=== PATIENT | female | born 1980 | race Caucasian/White ===

== ENCOUNTER 2016-05-11 00:57 | Emergency (ER) | payer MEDICAID ==
[~2016-05-11] VITALS: Ht 177.8 cm; Wt 84.8 kg
[~2016-05-11 00:57] MED LIST: ALBU8HFA4 IH; BENZ1TAB7 PO; DIAZ5TAB PO; GABA-534 PO; HYDR-3326 PO; IBUP-1610 PO; LORA1TAB PO; LURA60TA PO; METO10TA3 PO; NAPR375T4 PO; OMEP20CA10 PO; ONDA4TAB8 PO; PREN1TAB59 PO
[2016-05-11 01:31] LABS: *BILIRUBIN,URIN NEGATIVE (NEGATIVE); *BLOOD, URINE 2+ (NEGATIVE); *CLARITY,URINE CLEAR (CLEAR); *COLOR,URINE YELLOW (YELLOW); *KETONES,URINE NEGATIVE (NEGATIVE); *PROTEIN,URINE TRACE (NEGATIVE); *UROBILINOGEN,URINE 0.2 E.U./dl (NORMAL); LEUKOCYTE ESTERASE ,URINE NEGATIVE (NEGATIVE); NITRITE, URINE NEGATIVE (NEGATIVE); PH,URINE 5.5 (5.0-8.0); UGLUCOSE NEGATIVE (NEGATIVE)
[2016-05-11 01:37] LABS: RBC,URINE 50-80 /HPF (0-3)
[2016-05-11 01:38] LABS: *URINE HCG, QUAL NEGATIVE (NEGATIVE); BACTERIA,URINE FEW /HPF (NONE SEEN); MUCUS,URINE MODERATE /LPF (0-FEW); SQUAMOUS EPITHELIAL CELL,UR MANY /HPF (NONE SEEN); WBC,URINE 0-3 /HPF (0-3)
[2016-05-11] MEDS ORDERED: CEFTRIAXONE 1 G VIAL IM ONE (02:00)
[2016-05-11] MEDS ORDERED: LIDOCAINE HCL 1% 20 ML VIAL ONE (02:01)
[2016-05-11] MEDS ORDERED: CEFTRIAXONE 1 G VIAL ONE (02:01)
[2016-05-11] MEDS ORDERED: PROMETHAZINE HCL 25 MG/1 ML VIAL IM ONE (02:45)
[2016-05-11] MEDS ORDERED: HYDROMORPHONE 1 MG/1 ML DISP.SYRIN IM ONE (02:45)
[2016-05-11] MEDS ORDERED: PROMETHAZINE HCL 25 MG/1 ML VIAL ONE (02:56)
[2016-05-11] MEDS ORDERED: HYDROMORPHONE 2 MG/1 ML DISP.SYRIN ONE (02:56)
[2016-05-11 03:19] VITALS: BP 115/70
--- NOTE | 2016-05-11 03:19 | NUR ---
Patient discharged to home in stable conditon. Written and verbal after care instructions given. Patient verbalizes understanding of instructions.
== END 2016-05-11 03:19 | disposition home or self-care (01) ==
LOC: ER 01:02
DX: N20.0 Calculus of kidney (principal); J45.909 Unspecified asthma, uncomplicated; K21.9 Gastro-esophageal reflux disease without esophagitis; F32.9 Major depressive disorder, single episode, unspecified; Z88.8 Allergy status to other drugs, medicaments and biological substances
CPT/HCPCS: 74176; 81001; 84703; 96372 ×3; 99285; A4663; J0696; J1170; J2550; J3490

== ENCOUNTER 2016-05-13 21:20 | Emergency (ER) | payer MEDICAID ==
[~2016-05-13] VITALS: Ht 177.8 cm; Wt 84.8 kg
--- NOTE | 2016-05-13 21:23 | NUR ---
PT C/O ABDOMINAL PAIN,BACK PAIN AND PAINFUL URINATION SINCE 05/09/16. PT SAW OBGYN FOR PELVIC INFECTION ON 05/09/16 AND WAS DX WITH PELVIC INFECTION. HERE FOR WORSENING SYMPTOMS. PT IS ALERT, ORIENTED X 4, NO RESP DISTRESS NOTED OR REPORTED UPON ASSESSMENT. MD AT BEDSIDE...
[2016-05-13] MEDS ORDERED: KETOROLAC TROMETHAMINE 15 MG INJ IVP ONE (22:00)
[2016-05-13] MEDS ORDERED: IV NORMAL SALINE 1000 ML BAG IV ONE (22:00)
[2016-05-13] MEDS ORDERED: KETOROLAC TROMETHAMINE 15 MG INJ ONE (22:14)
[2016-05-13] MEDS ORDERED: ONDANSETRON IV *ER 4 MG/2 ML VIAL IV ONE (22:15)
[2016-05-13 22:24] LABS: BASOPHILS # (AUTO) 0.1 K/uL (0.0-0.2); BASOPHILS % (AUTO) 1.4 % (0.0-2.0); EOSINOPHILS # (AUTO) 0.1 K/uL (0.0-0.7); EOSINOPHILS % (AUTO) 0.9 % (0.0-7.0); HEMATOCRIT 41.1 % (37.0-47.0); HEMOGLOBIN 13.7 g/dL (12.0-16.0); LYMPHOCYTES # (AUTO) 2.7 K/uL (0.8-4.8); LYMPHOCYTES % (AUTO) 38.4 % (20.5-51.5); MEAN CORPUSCULAR HEMOGLOBIN 29.4 uug (27.0-31.0); MEAN CORPUSCULAR HGB CONC 33 g/dL (32.0-37.0); MONOCYTES # (AUTO) 0.5 K/uL (0.1-1.30); MONOCYTES % (AUTO) 7.6 % (0.0-11.0); NEUTROPHILS # (AUTO) 3.7 K/uL (1.8-8.9); NEUTROPHILS % (AUTO) 51.7 % (38.5-71.5); PLATELET COUNT (AUTO) 183 K/uL (150-450); RED BLOOD CELL COUNT(AUTO) 4.67 MIL/uL (4.20-5.40); RED CELL DISTRIBUTION WIDTH 13.3 % (11.5-14.5); WHITE BLOOD COUNT (AUTO) 7.1 K/uL (4.0-11.2)
[2016-05-13 22:29] LABS: CALCIUM 8.5 mg/dL (8.5-10.1); CREATININE 1.2 mg/dL (0.6-1.3); POTASSIUM 3.4 mmol/L (3.5-5.1)
[2016-05-13 22:35] LABS: ALBUMIN 4.2 g/dL (3.4-5.0); BILIRUBIN,DIRECT 0.1 mg/dL (0.0-0.2); BILIRUBIN,TOTAL 0.3 mg/dL (0.2-1.0); TOTAL PROTEIN, SERUM 7.4 g/dL (6.4-8.2)
[2016-05-13] MEDS ORDERED: ONDANSETRON 4 MG/2 ML VIAL ONE (22:35)
[2016-05-13 22:37] LABS: LACTIC ACID 1.5 mmol/L (0.4-2.0); TROPONIN I < 0.017 ng/mL (0.00-0.056)
--- NOTE | 2016-05-14 00:34 | NUR ---
Patient discharged to home in stable conditon. Written and verbal after care instructions given. Patient verbalizes understanding of instructions. pt walked out of ER unassisted with belongings at side...
[2016-05-14 00:35] VITALS: BP 131/97
== END 2016-05-14 00:36 | disposition home or self-care (01) ==
LOC: ER 21:20
DX: R31.9 Hematuria, unspecified (principal); E86.0 Dehydration; J45.909 Unspecified asthma, uncomplicated; K21.9 Gastro-esophageal reflux disease without esophagitis; F32.9 Major depressive disorder, single episode, unspecified; F10.20 Alcohol dependence, uncomplicated; F17.200 Nicotine dependence, unspecified, uncomplicated; F12.10 Cannabis abuse, uncomplicated; Z88.8 Allergy status to other drugs, medicaments and biological substances
CPT/HCPCS: 36415; 80048; 80076; 83605; 84484; 85025; 87040 ×2; 96361; 96374; 96375; 99285; A4663; J1885; J2405; J7030 ×2; 70030-TC

== ENCOUNTER 2016-05-21 23:36 | Emergency (ER) | payer MEDICAID, OTHER ==
[~2016-05-21] VITALS: Ht 177.8 cm; Wt 84.8 kg
[2016-05-21] MEDS ORDERED: [UNRECOGNIZED DRUG - REMARK] (23:58)
[2016-05-21] MEDS ORDERED: [UNRECOGNIZED DRUG - REMARK] (23:58)
[2016-05-22] MEDS ORDERED: ONDANSETRON 4 MG/2 ML VIAL IV ONE (00:15)
[2016-05-22] MEDS ORDERED: HYDROMORPHONE 1 MG/1 ML DISP.SYRIN IV ONE (00:15)
[2016-05-22] MEDS ORDERED: IV NORMAL SALINE 1000 ML BAG IV ONE (00:15)
[2016-05-22] MEDS ORDERED: HYDROMORPHONE 1 MG/1 ML DISP.SYRIN ONE (00:34)
[2016-05-22] MEDS ORDERED: ONDANSETRON 4 MG/2 ML VIAL ONE ×2 (00:34→02:44)
[2016-05-22 00:41] LABS: CALCIUM 10.8 mg/dL (8.5-10.1); CARBON DIOXIDE 25 mmol/L (21-32); CHLORIDE 103 mmol/L (98-107); CREATININE 0.9 mg/dL (0.6-1.3); GFR 71 mL/min (>60); GLUCOSE 99 mg/dL (74-106); POTASSIUM 3.7 mmol/L (3.5-5.1); SODIUM SERUM 139 mmol/L (136-145); UREA NITROGEN, BLOOD 20 mg/dL (7-18)
[2016-05-22 00:50] LABS: BASOPHILS # (AUTO) 0.1 K/uL (0.0-0.2); BASOPHILS % (AUTO) 0.8 % (0.0-2.0); EOSINOPHILS % (AUTO) 0.7 % (0.0-7.0); HEMATOCRIT 38.9 % (37.0-47.0); HEMOGLOBIN 13.3 g/dL (12.0-16.0); LYMPHOCYTES # (AUTO) 2.6 K/uL (0.8-4.8); LYMPHOCYTES % (AUTO) 39.9 % (20.5-51.5); MEAN CORPUSCULAR HGB CONC 34 g/dL (32.0-37.0); MEAN CORPUSCULAR VOLUME 88.1 fL (81.0-99.0); MONOCYTES # (AUTO) 0.6 K/uL (0.1-1.30); MONOCYTES % (AUTO) 9.8 % (0.0-11.0); NEUTROPHILS # (AUTO) 3.3 K/uL (1.8-8.9); NEUTROPHILS % (AUTO) 48.8 % (38.5-71.5); PLATELET COUNT (AUTO) 175 K/uL (150-450); RED BLOOD CELL COUNT(AUTO) 4.42 MIL/uL (4.20-5.40); RED CELL DISTRIBUTION WIDTH 13.2 % (11.5-14.5); WHITE BLOOD COUNT (AUTO) 6.6 K/uL (4.0-11.2)
[2016-05-22 00:52] LABS: ALANINE AMINOTRANSFERASE 22 U/L (14-59); ALBUMIN 4.2 g/dL (3.4-5.0); ALKALINE PHOSPHATASE 51 U/L (50-136); ASPARTATE AMINOTRANSFERASE 25 U/L (15-37); BILIRUBIN,DIRECT < 0.1 mg/dL (0.0-0.2); BILIRUBIN,TOTAL 0.4 mg/dL (0.2-1.0); LIPASE 84 U/L (73-393); TOTAL PROTEIN, SERUM 7.1 g/dL (6.4-8.2)
[2016-05-22] MEDS ORDERED: MAG HYDROX/AL HYDROX/SIMETH 30 ML LIQUID UDC PO ONE (01:00)
[2016-05-22] MEDS ORDERED: DICYCLOMINE HCL 10 MG/5 ML UDC LIQ PO ONE (01:00)
[2016-05-22] MEDS ORDERED: PANTOPRAZOLE SODIUM IV 40 MG in IV DEXTROSE 5% 100 ML IV ONE (01:00)
[2016-05-22 01:02] LABS: *BILIRUBIN,URIN NEGATIVE (NEGATIVE); *BLOOD, URINE Trace-lysed (NEGATIVE); *CLARITY,URINE SLIGHTLY CLOUDY (CLEAR); *COLOR,URINE YELLOW (YELLOW); *KETONES,URINE NEGATIVE (NEGATIVE); *PROTEIN,URINE NEGATIVE (NEGATIVE); *UROBILINOGEN,URINE 0.2 E.U./dl (NORMAL); LEUKOCYTE ESTERASE ,URINE NEGATIVE (NEGATIVE); NITRITE, URINE NEGATIVE (NEGATIVE); PH,URINE 6.5 (5.0-8.0); UGLUCOSE NEGATIVE (NEGATIVE)
[2016-05-22 01:07] LABS: *URINE HCG, QUAL NEGATIVE (NEGATIVE); BACTERIA,URINE FEW /HPF (NONE SEEN); RBC,URINE 0-3 /HPF (0-3); SQUAMOUS EPITHELIAL CELL,UR FEW /HPF (NONE SEEN); WBC,URINE 0-3 /HPF (0-3)
[2016-05-22] MEDS ORDERED: DICYCLOMINE HCL 10 MG/5 ML UDC LIQ ONE (01:09)
[2016-05-22] MEDS ORDERED: PANTOPRAZOLE SODIUM 40 MG VIAL ONE ×2 (01:09→02:44)
[2016-05-22] MEDS ORDERED: MAG HYDROX/AL HYDROX/SIMETH 30 ML LIQUID UDC ONE (01:09)
[2016-05-22] MEDS ORDERED: PANTOPRAZOLE SODIUM 40 MG VIAL IV ONE (02:30)
[2016-05-22] MEDS ORDERED: ONDANSETRON IV *ER 4 MG/2 ML VIAL IV ONE (02:30)
--- NOTE | 2016-05-22 02:45 | NUR ---
IV removed. Catheter intact and site benign. Pressure and 4x4 gauze applied to site. No bleeding noted.
[2016-05-22 02:48] VITALS: BP 128/88
--- NOTE | 2016-05-22 02:48 | NUR ---
Patient discharged to home in stable conditon. Written and verbal after care instructions given. Patient verbalizes understanding of instructions. Walked out of ER with steady gait
== END 2016-05-22 02:49 | disposition home or self-care (01) ==
LOC: ER 23:38
DX: K21.9 Gastro-esophageal reflux disease without esophagitis (principal); F32.9 Major depressive disorder, single episode, unspecified; J45.909 Unspecified asthma, uncomplicated; F10.20 Alcohol dependence, uncomplicated; F17.200 Nicotine dependence, unspecified, uncomplicated; F12.10 Cannabis abuse, uncomplicated; Z88.8 Allergy status to other drugs, medicaments and biological substances
CPT/HCPCS: 36415; 76705; 80048; 80076; 81001; 83690; 84703; 85025; 96361; 96365; 96375; 96376; 99285; A4663 ×2; C9113 ×2; J1170; J2405 ×2; J7030; J7060

== ENCOUNTER 2016-06-10 19:48 | Emergency (ER) | payer MEDICAID, OTHER ==
[~2016-06-10] VITALS: Ht 177.8 cm; Wt 81.6 kg
[~2016-06-10 19:48] MED LIST changes: +[UNRECOGNIZED DRUG - REMARK]; +[UNRECOGNIZED DRUG - REMARK]
--- NOTE | 2016-06-10 20:00 | NUR ---
PT WALKED INTO ER C/O LEFT FLANK PAIN X1 DAY
[2016-06-10] MEDS: OXYCODONE/APAP 5-325 MG TABLET PO ONE (20:08)
[2016-06-10] MEDS ORDERED: OXYCODONE/APAP 5-325 MG TABLET ONE (20:16)
[2016-06-10 20:31] LABS: *BILIRUBIN,URIN NEGATIVE (NEGATIVE); *BLOOD, URINE 2+ (NEGATIVE); *CLARITY,URINE CLEAR (CLEAR); *COLOR,URINE YELLOW (YELLOW); *KETONES,URINE NEGATIVE (NEGATIVE); *PROTEIN,URINE TRACE (NEGATIVE); *UROBILINOGEN,URINE 0.2 E.U./dl (NORMAL); LEUKOCYTE ESTERASE ,URINE TRACE (NEGATIVE); NITRITE, URINE NEGATIVE (NEGATIVE); PH,URINE 5.5 (5.0-8.0); UGLUCOSE NEGATIVE (NEGATIVE)
[2016-06-10 20:33] LABS: *URINE HCG, QUAL NEGATIVE (NEGATIVE)
[2016-06-10 20:37] LABS: BACTERIA,URINE MODERATE /HPF (NONE SEEN); SQUAMOUS EPITHELIAL CELL,UR FEW /HPF (NONE SEEN); WBC,URINE 20-50 /HPF (0-3)
[2016-06-10] MEDS: CEFTRIAXONE 1 G VIAL IM ONE (21:03)
[2016-06-10] MEDS: NITROFURANTOIN/NITROFURAN MAC 100 MG CAPSULE PO ONE (21:03)
[2016-06-10] MEDS: ONDANSETRON ODT 4 MG TAB.RAPDIS SL ONE (21:05)
[2016-06-10] MEDS ORDERED: CEFTRIAXONE 1 G VIAL ONE (21:09)
[2016-06-10] MEDS ORDERED: NITROFURANTOIN/NITROFURAN MAC 100 MG CAPSULE ONE (21:09)
[2016-06-10] MEDS ORDERED: LIDOCAINE HCL 1% 20 ML VIAL ONE (21:09)
--- NOTE | 2016-06-10 21:12 | NUR ---
Patient discharged to home in stable conditon WITH FAMILY TAKING PT HOME. Written and verbal after care instructions given. Patient verbalizes understanding of instructions. WALKED OUT OF ER WITH STEADY GAIT
[2016-06-10 21:13] VITALS: BP 128/77
[2016-06-10] MEDS ORDERED: ONDANSETRON ODT 4 MG TAB.RAPDIS ONE (21:15)
== END 2016-06-10 21:13 | disposition home or self-care (01) ==
LOC: ER 19:48
DX: N12 Tubulo-interstitial nephritis, not specified as acute or chronic (principal); J45.909 Unspecified asthma, uncomplicated; K21.9 Gastro-esophageal reflux disease without esophagitis; F32.9 Major depressive disorder, single episode, unspecified; F10.20 Alcohol dependence, uncomplicated; F12.10 Cannabis abuse, uncomplicated; F17.200 Nicotine dependence, unspecified, uncomplicated; Z88.8 Allergy status to other drugs, medicaments and biological substances
CPT/HCPCS: 84703; 87077; 87086; A4663; J0696; J3490; Q0162

== ENCOUNTER 2016-06-28 14:08 | Emergency (ER) | payer MEDICAID ==
[~2016-06-28] VITALS: Ht 177.8 cm; Wt 84.8 kg
[2016-06-28] MEDS ORDERED: ALPR2TAB7 PO (14:21)
[2016-06-28] MEDS ORDERED: OXYB10TA4 PO (14:21)
[2016-06-28] MEDS ORDERED: ARIP400S3 IM (14:21)
[2016-06-28] MEDS ORDERED: OXCA600T5 PO (14:21)
--- NOTE | 2016-06-28 15:55 | NUR ---
Patient discharged to home in stable conditon. Written and verbal after care instructions given. Patient verbalizes understanding of instructions.
[2016-06-28 15:56] VITALS: BP 112/70
== END 2016-06-28 15:56 | disposition home or self-care (01) ==
LOC: ER 14:08
DX: M54.9 Dorsalgia, unspecified (principal); J45.909 Unspecified asthma, uncomplicated; K21.9 Gastro-esophageal reflux disease without esophagitis; F32.9 Major depressive disorder, single episode, unspecified; F10.20 Alcohol dependence, uncomplicated; F17.200 Nicotine dependence, unspecified, uncomplicated; F12.10 Cannabis abuse, uncomplicated; Z88.8 Allergy status to other drugs, medicaments and biological substances
CPT/HCPCS: A4663

== ENCOUNTER 2016-08-01 09:10 | Emergency (ER) | payer MEDICAID ==
[~2016-08-01] VITALS: Ht 177.8 cm; Wt 81.2 kg
[~2016-08-01 09:10] MED LIST changes: +ALPR2TAB7 PO; +ARIP400S3 IM; -BENZ1TAB7 PO; -DIAZ5TAB PO; -GABA-534 PO; -HYDR-3326 PO; -LORA1TAB PO; -LURA60TA PO; -METO10TA3 PO; -NAPR375T4 PO; -ONDA4TAB8 PO; +OXCA600T5 PO; +OXYB10TA4 PO; -PREN1TAB59 PO; -[UNRECOGNIZED DRUG - REMARK]
--- NOTE | 2016-08-01 09:29 | NUR ---
Pt states that she sneezed and felt a "pop" in her lower back, hx previous surgery arould L5. Pt c/o pain, 10/21, ache w/sharp shooting pain on movement, pt denies new numbness/tingling (ongoing issue of same in right leg) in other limbs. No other complaints, minor distress noted.
[2016-08-01] MEDS ORDERED: KETOROLAC TROMETHAMINE 30 MG INJ IM ONE (10:00)
[2016-08-01] MEDS ORDERED: HYDROCODONE/APAP 5-325MG TABLET PO ONE (10:00)
--- NOTE | 2016-08-01 10:18 | NUR ---
gave pt RX and d/c instructions, verbalized understanding; driving
[2016-08-01] MEDS ORDERED: KETOROLAC TROMETHAMINE 30 MG INJ ONE (10:21)
[2016-08-01] MEDS ORDERED: HYDROCODONE/APAP 5-325MG TABLET ONE (10:21)
== END 2016-08-01 10:19 | disposition home or self-care (01) ==
LOC: ER 09:10
DX: M54.5 Low back pain (principal); G89.29 Other chronic pain; J45.909 Unspecified asthma, uncomplicated; K21.9 Gastro-esophageal reflux disease without esophagitis; F32.9 Major depressive disorder, single episode, unspecified; F10.20 Alcohol dependence, uncomplicated; F19.10 Other psychoactive substance abuse, uncomplicated; F17.200 Nicotine dependence, unspecified, uncomplicated; Z88.8 Allergy status to other drugs, medicaments and biological substances
CPT/HCPCS: 96372; 99283; A4663; J1885

== ENCOUNTER 2016-10-02 09:29 | Emergency (ER) | payer MEDICAID ==
[~2016-10-02] VITALS: Ht 177.8 cm; Wt 86.2 kg
[2016-10-02] MEDS ORDERED: TRAM50TA2 PO (09:44)
[2016-10-02] MEDS ORDERED: TOPI50TA PO (09:44)
[2016-10-02 09:53] LABS: *BILIRUBIN,URIN NEGATIVE (NEGATIVE); *BLOOD, URINE Trace-intact (NEGATIVE); *COLOR,URINE YELLOW (YELLOW); *KETONES,URINE NEGATIVE (NEGATIVE); *PROTEIN,URINE NEGATIVE (NEGATIVE); *UROBILINOGEN,URINE 0.2 E.U./dl (NORMAL); LEUKOCYTE ESTERASE ,URINE NEGATIVE (NEGATIVE); NITRITE, URINE NEGATIVE (NEGATIVE); PH,URINE 6.5 (5.0-8.0); UGLUCOSE NEGATIVE (NEGATIVE)
[2016-10-02 10:08] LABS: *CLARITY,URINE HAZY (CLEAR)
[2016-10-02 10:09] LABS: BACTERIA,URINE MANY /HPF (NONE SEEN); MUCUS,URINE FEW /LPF (0-FEW); SQUAMOUS EPITHELIAL CELL,UR FEW /HPF (NONE SEEN); WBC,URINE 0-3 /HPF (0-3)
[2016-10-02 10:17] LABS: *URINE HCG, QUAL NEGATIVE (NEGATIVE)
--- NOTE | 2016-10-02 10:19 | NUR ---
Patient discharged to home in stable conditon. Written and verbal after care instructions given. Patient verbalizes understanding of instructions.
== END 2016-10-02 10:22 | disposition home or self-care (01) ==
LOC: ER 09:29
DX: R30.0 Dysuria (principal); J45.909 Unspecified asthma, uncomplicated; K21.9 Gastro-esophageal reflux disease without esophagitis; G89.29 Other chronic pain; M54.9 Dorsalgia, unspecified; F17.200 Nicotine dependence, unspecified, uncomplicated; Z88.8 Allergy status to other drugs, medicaments and biological substances
CPT/HCPCS: 84703; A4663

== ENCOUNTER 2016-10-15 13:11 | Emergency (ER) | payer MEDICAID ==
[~2016-10-15] VITALS: Ht 177.8 cm; Wt 80.7 kg
[~2016-10-15 13:11] MED LIST changes: +TOPI50TA PO; +TRAM50TA2 PO
[2016-10-15] MEDS ORDERED: TOLT4CAP PO (13:50)
[2016-10-15] MEDS ORDERED: TOPI25TA49 PO (13:50)
[2016-10-15] MEDS ORDERED: OXCA300T PO (13:50)
[2016-10-15] MEDS ORDERED: ONDA4TAB11 PO (13:50)
[2016-10-15] MEDS ORDERED: POTA10TA21 PO (13:50)
[2016-10-15] MEDS ORDERED: [UNRECOGNIZED DRUG - OTHER] PO (13:50)
[2016-10-15] MEDS ORDERED: TRINTELLIX PO (13:54)
[2016-10-15] MEDS ORDERED: GABA-534 PO (13:54)
[2016-10-15 14:43] LABS: *BILIRUBIN,URIN NEGATIVE (NEGATIVE); *BLOOD, URINE 2+ (NEGATIVE); *CLARITY,URINE CLEAR (CLEAR); *COLOR,URINE YELLOW (YELLOW); *KETONES,URINE 1+ (NEGATIVE); *PROTEIN,URINE NEGATIVE (NEGATIVE); *UROBILINOGEN,URINE 0.2 E.U./dl (NORMAL); LEUKOCYTE ESTERASE ,URINE TRACE (NEGATIVE); NITRITE, URINE NEGATIVE (NEGATIVE); UGLUCOSE NEGATIVE (NEGATIVE)
[2016-10-15] MEDS ORDERED: ALBUTEROL SULFATE 2.5 MG/3 ML NEBU NEB ONE (14:45)
[2016-10-15 14:46] LABS: *URINE HCG, QUAL NEGATIVE (NEGATIVE)
[2016-10-15] MEDS ORDERED: ALBUTEROL SULFATE 2.5 MG/3 ML NEBU ONE (14:54)
[2016-10-15 14:57] LABS: BACTERIA,URINE NONE SEEN /HPF (NONE SEEN); SQUAMOUS EPITHELIAL CELL,UR FEW /HPF (NONE SEEN)
--- NOTE | 2016-10-15 15:31 | NUR ---
PT REC'D RESP TX.
--- NOTE | 2016-10-15 16:33 | NUR ---
MSE COMPLETED, PT D/C'D HOME, ACI/RX X1 GIVEN. PT STATED HER ABD PAIN WAS BETTER. PT AMBULATED W/O DIFF/TOOK ALL BELONGINGS.
[2016-10-15 16:54] VITALS: BP 108/76
== END 2016-10-15 16:54 | disposition home or self-care (01) ==
LOC: ER 13:19
DX: R10.9 Unspecified abdominal pain (principal); R30.0 Dysuria; R51 Headache; J45.909 Unspecified asthma, uncomplicated; K21.9 Gastro-esophageal reflux disease without esophagitis; F17.200 Nicotine dependence, unspecified, uncomplicated; Z88.8 Allergy status to other drugs, medicaments and biological substances
CPT/HCPCS: 84703; 87077; 87086; A4663

== ENCOUNTER 2016-11-03 17:05 | Emergency (ER) | payer MEDICAID ==
[~2016-11-03] VITALS: Ht 177.8 cm; Wt 79.4 kg
[~2016-11-03 17:05] MED LIST changes: -ARIP400S3 IM; +GABA-534 PO; -OMEP20CA10 PO; +ONDA4TAB11 PO; +OXCA300T PO; -OXCA600T5 PO; -OXYB10TA4 PO; +POTA10TA21 PO; +TOLT4CAP PO; +TOPI25TA49 PO; -TOPI50TA PO; +TRINTELLIX PO; -[UNRECOGNIZED DRUG - REMARK]
--- NOTE | 2016-11-03 17:59 | NUR ---
PT WAS EVALUATED BY DR SHANNON. PT WAS MDICATED ACCORDING TO ER MD ORDERS. PT TOLERATED TO MEDICATION WITHOUT COMPLICATIONS. PT WAS D/C TO HOME. D/C INSTRUCTIONS GIVEN TO THE PT.
[2016-11-03 18:00] VITALS: BP 136/77
== END 2016-11-03 18:01 | disposition home or self-care (01) ==
LOC: ER 17:05
DX: N76.0 Acute vaginitis (principal); K21.9 Gastro-esophageal reflux disease without esophagitis; J45.909 Unspecified asthma, uncomplicated; Z87.442 Personal history of urinary calculi; F17.200 Nicotine dependence, unspecified, uncomplicated; I34.1 Nonrheumatic mitral (valve) prolapse
CPT/HCPCS: 96372; 99283; A4663; J0696; J3490

== ENCOUNTER 2016-12-03 23:01 | Emergency (ER) | payer MEDICAID ==
[~2016-12-03] VITALS: Ht 177.8 cm; Wt 81.6 kg
[2016-12-03 23:55] LABS: *BILIRUBIN,URIN NEGATIVE (NEGATIVE); *BLOOD, URINE NEGATIVE (NEGATIVE); *CLARITY,URINE CLEAR (CLEAR); *COLOR,URINE YELLOW (YELLOW); *KETONES,URINE TRACE (NEGATIVE); *PROTEIN,URINE NEGATIVE (NEGATIVE); LEUKOCYTE ESTERASE ,URINE NEGATIVE (NEGATIVE); NITRITE, URINE NEGATIVE (NEGATIVE); UGLUCOSE NEGATIVE (NEGATIVE)
[2016-12-04 00:12] LABS: BACTERIA,URINE NONE SEEN /HPF (NONE SEEN); CALCIUM OXALATE CRYSTALS,UR MODERATE /HPF (NONE SEEN); MUCUS,URINE MODERATE /LPF (0-FEW); SQUAMOUS EPITHELIAL CELL,UR MODERATE /HPF (NONE SEEN)
[2016-12-04 00:17] LABS: *URINE HCG, QUAL NEGATIVE (NEGATIVE)
[2016-12-04] MEDS ORDERED: IBUPROFEN 800 MG TABLET PO ONE (01:15)
[2016-12-04] MEDS ORDERED: IBUPROFEN 800 MG TABLET ONE (01:37)
[2016-12-04 01:40] LABS: BASOPHILS # (AUTO) 0.1 K/uL (0.0-8.0); EOSINOPHILS # (AUTO) 0.1 K/uL (0.0-0.7); EOSINOPHILS % (AUTO) 1.3 % (0.0-7.0); HEMATOCRIT 42.3 % (37-47); LYMPHOCYTES % (AUTO) 33.3 % (20.5-51.5); MEAN CORPUSCULAR HEMOGLOBIN 29.9 UUG (27.0-31.0); MEAN CORPUSCULAR HGB CONC 33 g/dL (32.0-37.0); MEAN CORPUSCULAR VOLUME 90.3 FL (81.0-99.0); MONOCYTES # (AUTO) 0.9 K/UL (0.1-1.30); MONOCYTES % (AUTO) 9.6 % (0.0-11.0); NEUTROPHILS # (AUTO) 4.9 K/UL (1.8-8.9); NEUTROPHILS % (AUTO) 54.8 % (38.5-71.5); PLATELET COUNT (AUTO) 184 K/UL (150-450); RED BLOOD CELL COUNT(AUTO) 4.68 MIL/UL (4.2-5.4)
[2016-12-04 01:51] LABS: BILIRUBIN,DIRECT 0.1 mg/dL (0.0-0.2); BILIRUBIN,TOTAL 0.2 mg/dL (0.2-1.0); POTASSIUM 3.5 mmol/L (3.5-5.1)
[2016-12-04] MEDS ORDERED: BISACODYL 5 MG TABLET.DR PO ONE ×2 (03:15→03:16)
[2016-12-04] MEDS ORDERED: ONDANSETRON ODT 4 MG TAB.RAPDIS SL ONE (03:15)
[2016-12-04] MEDS ORDERED: ONDANSETRON ODT 4 MG TAB.RAPDIS ONE (03:29)
[2016-12-04] MEDS ORDERED: PHENAZOPYRIDINE HCL 100 MG TABLET PO ONE (03:30)
[2016-12-04 03:33] VITALS: BP 116/84
--- NOTE | 2016-12-04 03:33 | NUR ---
Patient discharged to home in stable conditon. Written and verbal after care instructions given. Patient verbalizes understanding of instructions.
[2016-12-04] MEDS ORDERED: PHENAZOPYRIDINE HCL 100 MG TABLET ONE (03:39)
== END 2016-12-04 03:35 | disposition home or self-care (01) ==
LOC: ER 23:02
DX: R30.0 Dysuria (principal); J45.909 Unspecified asthma, uncomplicated; K21.9 Gastro-esophageal reflux disease without esophagitis; G89.29 Other chronic pain; F17.200 Nicotine dependence, unspecified, uncomplicated
CPT/HCPCS: 36415; 74176; 80048; 80076; 81001; 83690; 84703; 85025; 87086; 99285; A4663; Q0162; 87077

== ENCOUNTER 2017-01-06 10:55 | Emergency (ER) | payer MEDICAID ==
[~2017-01-06] VITALS: Ht 177.8 cm; Wt 81.6 kg
--- NOTE | 2017-01-06 11:29 | NUR ---
Patient spilled the prednisone tablets on the floor. New tabs provided and patient took the pills successfully.
[2017-01-06] MEDS ORDERED: ALBUTEROL SULFATE 2.5 MG/3 ML NEBU NEB ONE (11:30)
[2017-01-06] MEDS ORDERED: IPRATROPIUM BROMIDE 0.5 MG/2.5 ML NEBU NEB ONE (11:30)
[2017-01-06] MEDS ORDERED: predniSONE 20 MG TABLET PO ONE (11:30)
[2017-01-06] MEDS ORDERED: ALBUTEROL SULFATE 2.5 MG/ 0.5 ML NEBU ONE (11:42)
[2017-01-06] MEDS ORDERED: IPRATROPIUM BROMIDE 0.5 MG/2.5 ML NEBU ONE (11:42)
[2017-01-06] MEDS ORDERED: predniSONE 50 MG TABLET ONE ×2 (11:43→11:45)
[2017-01-06] MEDS ORDERED: predniSONE 10 MG TABLET ONE ×2 (11:43→11:45)
--- NOTE | 2017-01-06 11:55 | NUR ---
Patient that she feels much better. Patient discharged to home in stable conditon. Written and verbal after care instructions given to patient. Patient verbalizes understanding of instructions.
== END 2017-01-06 11:57 | disposition home or self-care (01) ==
LOC: ER 10:55
DX: J45.901 Unspecified asthma with (acute) exacerbation (principal); G89.29 Other chronic pain; F32.9 Major depressive disorder, single episode, unspecified; I34.1 Nonrheumatic mitral (valve) prolapse; K21.9 Gastro-esophageal reflux disease without esophagitis; F17.200 Nicotine dependence, unspecified, uncomplicated; Z88.8 Allergy status to other drugs, medicaments and biological substances; Z90.49 Acquired absence of other specified parts of digestive tract
CPT/HCPCS: 94640; 99283; A4663; J3590; J7512 ×2

== ENCOUNTER 2017-02-19 11:02 | Emergency (ER) | payer MEDICAID ==
[~2017-02-19] VITALS: Ht 177.8 cm; Wt 81.6 kg
[~2017-02-19 11:02] MED LIST changes: -IBUP-1610 PO; +IBUP-1627 PO
--- NOTE | 2017-02-19 12:02 | NUR ---
Patient discharged to home in stable conditon. Written and verbal after care instructions given. Patient verbalizes understanding of instructions.
[2017-02-19 12:39] LABS: *BILIRUBIN,URIN NEGATIVE (NEGATIVE); *BLOOD, URINE 2+ (NEGATIVE); *CLARITY,URINE CLEAR (CLEAR); *COLOR,URINE YELLOW (YELLOW); *KETONES,URINE NEGATIVE (NEGATIVE); *PROTEIN,URINE NEGATIVE (NEGATIVE); *UROBILINOGEN,URINE 0.2 E.U./dl (NORMAL); LEUKOCYTE ESTERASE ,URINE NEGATIVE (NEGATIVE); NITRITE, URINE NEGATIVE (NEGATIVE); UGLUCOSE NEGATIVE (NEGATIVE)
[2017-02-19 12:40] LABS: *URINE HCG, QUAL NEGATIVE (NEGATIVE)
[2017-02-19 14:52] LABS: BACTERIA,URINE FEW /HPF (NONE SEEN); RBC,URINE 0-3 /HPF (0-3); SQUAMOUS EPITHELIAL CELL,UR FEW /HPF (NONE SEEN); WBC,URINE 0-3 /HPF (0-3)
== END 2017-02-19 12:05 | disposition home or self-care (01) ==
LOC: ER 11:02
DX: N39.0 Urinary tract infection, site not specified (principal); K21.9 Gastro-esophageal reflux disease without esophagitis; G89.29 Other chronic pain; J45.909 Unspecified asthma, uncomplicated; F17.200 Nicotine dependence, unspecified, uncomplicated; Z88.8 Allergy status to other drugs, medicaments and biological substances; Z90.49 Acquired absence of other specified parts of digestive tract
CPT/HCPCS: 84703; A4663

== ENCOUNTER 2017-05-06 22:14 | Emergency (ER) | payer MEDICAID ==
[~2017-05-06] VITALS: Ht 177.8 cm; Wt 81.6 kg
[2017-05-06] MEDS ORDERED: NAPR220C15 PO (22:28)
--- NOTE | 2017-05-06 22:35 | NUR ---
Patient provided urine sample, sent to lab.
--- NOTE | 2017-05-06 22:36 | NUR ---
Dr. Snyder at bedside for MSE.
[2017-05-06 22:42] LABS: *BILIRUBIN,URIN NEGATIVE (NEGATIVE); *BLOOD, URINE 1+ (NEGATIVE); *CLARITY,URINE SLIGHTLY HAZY (CLEAR); *COLOR,URINE YELLOW (YELLOW); *KETONES,URINE NEGATIVE (NEGATIVE); *PROTEIN,URINE NEGATIVE (NEGATIVE); *UROBILINOGEN,URINE 0.2 E.U./dl (NORMAL); LEUKOCYTE ESTERASE ,URINE 1+ (NEGATIVE); NITRITE, URINE NEGATIVE (NEGATIVE); PH,URINE 6.5 (5.0-8.0); UGLUCOSE NEGATIVE (NEGATIVE)
[2017-05-06 22:43] LABS: *URINE HCG, QUAL NEGATIVE (NEGATIVE)
[2017-05-06] MEDS ORDERED: PHENAZOPYRIDINE HCL 100 MG TABLET ONE (22:44)
[2017-05-06] MEDS ORDERED: SULFAMETH/TRIMETH 800/160 MG TABLET ONE (22:44)
[2017-05-06] MEDS ORDERED: PHENAZOPYRIDINE HCL 100 MG TABLET PO ONE (22:45)
[2017-05-06] MEDS ORDERED: SULFAMETH/TRIMETH 800/160 MG TABLET PO ONE (22:45)
[2017-05-06 22:46] LABS: BACTERIA,URINE FEW /HPF (NONE SEEN); SQUAMOUS EPITHELIAL CELL,UR FEW /HPF (NONE SEEN); WBC,URINE 20-50 /HPF (0-3)
--- NOTE | 2017-05-06 22:52 | NUR ---
Patient discharged to home in stable conditon. Written and verbal after care instructions given. Patient verbalizes understanding of instructions. Patient ambulated out of ER with steady gait, no acute signs of distress, VSS, all belongings taken.
[2017-05-06 22:53] VITALS: BP 112/77
== END 2017-05-06 22:54 | disposition home or self-care (01) ==
LOC: ER 22:20
DX: N39.0 Urinary tract infection, site not specified (principal); J45.909 Unspecified asthma, uncomplicated; K21.9 Gastro-esophageal reflux disease without esophagitis; F17.210 Nicotine dependence, cigarettes, uncomplicated; Z90.49 Acquired absence of other specified parts of digestive tract; Z88.8 Allergy status to other drugs, medicaments and biological substances; Z79.899 Other long term (current) drug therapy; Z79.1 Long term (current) use of non-steroidal anti-inflammatories (NSAID)
CPT/HCPCS: 84703; A4663

== ENCOUNTER 2017-05-22 15:19 | Emergency (ER) | payer MEDICAID ==
[~2017-05-22] VITALS: Ht 177.8 cm; Wt 81.6 kg
[~2017-05-22 15:19] MED LIST changes: -GABA-534 PO; -IBUP-1627 PO; +NAPR220C15 PO; -ONDA4TAB11 PO; -TOLT4CAP PO; -TRAM50TA2 PO; -TRINTELLIX PO
[2017-05-22] MEDS ORDERED: IPRATROPIUM BROMIDE 0.5 MG/2.5 ML NEBU NEB ONE (15:30)
[2017-05-22] MEDS ORDERED: predniSONE 20 MG TABLET PO ONE (15:30)
[2017-05-22] MEDS ORDERED: ALBUTEROL SULFATE 2.5 MG/3 ML NEBU NEB ONE (15:30)
[2017-05-22] MEDS ORDERED: ALBUTEROL SULFATE 2.5 MG/3 ML NEBU ONE (15:31)
[2017-05-22] MEDS ORDERED: IPRATROPIUM BROMIDE 0.5 MG/2.5 ML NEBU ONE (15:31)
[2017-05-22] MEDS ORDERED: predniSONE 50 MG TABLET ONE (15:39)
[2017-05-22] MEDS ORDERED: predniSONE 10 MG TABLET ONE (15:39)
[2017-05-22 16:03] VITALS: BP 112/74
--- NOTE | 2017-05-22 16:04 | NUR ---
Patient discharged to home in stable conditon. Written and verbal after care instructions given. Patient verbalizes understanding of instructions. Patient denies any shortness of breath or distress at this time. Pt left ER and walks in steady gait.
== END 2017-05-22 16:05 | disposition home or self-care (01) ==
LOC: ER 15:19
DX: J45.901 Unspecified asthma with (acute) exacerbation (principal); K21.9 Gastro-esophageal reflux disease without esophagitis; G89.29 Other chronic pain; M54.9 Dorsalgia, unspecified; Z90.49 Acquired absence of other specified parts of digestive tract; Z88.8 Allergy status to other drugs, medicaments and biological substances; Z79.1 Long term (current) use of non-steroidal anti-inflammatories (NSAID); Z79.899 Other long term (current) drug therapy
CPT/HCPCS: A4663; J3590; J7512

== ENCOUNTER 2017-08-25 16:05 | Emergency (ER) | payer MEDICAID ==
[~2017-08-25] VITALS: Ht 177.8 cm; Wt 81.6 kg
--- NOTE | 2017-08-25 18:54 | NUR ---
Patient just ambulated to ER room 3, pending MD evaluation
[2017-08-25] MEDS: ONDANSETRON ODT 4 MG TAB.RAPDIS SL ONE (19:12)
--- NOTE | 2017-08-25 19:12 | NUR ---
SBAR to nurse Osmin
[2017-08-25] MEDS ORDERED: KETOROLAC TROMETHAMINE 60 MG INJ IM ONE (19:16)
[2017-08-25] MEDS ORDERED: OXYCODONE/APAP 5-325 MG TABLET ONE (19:17)
[2017-08-25] MEDS ORDERED: ONDANSETRON ODT 4 MG TAB.RAPDIS ONE (19:17)
[2017-08-25] MEDS: OXYCODONE/APAP 5-325 MG TABLET PO ONE (19:20)
[2017-08-25] MEDS: KETOROLAC TROMETHAMINE 60 MG INJ IM ONE (19:20)
--- NOTE | 2017-08-25 19:23 | NUR ---
Patient discharged to home in stable conditon. Patient reported reduced back pain prior to discharge. Written and verbal after care instructions given. Patient verbalizes understanding of instructions. Patient able to ambulate unassisted with a steady gait. Patient left with all personal belongings.
[2017-08-25 19:28] VITALS: BP 122/78
== END 2017-08-25 19:23 | disposition home or self-care (01) ==
LOC: ER 16:06
DX: S39.012A Strain of muscle, fascia and tendon of lower back, initial encounter (principal); G89.29 Other chronic pain; M54.5 Low back pain; J45.909 Unspecified asthma, uncomplicated; F17.200 Nicotine dependence, unspecified, uncomplicated; Z88.8 Allergy status to other drugs, medicaments and biological substances; Z79.1 Long term (current) use of non-steroidal anti-inflammatories (NSAID); Z79.899 Other long term (current) drug therapy; Z71.6 Tobacco abuse counseling; X58.XXXA Exposure to other specified factors, initial encounter; Y93.89 Activity, other specified; Y92.89 Other specified places as the place of occurrence of the external cause; Y99.8 Other external cause status
CPT/HCPCS: A4663; J1885; Q0162

== ENCOUNTER 2017-09-19 22:29 | Emergency (ER) | payer MEDICAID ==
[~2017-09-19] VITALS: Ht 177.8 cm; Wt 81.6 kg
--- NOTE | 2017-09-19 23:08 | NUR ---
Patient denies SI/HI/AH/VH
[2017-09-20 00:54] LABS: BASOPHILS # (AUTO) 0.1 K/uL (0.0-8.0); BASOPHILS % (AUTO) 1.1 % (0.0-2.0); EOSINOPHILS % (AUTO) 0.4 % (0.0-7.0); HEMATOCRIT 45.1 % (31.2-41.9); HEMOGLOBIN 15.2 g/dL (10.9-14.3); LYMPHOCYTES # (AUTO) 3.7 K/uL (20.0-40.0); LYMPHOCYTES % (AUTO) 38.4 % (20.5-51.5); MEAN CORPUSCULAR HGB CONC 34 g/dL (32.3-35.6); MONOCYTES # (AUTO) 0.8 K/uL (2.0-10.0); MONOCYTES % (AUTO) 7.9 % (0.0-11.0); NEUTROPHILS # (AUTO) 5.1 K/uL (1.8-8.9); NEUTROPHILS % (AUTO) 52.2 % (38.5-71.5); PLATELET COUNT (AUTO) 204 K/uL (179-408); RED BLOOD CELL COUNT(AUTO) 5.07 MIL/uL (3.63-4.92); WHITE BLOOD COUNT (AUTO) 9.7 K/uL (3.8-11.8)
[2017-09-20 01:01] LABS: CARBON DIOXIDE 24 mmol/L (21-32); CHLORIDE 104 mmol/L (98-107); GLUCOSE 103 mg/dL (74-106); POTASSIUM 3.6 mmol/L (3.5-5.1); UREA NITROGEN, BLOOD 16 mg/dL (7-18)
[2017-09-20 01:04] LABS: ETHANOL < 3 MG/DL (0-0)
[2017-09-20 01:07] LABS: ALANINE AMINOTRANSFERASE 18 U/L (14-59); ALKALINE PHOSPHATASE 56 U/L (50-136); ASPARTATE AMINOTRANSFERASE 12 U/L (15-37); BILIRUBIN,DIRECT 0.1 mg/dL (0.0-0.2); BILIRUBIN,TOTAL 0.3 mg/dL (0.2-1.0); TOTAL PROTEIN, SERUM 7.3 g/dL (6.4-8.2)
[2017-09-20 01:13] LABS: *BILIRUBIN,URIN NEGATIVE (NEGATIVE); *BLOOD, URINE NEGATIVE (NEGATIVE); *CLARITY,URINE CLEAR (CLEAR); *COLOR,URINE YELLOW (YELLOW); *KETONES,URINE NEGATIVE (NEGATIVE); *PROTEIN,URINE NEGATIVE (NEGATIVE); *UROBILINOGEN,URINE 0.2 E.U./dl (NORMAL); LEUKOCYTE ESTERASE ,URINE NEGATIVE (NEGATIVE); NITRITE, URINE NEGATIVE (NEGATIVE); UGLUCOSE NEGATIVE (NEGATIVE)
[2017-09-20 01:13] LABS: ACETAMINOPHEN < 2.0 ug/mL (10-30)
[2017-09-20 01:16] LABS: *AMPHETAMINE, URINE NEGATIVE (NEGATIVE); *BARBITURATE, URINE NEGATIVE (NEGATIVE); *CANNABINOID, URINE POSITIVE (NEGATIVE); *COCCAINE, URINE NEGATIVE (NEGATIVE); *OPIATE, URINE NEGATIVE (NEGATIVE); *PHENCYCLIDINE SCREEN,URINE NEGATIVE (NEGATIVE)
[2017-09-20 01:19] LABS: BACTERIA,URINE NONE SEEN /HPF (NONE SEEN); RBC,URINE 0-3 /HPF (0-3); SQUAMOUS EPITHELIAL CELL,UR NONE SEEN /HPF (NONE SEEN); WBC,URINE 0-3 /HPF (0-3)
--- NOTE | 2017-09-20 02:15 | NUR ---
Art Capilla here to evaluate the pt.
--- NOTE | 2017-09-20 02:40 | NUR ---
Patient discharged to home in stable conditon. Written and verbal after care instructions given. Patient verbalizes understanding of instructions. Pt ambulated out of ER in steady gait. All belongings with pt. VSS. No acute distress noted.
[2017-09-20 02:42] VITALS: BP 124/81
== END 2017-09-20 02:42 | disposition home or self-care (01) ==
LOC: ER 22:31
DX: F32.9 Major depressive disorder, single episode, unspecified (principal); J45.909 Unspecified asthma, uncomplicated; K21.9 Gastro-esophageal reflux disease without esophagitis; G89.29 Other chronic pain; M54.9 Dorsalgia, unspecified; F17.200 Nicotine dependence, unspecified, uncomplicated; Z90.49 Acquired absence of other specified parts of digestive tract; Z88.8 Allergy status to other drugs, medicaments and biological substances
CPT/HCPCS: 36415; 80048; 80076; 80307; 81001; 84484; 84703; 85025; 93005; 99285; A4663; G0480 ×2; G0481; 70030-TC

== ENCOUNTER 2017-09-28 18:42 | Emergency (ER) | payer MEDICAID ==
[~2017-09-28] VITALS: Ht 177.8 cm; Wt 83.0 kg
--- NOTE | 2017-09-28 19:18 | NUR ---
Dr. Lassiter at bedside for MSE.
[2017-09-28 19:39] LABS: *BILIRUBIN,URIN NEGATIVE (NEGATIVE); *BLOOD, URINE Trace-lysed (NEGATIVE); *CLARITY,URINE SLIGHTLY CLOUDY (CLEAR); *COLOR,URINE YELLOW (YELLOW); *KETONES,URINE TRACE (NEGATIVE); *PROTEIN,URINE 1+ (NEGATIVE); LEUKOCYTE ESTERASE ,URINE 2+ (NEGATIVE); NITRITE, URINE NEGATIVE (NEGATIVE); UGLUCOSE NEGATIVE (NEGATIVE)
[2017-09-28 19:44] LABS: BACTERIA,URINE FEW /HPF (NONE SEEN); CALCIUM OXALATE CRYSTALS,UR RARE /HPF (NONE SEEN); SQUAMOUS EPITHELIAL CELL,UR FEW /HPF (NONE SEEN); WBC,URINE 20-50 /HPF (0-3)
[2017-09-28] MEDS ORDERED: PHENAZOPYRIDINE HCL 100 MG TABLET ONE (20:00)
[2017-09-28] MEDS ORDERED: NITROFURANTOIN/NITROFURAN MAC 100 MG CAPSULE PO ONE (20:00)
[2017-09-28] MEDS ORDERED: PHENAZOPYRIDINE HCL 100 MG TABLET PO ONE (20:00)
[2017-09-28] MEDS ORDERED: NITROFURANTOIN/NITROFURAN MAC 100 MG CAPSULE ONE (20:00)
--- NOTE | 2017-09-28 20:08 | NUR ---
Pt out of ER for CT.
--- NOTE | 2017-09-28 20:17 | NUR ---
Pt back to ER from CT.
--- NOTE | 2017-09-28 21:10 | NUR ---
Patient discharged to home in stable conditon. Written and verbal after care instructions given. Patient verbalizes understanding of instructions. Pt ambulated out of ER with steady gait, no acute signs of distress, VSS, all belongings taken.
[2017-09-28 21:20] VITALS: BP 115/71
== END 2017-09-28 21:20 | disposition home or self-care (01) ==
LOC: ER 18:43
DX: N39.0 Urinary tract infection, site not specified (principal); N20.0 Calculus of kidney; G89.29 Other chronic pain; Z71.6 Tobacco abuse counseling; J45.909 Unspecified asthma, uncomplicated; K21.9 Gastro-esophageal reflux disease without esophagitis; F17.200 Nicotine dependence, unspecified, uncomplicated; Z90.49 Acquired absence of other specified parts of digestive tract; Z88.8 Allergy status to other drugs, medicaments and biological substances
CPT/HCPCS: 74176; 81001; 99285; 99406; A4663

== ENCOUNTER 2017-11-05 16:19 | Emergency (ER) | payer MEDICAID ==
[~2017-11-05] VITALS: Ht 177.8 cm; Wt 82.6 kg
[~2017-11-05 16:19] MED LIST changes: -OXCA300T PO; +OXCA300T15 PO
--- NOTE | 2017-11-05 16:25 | NUR ---
PATIENT WAS MSE BY DR EPPERSON IN ROOM 05A.
[2017-11-05] MEDS ORDERED: KETOROLAC TROMETHAMINE 30 MG INJ IM ONE (17:00)
[2017-11-05] MEDS ORDERED: HYDROCODONE/APAP 10-325 MG TABLET PO ONE (17:00)
[2017-11-05] MEDS ORDERED: DIAZEPAM 2 MG TABLET PO ONE (17:00)
[2017-11-05] MEDS ORDERED: KETOROLAC TROMETHAMINE 30 MG INJ ONE (17:03)
[2017-11-05] MEDS ORDERED: HYDROCODONE/APAP 10-325 MG TABLET ONE (17:03)
[2017-11-05] MEDS ORDERED: DIAZEPAM 5 MG TABLET ONE (17:05)
[2017-11-05] MEDS ORDERED: ALBUTEROL SULFATE 2.5 MG/3 ML NEBU ONE (17:13)
[2017-11-05] MEDS ORDERED: ALBUTEROL SULFATE 2.5 MG/3 ML NEBU NEB ONE (17:15)
--- NOTE | 2017-11-05 18:15 | NUR ---
DR EPPERSON MADE PATIENT AWARE OF TEST RESULTS WILL BE DC HOME.
--- NOTE | 2017-11-05 18:34 | NUR ---
Patient discharged to home in stable conditon. Written and verbal after care instructions given. Patient verbalizes understanding of instructions.
[2017-11-05 18:36] VITALS: BP 110/76
== END 2017-11-05 18:38 | disposition home or self-care (01) ==
LOC: ER 16:21
DX: S39.012A Strain of muscle, fascia and tendon of lower back, initial encounter (principal); R06.2 Wheezing; J45.909 Unspecified asthma, uncomplicated; K21.9 Gastro-esophageal reflux disease without esophagitis; G89.29 Other chronic pain; M54.9 Dorsalgia, unspecified; F17.200 Nicotine dependence, unspecified, uncomplicated; Z88.8 Allergy status to other drugs, medicaments and biological substances; V43.52XA Car driver injured in collision with other type car in traffic accident, initial encounter; Y93.89 Activity, other specified; Y92.410 Unspecified street and highway as the place of occurrence of the external cause; Y99.8 Other external cause status
CPT/HCPCS: 71045; 72110; A4663; J1885

== ENCOUNTER 2017-12-03 15:23 | Emergency (ER) | payer MEDICAID ==
[~2017-12-03] VITALS: Ht 177.8 cm; Wt 81.6 kg
[2017-12-03] MEDS ORDERED: XANAX 2 MG (15:33)
--- NOTE | 2017-12-03 15:35 | NUR ---
at bedside to see and examine patient.
[2017-12-03 15:55] LABS: BASOPHILS # (AUTO) 0.1 K/uL (0.0-8.0); BASOPHILS % (AUTO) 0.9 % (0.0-2.0); EOSINOPHILS # (AUTO) 0.1 K/uL (0.0-0.7); EOSINOPHILS % (AUTO) 0.7 % (0.0-7.0); HEMATOCRIT 43.4 % (31.2-41.9); HEMOGLOBIN 14.5 g/dL (10.9-14.3); LYMPHOCYTES # (AUTO) 2.9 K/uL (20.0-40.0); LYMPHOCYTES % (AUTO) 34.2 % (20.5-51.5); MEAN CORPUSCULAR HEMOGLOBIN 29.8 uug (24.7-32.8); MEAN CORPUSCULAR HGB CONC 33 g/dL (32.3-35.6); MEAN CORPUSCULAR VOLUME 89.4 fL (75.5-95.3); MONOCYTES # (AUTO) 0.7 K/uL (2.0-10.0); MONOCYTES % (AUTO) 8.7 % (0.0-11.0); NEUTROPHILS # (AUTO) 4.7 K/uL (1.8-8.9); NEUTROPHILS % (AUTO) 55.5 % (38.5-71.5); PLATELET COUNT (AUTO) 183 K/uL (179-408); RED BLOOD CELL COUNT(AUTO) 4.86 MIL/uL (3.63-4.92); WHITE BLOOD COUNT (AUTO) 8.4 K/uL (3.8-11.8)
[2017-12-03 16:07] LABS: CARBON DIOXIDE 28 mmol/L (21-32); CHLORIDE 104 mmol/L (98-107); GLUCOSE 79 mg/dL (74-106); POTASSIUM 3.9 mmol/L (3.5-5.1); UREA NITROGEN, BLOOD 16 mg/dL (7-18)
[2017-12-03 16:12] LABS: ALANINE AMINOTRANSFERASE 15 U/L (14-59); ALKALINE PHOSPHATASE 53 U/L (50-136); ASPARTATE AMINOTRANSFERASE 9 U/L (15-37); BILIRUBIN,DIRECT 0.1 mg/dL (0.0-0.2); BILIRUBIN,TOTAL 0.4 mg/dL (0.2-1.0); LIPASE 106 U/L (73-393); TOTAL PROTEIN, SERUM 7.1 g/dL (6.4-8.2)
--- NOTE | 2017-12-03 16:37 | NUR ---
DCD instructions given to patient who verbalized understanding.
== END 2017-12-03 16:40 | disposition home or self-care (01) ==
LOC: ER 15:23
DX: N83.201 Unspecified ovarian cyst, right side (principal); R10.2 Pelvic and perineal pain; J45.909 Unspecified asthma, uncomplicated; K21.9 Gastro-esophageal reflux disease without esophagitis; G89.29 Other chronic pain; M54.9 Dorsalgia, unspecified; F17.200 Nicotine dependence, unspecified, uncomplicated; Z90.49 Acquired absence of other specified parts of digestive tract; Z88.8 Allergy status to other drugs, medicaments and biological substances
CPT/HCPCS: 36415; 76856; 83690; 85025; A4663

== ENCOUNTER 2018-01-03 19:13 | Emergency (ER) | payer MEDICAID ==
[~2018-01-03] VITALS: Ht 177.8 cm; Wt 84.8 kg
[~2018-01-03 19:13] MED LIST changes: +XANAX 2 MG
--- NOTE | 2018-01-03 19:41 | NUR ---
DR. EPPERSON AT BEDSIDE FOR MSE.
[2018-01-03] MEDS ORDERED: IV NORMAL SALINE 1000 ML BAG IV ONE (19:45)
[2018-01-03 19:55] LABS: *BILIRUBIN,URIN 1+ (NEGATIVE); *BLOOD, URINE NEGATIVE (NEGATIVE); *CLARITY,URINE CLEAR (CLEAR); *COLOR,URINE YELLOW (YELLOW); *KETONES,URINE TRACE (NEGATIVE); *PROTEIN,URINE NEGATIVE (NEGATIVE); *UROBILINOGEN,URINE 0.2 E.U./dl (NORMAL); LEUKOCYTE ESTERASE ,URINE NEGATIVE (NEGATIVE); NITRITE, URINE NEGATIVE (NEGATIVE); UGLUCOSE NEGATIVE (NEGATIVE)
[2018-01-03 19:56] LABS: *URINE HCG, QUAL NEGATIVE (NEGATIVE)
[2018-01-03] MEDS ORDERED: ONDANSETRON 4 MG/2 ML VIAL IV ONE ×2 (20:00→21:00)
[2018-01-03 20:01] LABS: BASOPHILS # (AUTO) 0.1 K/uL (0.0-8.0); BASOPHILS % (AUTO) 0.9 % (0.0-2.0); EOSINOPHILS # (AUTO) 0.1 K/uL (0.0-0.7); EOSINOPHILS % (AUTO) 1.2 % (0.0-7.0); HEMATOCRIT 41.5 % (31.2-41.9); HEMOGLOBIN 14.1 g/dL (10.9-14.3); LYMPHOCYTES # (AUTO) 2.7 K/uL (20.0-40.0); MEAN CORPUSCULAR HEMOGLOBIN 30.4 uug (24.7-32.8); MEAN CORPUSCULAR HGB CONC 34 g/dL (32.3-35.6); MEAN CORPUSCULAR VOLUME 89.5 fL (75.5-95.3); MONOCYTES # (AUTO) 0.7 K/uL (2.0-10.0); MONOCYTES % (AUTO) 10.8 % (0.0-11.0); NEUTROPHILS # (AUTO) 2.6 K/uL (1.8-8.9); NEUTROPHILS % (AUTO) 43.1 % (38.5-71.5); PLATELET COUNT (AUTO) 190 K/uL (179-408); RED BLOOD CELL COUNT(AUTO) 4.64 MIL/uL (3.63-4.92); WHITE BLOOD COUNT (AUTO) 6.1 K/uL (3.8-11.8)
[2018-01-03 20:04] LABS: CALCIUM OXALATE CRYSTALS,UR FEW /HPF (NONE SEEN); MUCUS,URINE MANY /LPF (0-FEW); SQUAMOUS EPITHELIAL CELL,UR FEW /HPF (NONE SEEN); WBC,URINE 0-3 /HPF (0-3)
[2018-01-03] MEDS ORDERED: ONDANSETRON 4 MG/2 ML VIAL ONE ×2 (20:05→20:57)
[2018-01-03 20:11] LABS: CREATININE 1.1 mg/dL (0.6-1.3); POTASSIUM 3.7 mmol/L (3.5-5.1)
[2018-01-03 20:17] LABS: BILIRUBIN,DIRECT 0.1 mg/dL (0.0-0.2); BILIRUBIN,TOTAL 0.3 mg/dL (0.2-1.0); TOTAL PROTEIN, SERUM 7.1 g/dL (6.4-8.2)
[2018-01-03 21:49] VITALS: BP 111/84
--- NOTE | 2018-01-03 21:49 | NUR ---
Patient discharged to home in stable conditon. Written and verbal after care instructions given. Patient verbalizes understanding of instructions. PATIENT LEFT WITH STABLE GAIT.
== END 2018-01-03 21:52 | disposition home or self-care (01) ==
LOC: ER 19:16
DX: R53.83 Other fatigue (principal); R42 Dizziness and giddiness; R31.9 Hematuria, unspecified; R11.0 Nausea; R19.7 Diarrhea, unspecified; J45.909 Unspecified asthma, uncomplicated; K21.9 Gastro-esophageal reflux disease without esophagitis; G89.29 Other chronic pain; M54.9 Dorsalgia, unspecified; F17.200 Nicotine dependence, unspecified, uncomplicated; Z90.49 Acquired absence of other specified parts of digestive tract; Z88.8 Allergy status to other drugs, medicaments and biological substances
CPT/HCPCS: 36415; 76770; 80048; 80076; 81001; 83690; 84484; 84703; 85025; 87077; 87086; 87186; 96361; 96374; 96376; 99284; J2405 ×2; 70030-TC; A4663; J7030

== ENCOUNTER 2018-03-22 21:34 | Emergency (ER) | payer MEDICAID ==
[~2018-03-22] VITALS: Ht 177.8 cm; Wt 81.6 kg
[2018-03-22] MEDS ORDERED: MONT10TA22 PO (21:49)
[2018-03-22] MEDS ORDERED: OMEP20CA11 PO (21:49)
[2018-03-22] MEDS ORDERED: OXYCODONE/APAP 5-325 MG TABLET ONE (22:23)
[2018-03-22] MEDS ORDERED: ONDANSETRON ODT 4 MG TAB.RAPDIS ONE (22:23)
[2018-03-22] MEDS ORDERED: predniSONE 10 MG TABLET ONE (22:24)
[2018-03-22] MEDS ORDERED: predniSONE 50 MG TABLET ONE (22:24)
[2018-03-22] MEDS ORDERED: IPRATROPIUM BROMIDE 0.5 MG/2.5 ML NEBU ONE (22:29)
[2018-03-22] MEDS ORDERED: ALBUTEROL SULFATE 2.5 MG/ 0.5 ML NEBU ONE (22:29)
[2018-03-22] MEDS ORDERED: OXYCODONE/APAP 5-325 MG TABLET PO ONE (22:30)
[2018-03-22] MEDS ORDERED: IPRATROPIUM BROMIDE 0.5 MG/2.5 ML NEBU NEB ONE (22:30)
[2018-03-22] MEDS ORDERED: predniSONE 10 MG TABLET PO ONE (22:30)
[2018-03-22] MEDS ORDERED: ALBUTEROL SULFATE 2.5 MG/3 ML NEBU NEB ONE ×2 (22:30→22:45)
[2018-03-22] MEDS ORDERED: ONDANSETRON ODT 4 MG TAB.RAPDIS SL ONE (22:30)
[2018-03-22] MEDS ORDERED: PSEUDOEPHEDRINE HCL 30 MG TABLET PO ONE (22:45)
[2018-03-22] MEDS ORDERED: PSEUDOEPHEDRINE HCL 30 MG TABLET ONE (22:45)
[2018-03-22 22:46] LABS: BASOPHILS % (AUTO) 0.8 % (0.0-2.0); EOSINOPHILS % (AUTO) 0.7 % (0.0-7.0); LYMPHOCYTES % (AUTO) 31.7 % (20.5-51.5); MEAN CORPUSCULAR HEMOGLOBIN 29.6 uug (24.7-32.8); MEAN CORPUSCULAR HGB CONC 34 g/dL (32.3-35.6); MEAN CORPUSCULAR VOLUME 88.5 fL (75.5-95.3); MONOCYTES # (AUTO) 0.6 K/uL (2.0-10.0); MONOCYTES % (AUTO) 10.2 % (0.0-11.0); NEUTROPHILS # (AUTO) 3.5 K/uL (1.8-8.9); NEUTROPHILS % (AUTO) 56.6 % (38.5-71.5); PLATELET COUNT (AUTO) 172 K/uL (179-408); RED BLOOD CELL COUNT(AUTO) 4.75 MIL/uL (3.63-4.92); WHITE BLOOD COUNT (AUTO) 6.2 K/uL (3.8-11.8)
[2018-03-22 22:48] LABS: CREATININE 1.1 mg/dL (0.6-1.3); POTASSIUM 3.7 mmol/L (3.5-5.1)
[2018-03-22] MEDS ORDERED: ALBUTEROL SULFATE 2.5 MG/3 ML NEBU ONE (22:49)
[2018-03-22 23:01] LABS: BILIRUBIN,DIRECT 0.1 mg/dL (0.0-0.2); BILIRUBIN,TOTAL 0.2 mg/dL (0.2-1.0)
--- NOTE | 2018-03-22 23:48 | NUR ---
Patient discharged to home in stable conditon. Written and verbal after care instructions given. Patient verbalizes understanding of instructions.
== END 2018-03-22 23:52 | disposition home or self-care (01) ==
LOC: ER 21:34
DX: J45.909 Unspecified asthma, uncomplicated (principal); J98.01 Acute bronchospasm; J32.9 Chronic sinusitis, unspecified; Z71.6 Tobacco abuse counseling; K21.9 Gastro-esophageal reflux disease without esophagitis; G89.29 Other chronic pain; M54.9 Dorsalgia, unspecified; F17.290 Nicotine dependence, other tobacco product, uncomplicated; Z88.8 Allergy status to other drugs, medicaments and biological substances; Z90.49 Acquired absence of other specified parts of digestive tract; Z79.899 Other long term (current) drug therapy
CPT/HCPCS: 36415; 71045; 80048; 80076; 83880; 84484; 85025; 93005; 94640 ×2; 99284; 99406; J7512 ×2; 70030-TC; A4663; J3590; Q0162

== ENCOUNTER 2018-03-30 22:19 | Emergency (ER) | payer MEDICAID ==
[~2018-03-30] VITALS: Ht 177.8 cm; Wt 81.6 kg
[~2018-03-30 22:19] MED LIST changes: -ALPR2TAB7 PO; +MONT10TA22 PO; -NAPR220C15 PO; +OMEP20CA10 PO; -POTA10TA21 PO
--- NOTE | 2018-03-30 22:30 | NUR ---
Pt ambulates to ER with c/o chronic cough, shortness of breath, chest discomfort when breathing in since 1999 today. Has hx of asthma. Pt is a smoker. Vital signs stable. SA02 99% room air. NSR on manager cardiac. Safety measurse implemented.
[2018-03-30] MEDS ORDERED: ALBUTEROL SUL 90 MCG (22:32)
[2018-03-30] MEDS ORDERED: ALBUTEROL SUL 2.5 MG/3 ML SOLN (22:32)
[2018-03-30] MEDS ORDERED: OXYCODONE-ACETAMINOPHEN 5-325 (22:32)
[2018-03-30] MEDS ORDERED: METHOCARBAMOL 500 MG TABLET (22:32)
--- NOTE | 2018-03-30 22:51 | NUR ---
Dr. Herron, , at bedside to evaluate pt.
[2018-03-30] MEDS ORDERED: ALBUTEROL SULFATE 1.25 MG/3 ML NEBU NEB ONE (23:15)
[2018-03-30] MEDS ORDERED: ALBUTEROL SULFATE 2.5 MG/3 ML NEBU ONE (23:26)
--- NOTE | 2018-03-31 00:54 | NUR ---
Pt received continuous breathing treatment, states she feels much better.
--- NOTE | 2018-03-31 01:06 | NUR ---
Patient discharged to home in stable conditon. Written and verbal after care instructions given. Patient verbalizes understanding of instructions.
[2018-03-31 01:36] VITALS: BP 112/72
== END 2018-03-31 01:37 | disposition home or self-care (01) ==
LOC: ER 22:20
DX: J45.909 Unspecified asthma, uncomplicated (principal); K21.9 Gastro-esophageal reflux disease without esophagitis; G89.29 Other chronic pain; M54.9 Dorsalgia, unspecified; F17.200 Nicotine dependence, unspecified, uncomplicated; Z88.8 Allergy status to other drugs, medicaments and biological substances; Z90.49 Acquired absence of other specified parts of digestive tract; Z79.891 Long term (current) use of opiate analgesic; Z79.899 Other long term (current) drug therapy
CPT/HCPCS: 71045; 93005; A4663

== ENCOUNTER 2018-04-02 22:29 | Emergency (ER) | payer MEDICAID ==
[~2018-04-02] VITALS: Ht 177.8 cm; Wt 81.6 kg
[~2018-04-02 22:29] MED LIST changes: +ALBUTEROL SUL 2.5 MG/3 ML SOLN; +ALBUTEROL SUL 90 MCG; +METHOCARBAMOL 500 MG TABLET; +OXYCODONE-ACETAMINOPHEN 5-325
--- NOTE | 2018-04-02 23:19 | NUR ---
Dr. Anderson LUJAN MD at bedside to evaluate pt.
--- NOTE | 2018-04-02 23:48 | NUR ---
Patient discharged to home in stable conditon. Written and verbal after care instructions given. Patient verbalizes understanding of instructions.
[2018-04-02 23:49] VITALS: BP 118/74
== END 2018-04-02 23:49 | disposition home or self-care (01) ==
LOC: ER 22:31
DX: J02.8 Acute pharyngitis due to other specified organisms (principal); B97.89 Other viral agents as the cause of diseases classified elsewhere; J45.909 Unspecified asthma, uncomplicated; K21.9 Gastro-esophageal reflux disease without esophagitis; G89.29 Other chronic pain; M54.9 Dorsalgia, unspecified; F17.200 Nicotine dependence, unspecified, uncomplicated; Z90.49 Acquired absence of other specified parts of digestive tract; Z79.891 Long term (current) use of opiate analgesic; Z79.899 Other long term (current) drug therapy
CPT/HCPCS: A4663

== ENCOUNTER 2018-04-18 10:33 | Emergency (ER) | payer MEDICAID ==
[~2018-04-18] VITALS: Ht 177.8 cm; Wt 81.6 kg
--- NOTE | 2018-04-18 11:04 | NUR ---
pt is in room #2b. dr crum evaluated the pt.
[2018-04-18] MEDS ORDERED: IV NORMAL SALINE 1000 ML BAG IV ONE (11:15)
[2018-04-18] MEDS ORDERED: DIAZEPAM 2 MG TABLET PO ONE (11:15)
[2018-04-18] MEDS ORDERED: ONDANSETRON 4 MG/2 ML VIAL IV ONE (11:15)
[2018-04-18] MEDS ORDERED: MECLIZINE HCL 25 MG TABLET PO ONE (11:15)
[2018-04-18] MEDS ORDERED: ONDANSETRON 4 MG/2 ML VIAL ONE (11:37)
[2018-04-18] MEDS ORDERED: DIAZEPAM 5 MG TABLET ONE (11:37)
[2018-04-18] MEDS ORDERED: MECLIZINE HCL 25 MG TABLET ONE (11:38)
[2018-04-18 11:39] LABS: BASOPHILS # (AUTO) 0.1 K/uL (0.0-8.0); EOSINOPHILS % (AUTO) 0.2 % (0.0-7.0); HEMATOCRIT 44.5 % (31.2-41.9); HEMOGLOBIN 14.8 g/dL (10.9-14.3); LYMPHOCYTES # (AUTO) 1.5 K/uL (20.0-40.0); LYMPHOCYTES % (AUTO) 16.8 % (20.5-51.5); MEAN CORPUSCULAR HEMOGLOBIN 29.2 uug (24.7-32.8); MEAN CORPUSCULAR HGB CONC 33 g/dL (32.3-35.6); MEAN CORPUSCULAR VOLUME 87.8 fL (75.5-95.3); MONOCYTES # (AUTO) 0.6 K/uL (2.0-10.0); MONOCYTES % (AUTO) 7.4 % (0.0-11.0); NEUTROPHILS # (AUTO) 6.6 K/uL (1.8-8.9); NEUTROPHILS % (AUTO) 74.6 % (38.5-71.5); PLATELET COUNT (AUTO) 188 K/uL (179-408); RED BLOOD CELL COUNT(AUTO) 5.07 MIL/uL (3.63-4.92); WHITE BLOOD COUNT (AUTO) 8.8 K/uL (3.8-11.8)
[2018-04-18 11:48] LABS: CREATININE 0.9 mg/dL (0.6-1.3); POTASSIUM 3.6 mmol/L (3.5-5.1)
[2018-04-18 11:54] LABS: BILIRUBIN,DIRECT 0.1 mg/dL (0.0-0.2); BILIRUBIN,TOTAL 0.5 mg/dL (0.2-1.0); TOTAL PROTEIN, SERUM 7.2 g/dL (6.4-8.2)
[2018-04-18 11:55] LABS: ETHANOL < 3 MG/DL (0-0)
--- NOTE | 2018-04-18 13:26 | NUR ---
PT WAS D/C'D TO HOME. D/C INSTRUCTIONS GIVEN TO THE PT.
[2018-04-18 13:31] VITALS: BP 131/74
== END 2018-04-18 13:32 | disposition home or self-care (01) ==
LOC: ER 10:33
DX: R42 Dizziness and giddiness (principal); R11.2 Nausea with vomiting, unspecified; H93.19 Tinnitus, unspecified ear; R05 Cough; J45.909 Unspecified asthma, uncomplicated; F17.200 Nicotine dependence, unspecified, uncomplicated; Z90.49 Acquired absence of other specified parts of digestive tract; Z88.8 Allergy status to other drugs, medicaments and biological substances; Z79.899 Other long term (current) drug therapy
CPT/HCPCS: 36415; 80048; 80076; 84702; 85025; 93005; 96361; 96374; 99284; G0480; J2405; A4663; J8597

== ENCOUNTER 2018-04-21 20:13 | Emergency (ER) | payer MEDICAID ==
[~2018-04-21] VITALS: Ht 177.8 cm; Wt 81.6 kg
--- NOTE | 2018-04-21 20:51 | NUR ---
Patient discharged to home in stable conditon. Written and verbal after care instructions given. Patient verbalizes understanding of instructions. Ambulated from ER with stable gait. All belongings with patient.
[2018-04-21 20:52] VITALS: BP 111/70
== END 2018-04-21 20:53 | disposition home or self-care (01) ==
LOC: ER 20:13
DX: H00.011 Hordeolum externum right upper eyelid (principal); J45.909 Unspecified asthma, uncomplicated; K21.9 Gastro-esophageal reflux disease without esophagitis; G89.29 Other chronic pain; M54.9 Dorsalgia, unspecified; F17.200 Nicotine dependence, unspecified, uncomplicated; Z88.8 Allergy status to other drugs, medicaments and biological substances; Z90.49 Acquired absence of other specified parts of digestive tract; Z79.899 Other long term (current) drug therapy; Z79.891 Long term (current) use of opiate analgesic
CPT/HCPCS: A4663

== ENCOUNTER 2018-04-26 18:13 | Emergency (ER) | payer MEDICAID ==
[~2018-04-26] VITALS: Ht 177.8 cm; Wt 81.6 kg
[~2018-04-26 18:13] MED LIST changes: -OMEP20CA10 PO; +OMEP20CA11 PO
[2018-04-26] MEDS ORDERED: KETOROLAC TROMETHAMINE 30 MG INJ ONE ×2 (18:58→19:03)
[2018-04-26] MEDS ORDERED: LORAZEPAM 2 MG/1 ML VIAL ONE ×2 (18:58→19:04)
[2018-04-26] MEDS ORDERED: ONDANSETRON IV *ER 4 MG/2 ML VIAL IV ONE (19:00)
[2018-04-26] MEDS ORDERED: LORAZEPAM 2 MG/1 ML VIAL IV ONE (19:00)
[2018-04-26] MEDS ORDERED: KETOROLAC TROMETHAMINE 30 MG INJ IVP ONE (19:00)
[2018-04-26] MEDS ORDERED: ONDANSETRON 4 MG/2 ML VIAL ONE ×2 (19:04→21:23)
--- NOTE | 2018-04-26 19:11 | NUR ---
PT IS IN ROOM #2B, DR JUNIOR EVALUATED THE PT.
--- NOTE | 2018-04-26 19:24 | NUR ---
Recieved report from Yan HEWITT, assumed care of pt.,
--- NOTE | 2018-04-26 19:24 | NUR ---
Phleb. tech. at bedside for blood draw,
[2018-04-26 19:40] LABS: BASOPHILS % (AUTO) 0.7 % (0.0-2.0); EOSINOPHILS # (AUTO) 0.1 K/uL (0.0-0.7); EOSINOPHILS % (AUTO) 0.9 % (0.0-7.0); HEMATOCRIT 38.9 % (31.2-41.9); HEMOGLOBIN 12.9 g/dL (10.9-14.3); LYMPHOCYTES # (AUTO) 2.5 K/uL (20.0-40.0); LYMPHOCYTES % (AUTO) 43.2 % (20.5-51.5); MEAN CORPUSCULAR HEMOGLOBIN 29.3 uug (24.7-32.8); MEAN CORPUSCULAR HGB CONC 33 g/dL (32.3-35.6); MEAN CORPUSCULAR VOLUME 88.5 fL (75.5-95.3); MONOCYTES # (AUTO) 0.5 K/uL (2.0-10.0); MONOCYTES % (AUTO) 9.1 % (0.0-11.0); NEUTROPHILS # (AUTO) 2.7 K/uL (1.8-8.9); NEUTROPHILS % (AUTO) 46.1 % (38.5-71.5); PLATELET COUNT (AUTO) 176 K/uL (179-408); WHITE BLOOD COUNT (AUTO) 5.8 K/uL (3.8-11.8)
[2018-04-26 19:48] LABS: BILIRUBIN,DIRECT 0.1 mg/dL (0.0-0.2); BILIRUBIN,TOTAL 0.2 mg/dL (0.2-1.0); CREATININE 1.1 mg/dL (0.6-1.3); POTASSIUM 3.7 mmol/L (3.5-5.1); TOTAL PROTEIN, SERUM 6.4 g/dL (6.4-8.2)
[2018-04-26] MEDS ORDERED: OXYCODONE/APAP 5-325 MG TABLET PO ONE (20:00)
[2018-04-26] MEDS ORDERED: OXYCODONE/APAP 5-325 MG TABLET ONE (20:15)
--- NOTE | 2018-04-26 20:15 | NUR ---
coroner forensic technician. at bedside,
--- NOTE | 2018-04-26 20:21 | NUR ---
US tech. at bedside
--- NOTE | 2018-04-26 20:33 | NUR ---
Family at bedside, IV patent - no s/s infiltration/phlebitis,
--- NOTE | 2018-04-26 21:32 | NUR ---
Patient discharged to home in stable conditon. Written and verbal after care instructions given. Patient verbalizes understanding of instructions. Pt. d/c w/ prescription per MD order, all belongings w/ pt., ID band/IV removed, ambulated off unit w/ steady gait accompanied by female monument stonecutter, instructed not to drive, NAD,
== END 2018-04-26 21:34 | disposition home or self-care (01) ==
LOC: ER 18:14
DX: G89.29 Other chronic pain (principal); R51 Headache; M54.5 Low back pain; R07.89 Other chest pain; R10.84 Generalized abdominal pain; R11.0 Nausea; F41.9 Anxiety disorder, unspecified; F17.290 Nicotine dependence, other tobacco product, uncomplicated; J45.909 Unspecified asthma, uncomplicated; K21.9 Gastro-esophageal reflux disease without esophagitis; Z71.6 Tobacco abuse counseling; Z88.8 Allergy status to other drugs, medicaments and biological substances; Z90.49 Acquired absence of other specified parts of digestive tract; Z79.891 Long term (current) use of opiate analgesic; Z79.899 Other long term (current) drug therapy
CPT/HCPCS: 36415; 71045; 76856; 80048; 80076; 83690; 84484; 84702; 85025; 93005; 96374; 96375; 99284; 99406; J1885; J2060; J2405; 70030-TC; A4663

== ENCOUNTER 2018-04-29 12:46 | Emergency (ER) | payer MEDICAID ==
[~2018-04-29] VITALS: Ht 177.8 cm; Wt 81.6 kg
[~2018-04-29 12:46] MED LIST changes: +OMEP20CA10 PO; -OMEP20CA11 PO
--- NOTE | 2018-04-29 13:27 | NUR ---
TAI MOONEY AT BEDSIDE FOR MSE.
--- NOTE | 2018-04-29 13:30 | NUR ---
PT A/OX4, PRESENTS TO THE ER C/O HEADACHE X 7 DAYS. PT WAS SEEN HERE ON 04/26/18 W/ SIMILAR COMPLAINT AND D/C W/ IMPROVED SYMPTOMS. PT REPORTS THE HEADACHE RETURNED W/ RINGING SOUND IN THE EARS, R ARM TINGLING SENSATION, NUMBNESS AROUND THE MOUTH, NAUSEA AND DIZZINESS. PT'S SPEECH IS CLEAR, SMILE EQUAL, NO ARM DRIFT NOTED, NO HEMILATERAL WEAKNESS. VSS. PT DENIES C/P, SOB, VOMITING/DIARRHEA.
[2018-04-29] MEDS ORDERED: KETOROLAC TROMETHAMINE 30 MG INJ IVP ONE (13:45)
[2018-04-29] MEDS ORDERED: METOCLOPRAMIDE HCL 10 MG/2 ML VIAL IV ONE (13:45)
[2018-04-29] MEDS ORDERED: diphenhydrAMINE 50 MG/1 ML VIAL IV ONE (13:45)
--- NOTE | 2018-04-29 13:54 | NUR ---
PT TAKEN TO RADIOLOGY FOR CT SCAN.
[2018-04-29] MEDS ORDERED: KETOROLAC TROMETHAMINE 30 MG INJ ONE (13:55)
[2018-04-29] MEDS ORDERED: METOCLOPRAMIDE HCL 10 MG/2 ML VIAL ONE (13:55)
[2018-04-29] MEDS ORDERED: diphenhydrAMINE 50 MG/1 ML VIAL ONE (13:55)
--- NOTE | 2018-04-29 14:03 | NUR ---
PT BACK IN ER FROM RADIOLOGY.
--- NOTE | 2018-04-29 15:11 | NUR ---
DR ASHER SPOKE WITH PATIENT MADE HER AWARE OF TEST RESULTS WILL DC HOME.
[2018-04-29 15:12] VITALS: BP 108/79
== END 2018-04-29 15:14 | disposition home or self-care (01) ==
LOC: ER 12:48
DX: G44.209 Tension-type headache, unspecified, not intractable (principal); J45.909 Unspecified asthma, uncomplicated; K21.9 Gastro-esophageal reflux disease without esophagitis; F17.200 Nicotine dependence, unspecified, uncomplicated; Z88.8 Allergy status to other drugs, medicaments and biological substances; Z79.899 Other long term (current) drug therapy
CPT/HCPCS: 70450; 96374; 96375; 99284; J1200; J1885; J2765; A4663

== ENCOUNTER 2018-05-01 20:55 | Emergency (ER) | payer MEDICAID ==
[~2018-05-01] VITALS: Ht 177.8 cm; Wt 81.6 kg
--- NOTE | 2018-05-01 21:20 | NUR ---
Patient ambulated with stable gait. AAOx4. Speech is clear, speaks in complete sentences. Patient came in with c/o having an allergic reaction to taking medication. Respiratory even and unlabored. No cardiovascular distress noted, all pulses palpable. No N/V/D. Patient in bed at lowest position, side rails upx2, call light within reach. Fall precautions implemented per protocol.
[2018-05-01] MEDS ORDERED: LORAZEPAM 2 MG/1 ML VIAL IV ONE (21:30)
[2018-05-01] MEDS ORDERED: PROCHLORPERAZINE EDISYLATE 10 MG/2 ML VIAL IV ONE (21:30)
[2018-05-01 21:53] LABS: BASOPHILS # (AUTO) 0.1 K/uL (0.0-8.0); BASOPHILS % (AUTO) 0.8 % (0.0-2.0); EOSINOPHILS % (AUTO) 0.7 % (0.0-7.0); HEMATOCRIT 38.8 % (31.2-41.9); LYMPHOCYTES # (AUTO) 2.9 K/uL (20.0-40.0); LYMPHOCYTES % (AUTO) 43.4 % (20.5-51.5); MEAN CORPUSCULAR HEMOGLOBIN 29.2 uug (24.7-32.8); MEAN CORPUSCULAR HGB CONC 33 g/dL (32.3-35.6); MEAN CORPUSCULAR VOLUME 87.6 fL (75.5-95.3); MONOCYTES # (AUTO) 0.6 K/uL (2.0-10.0); MONOCYTES % (AUTO) 8.7 % (0.0-11.0); NEUTROPHILS # (AUTO) 3.2 K/uL (1.8-8.9); NEUTROPHILS % (AUTO) 46.4 % (38.5-71.5); PLATELET COUNT (AUTO) 207 K/uL (179-408); RED BLOOD CELL COUNT(AUTO) 4.43 MIL/uL (3.63-4.92); WHITE BLOOD COUNT (AUTO) 6.8 K/uL (3.8-11.8)
[2018-05-01] MEDS ORDERED: PROCHLORPERAZINE EDISYLATE 10 MG/2 ML VIAL ONE (21:53)
[2018-05-01] MEDS ORDERED: LORAZEPAM 2 MG/1 ML VIAL ONE (21:54)
[2018-05-01 21:56] LABS: POTASSIUM 3.7 mmol/L (3.5-5.1)
[2018-05-01 22:00] LABS: *URINE HCG, QUAL NEGATIVE (NEGATIVE)
[2018-05-01] MEDS ORDERED: KETOROLAC TROMETHAMINE 30 MG INJ IVP ONE (22:45)
[2018-05-01] MEDS ORDERED: KETOROLAC TROMETHAMINE 15 MG INJ ONE ×2 (22:48→23:03)
--- NOTE | 2018-05-01 22:50 | NUR ---
Patient discharged to home in stable conditon. Written and verbal after care instructions given. Patient verbalizes understanding of instructions. Patient ambulated with stable gait.
[2018-05-01 23:17] VITALS: BP 110/80
== END 2018-05-01 23:18 | disposition home or self-care (01) ==
LOC: ER 21:06
DX: R51 Headache (principal); R42 Dizziness and giddiness; R11.10 Vomiting, unspecified; R19.7 Diarrhea, unspecified; J45.909 Unspecified asthma, uncomplicated; K21.9 Gastro-esophageal reflux disease without esophagitis; F17.290 Nicotine dependence, other tobacco product, uncomplicated; Z88.8 Allergy status to other drugs, medicaments and biological substances; Z79.891 Long term (current) use of opiate analgesic; Z79.899 Other long term (current) drug therapy
CPT/HCPCS: 36415; 80048; 84703; 85025; 93005; 96374; 96375; 99284; 99406; J0780; J1885 ×2; J2060; A4663

== ENCOUNTER 2018-05-27 12:32 | Emergency (ER) | payer MEDICAID ==
[~2018-05-27] VITALS: Ht 177.8 cm; Wt 81.6 kg
[2018-05-27 13:08] LABS: *BILIRUBIN,URIN NEGATIVE (NEGATIVE); *BLOOD, URINE 3+ (NEGATIVE); *CLARITY,URINE TURBID (CLEAR); *COLOR,URINE DARK YELLOW (YELLOW); *KETONES,URINE NEGATIVE (NEGATIVE); *UROBILINOGEN,URINE 0.2 E.U./dl (NORMAL); LEUKOCYTE ESTERASE ,URINE 2+ (NEGATIVE); NITRITE, URINE NEGATIVE (NEGATIVE); PH,URINE 5.5 (5.0-8.0); UGLUCOSE NEGATIVE (NEGATIVE)
[2018-05-27 13:12] LABS: *URINE HCG, QUAL NEGATIVE (NEGATIVE)
[2018-05-27 13:14] LABS: MUCUS,URINE MODERATE /LPF (0-FEW); SQUAMOUS EPITHELIAL CELL,UR FEW /HPF (NONE SEEN)
[2018-05-27 13:15] LABS: BACTERIA,URINE FEW /HPF (NONE SEEN); RBC,URINE TNTC /HPF (0-3); WBC,URINE TNTC /HPF (0-3)
[2018-05-27] MEDS ORDERED: SULFAMETH/TRIMETH 800/160 MG TABLET ONE (13:20)
[2018-05-27] MEDS: SULFAMETH/TRIMETH 800/160 MG TABLET PO ONE (13:20)
--- NOTE | 2018-05-27 13:20 | NUR ---
Patient discharged to home in stable conditon. Written and verbal after care instructions given. Patient verbalizes understanding of instructions.
== END 2018-05-27 13:21 | disposition home or self-care (01) ==
LOC: ER 12:32
DX: N39.0 Urinary tract infection, site not specified (principal); J45.909 Unspecified asthma, uncomplicated; K21.9 Gastro-esophageal reflux disease without esophagitis; F17.200 Nicotine dependence, unspecified, uncomplicated; Z79.899 Other long term (current) drug therapy
CPT/HCPCS: 84703; A4663

== ENCOUNTER 2018-06-23 23:29 | Emergency (ER) | payer MEDICAID ==
[~2018-06-23] VITALS: Ht 177.8 cm; Wt 81.6 kg
[2018-06-23] MEDS ORDERED: LURA40TA PO (23:48)
[2018-06-24 00:19] LABS: *BILIRUBIN,URIN NEGATIVE (NEGATIVE); *BLOOD, URINE 2+ (NEGATIVE); *CLARITY,URINE CLOUDY (CLEAR); *COLOR,URINE YELLOW (YELLOW); *KETONES,URINE NEGATIVE (NEGATIVE); *UROBILINOGEN,URINE 0.2 E.U./dl (NORMAL); LEUKOCYTE ESTERASE ,URINE 2+ (NEGATIVE); NITRITE, URINE NEGATIVE (NEGATIVE); PH,URINE 5.5 (5.0-8.0); UGLUCOSE NEGATIVE (NEGATIVE)
[2018-06-24 00:22] LABS: *URINE HCG, QUAL NEGATIVE (NEGATIVE)
[2018-06-24 00:25] LABS: BACTERIA,URINE MODERATE /HPF (NONE SEEN); SQUAMOUS EPITHELIAL CELL,UR FEW /HPF (NONE SEEN); WBC,URINE TNTC /HPF (0-3)
[2018-06-24] MEDS ORDERED: NITROFURANTOIN/NITROFURAN MAC 100 MG CAPSULE ONE (00:37)
[2018-06-24] MEDS ORDERED: PHENAZOPYRIDINE HCL 100 MG TABLET ONE (00:37)
--- NOTE | 2018-06-24 00:43 | NUR ---
Patient discharged to home in stable conditon. Written and verbal after care instructions given. Patient verbalizes understanding of instructions. WALKED OUT OF ER WITH NO DISTRESS NOTED
[2018-06-24 00:44] VITALS: BP 110/77
[2018-06-24] MEDS ORDERED: PHENAZOPYRIDINE HCL 100 MG TABLET PO ONE (00:45)
[2018-06-24] MEDS ORDERED: NITROFURANTOIN/NITROFURAN MAC 100 MG CAPSULE PO ONE (00:45)
--- NOTE | 2018-06-26 12:20 | NUR ---
URINE CULTURE POSITIVE. PATIENT HAD BEEN PRESCRIBED MACROBID, WHICH THE ORGANISM IS SENSITIVE TOO.
== END 2018-06-24 00:46 | disposition home or self-care (01) ==
LOC: ER 23:29
DX: N39.0 Urinary tract infection, site not specified (principal); J45.909 Unspecified asthma, uncomplicated; K21.9 Gastro-esophageal reflux disease without esophagitis; F17.200 Nicotine dependence, unspecified, uncomplicated; Z88.8 Allergy status to other drugs, medicaments and biological substances; Z79.899 Other long term (current) drug therapy
CPT/HCPCS: 84703; 87077; 87086; A4663

== ENCOUNTER 2018-09-30 21:35 | Emergency (ER) | payer MEDICAID ==
[~2018-09-30] VITALS: Ht 177.8 cm; Wt 80.3 kg
[~2018-09-30 21:35] MED LIST changes: +LURA40TA PO; -OMEP20CA10 PO; +OMEP20CA11 PO
[2018-09-30 22:09] LABS: *BILIRUBIN,URIN NEGATIVE (NEGATIVE); *CLARITY,URINE CLEAR (CLEAR); *COLOR,URINE YELLOW (YELLOW); *KETONES,URINE NEGATIVE (NEGATIVE); *UROBILINOGEN,URINE 0.2 E.U./dl (NORMAL); LEUKOCYTE ESTERASE ,URINE NEGATIVE (NEGATIVE); NITRITE, URINE NEGATIVE (NEGATIVE); PH,URINE 5.5 (5.0-8.0); UGLUCOSE NEGATIVE (NEGATIVE)
[2018-09-30 22:10] LABS: *BLOOD, URINE TRACE (NEGATIVE)
[2018-09-30 22:13] LABS: *URINE HCG, QUAL NEGATIVE (NEGATIVE)
[2018-09-30] MEDS ORDERED: KETOROLAC TROMETHAMINE 15 MG INJ IV ONE (22:30)
[2018-09-30 22:35] LABS: RBC,URINE 0-3 /HPF (0-3)
[2018-09-30 22:36] LABS: BACTERIA,URINE NONE SEEN /HPF (NONE SEEN); CALCIUM OXALATE CRYSTALS,UR MANY /HPF (NONE SEEN); MUCUS,URINE MANY /LPF (0-FEW); SQUAMOUS EPITHELIAL CELL,UR FEW /HPF (NONE SEEN)
[2018-09-30] MEDS ORDERED: KETOROLAC TROMETHAMINE 15 MG INJ ONE (22:36)
[2018-09-30 22:51] LABS: BASOPHILS # (AUTO) 0.1 K/uL (0.0-8.0); BASOPHILS % (AUTO) 0.9 % (0.0-2.0); EOSINOPHILS # (AUTO) 0.1 K/uL (0.0-0.7); EOSINOPHILS % (AUTO) 0.7 % (0.0-7.0); HEMATOCRIT 40.7 % (31.2-41.9); HEMOGLOBIN 13.7 g/dL (10.9-14.3); LYMPHOCYTES % (AUTO) 38.1 % (20.5-51.5); MEAN CORPUSCULAR HEMOGLOBIN 29.7 uug (24.7-32.8); MEAN CORPUSCULAR HGB CONC 34 g/dL (32.3-35.6); MEAN CORPUSCULAR VOLUME 88.1 fL (75.5-95.3); MONOCYTES # (AUTO) 0.7 K/uL (2.0-10.0); MONOCYTES % (AUTO) 8.6 % (0.0-11.0); NEUTROPHILS % (AUTO) 51.7 % (38.5-71.5); PLATELET COUNT (AUTO) 171 K/uL (179-408); RED BLOOD CELL COUNT(AUTO) 4.62 MIL/uL (3.63-4.92); WHITE BLOOD COUNT (AUTO) 7.8 K/uL (3.8-11.8)
[2018-09-30 22:54] LABS: BILIRUBIN,DIRECT 0.1 mg/dL (0.0-0.2); BILIRUBIN,TOTAL 0.3 mg/dL (0.2-1.0); CREATININE 1.2 mg/dL (0.6-1.3); POTASSIUM 3.4 mmol/L (3.5-5.1)
--- NOTE | 2018-09-30 23:06 | NUR ---
Patient back in room from CT
--- NOTE | 2018-09-30 23:32 | NUR ---
Female rag cutting machine tender accompanied female patient for ultrasound.
--- NOTE | 2018-10-01 00:27 | NUR ---
Patient discharged to home in stable conditon. Written and verbal after care instructions given. Patient verbalizes understanding of instructions.
--- NOTE | 2018-10-01 00:27 | NUR ---
IV removed. Catheter intact and site benign. Pressure and 4x4 gauze applied to site. No bleeding noted.
[2018-10-01 00:28] VITALS: BP 118/72
== END 2018-10-01 00:29 | disposition home or self-care (01) ==
LOC: ER 21:40
DX: R10.11 Right upper quadrant pain (principal); J45.909 Unspecified asthma, uncomplicated; K21.9 Gastro-esophageal reflux disease without esophagitis; F32.9 Major depressive disorder, single episode, unspecified; F20.9 Schizophrenia, unspecified; G89.29 Other chronic pain; M54.9 Dorsalgia, unspecified; F17.200 Nicotine dependence, unspecified, uncomplicated; Z88.8 Allergy status to other drugs, medicaments and biological substances; Z79.899 Other long term (current) drug therapy
CPT/HCPCS: 36415; 74176; 76705; 76856; 80048; 80076; 81000; 81001; 83690; 84484; 84703; 85025; 96374; 99284; J1885; 70030-TC; A4663

== ENCOUNTER 2018-10-17 07:53 | Emergency (ER) | payer MEDICAID ==
[~2018-10-17] VITALS: Ht 177.8 cm; Wt 80.3 kg
[2018-10-17] MEDS ORDERED: ONDANSETRON ODT 4 MG TAB.RAPDIS ONE (08:14)
[2018-10-17] MEDS ORDERED: ONDANSETRON ODT 4 MG TAB.RAPDIS SL ONE (08:15)
[2018-10-17 08:22] LABS: BASOPHILS # (AUTO) 0.1 K/uL (0.0-8.0); BASOPHILS % (AUTO) 1.1 % (0.0-2.0); EOSINOPHILS # (AUTO) 0.1 K/uL (0.0-0.7); EOSINOPHILS % (AUTO) 0.8 % (0.0-7.0); HEMATOCRIT 43.6 % (31.2-41.9); HEMOGLOBIN 14.4 g/dL (10.9-14.3); LYMPHOCYTES # (AUTO) 1.9 K/uL (20.0-40.0); LYMPHOCYTES % (AUTO) 25.8 % (20.5-51.5); MEAN CORPUSCULAR HEMOGLOBIN 29.7 uug (24.7-32.8); MEAN CORPUSCULAR HGB CONC 33 g/dL (32.3-35.6); MONOCYTES # (AUTO) 0.6 K/uL (2.0-10.0); MONOCYTES % (AUTO) 8.5 % (0.0-11.0); NEUTROPHILS # (AUTO) 4.7 K/uL (1.8-8.9); NEUTROPHILS % (AUTO) 63.8 % (38.5-71.5); PLATELET COUNT (AUTO) 160 K/uL (179-408); RED BLOOD CELL COUNT(AUTO) 4.85 MIL/uL (3.63-4.92); WHITE BLOOD COUNT (AUTO) 7.3 K/uL (3.8-11.8)
[2018-10-17 08:23] LABS: *BILIRUBIN,URIN NEGATIVE (NEGATIVE); *CLARITY,URINE CLEAR (CLEAR); *COLOR,URINE YELLOW (YELLOW); *KETONES,URINE NEGATIVE (NEGATIVE); *UROBILINOGEN,URINE 0.2 E.U./dl (NORMAL); LEUKOCYTE ESTERASE ,URINE NEGATIVE (NEGATIVE); NITRITE, URINE NEGATIVE (NEGATIVE); PH,URINE 5.5 (5.0-8.0); UGLUCOSE NEGATIVE (NEGATIVE)
[2018-10-17 08:24] LABS: *BLOOD, URINE TRACE (NEGATIVE)
[2018-10-17 08:25] LABS: *URINE HCG, QUAL NEGATIVE (NEGATIVE)
[2018-10-17 08:31] LABS: BILIRUBIN,DIRECT 0.1 mg/dL (0.0-0.2); BILIRUBIN,TOTAL 0.2 mg/dL (0.2-1.0); TOTAL PROTEIN, SERUM 6.8 g/dL (6.4-8.2)
[2018-10-17 08:35] LABS: BACTERIA,URINE FEW /HPF (NONE SEEN); RBC,URINE 0-3 /HPF (0-3); SQUAMOUS EPITHELIAL CELL,UR FEW /HPF (NONE SEEN); WBC,URINE 0-3 /HPF (0-3)
--- NOTE | 2018-10-17 08:46 | NUR ---
Patient discharged to home in stable conditon. Written and verbal after care instructions given to patient. Patient verbalizes understanding of instructions.
== END 2018-10-17 08:47 | disposition home or self-care (01) ==
LOC: ER 07:53
DX: R10.13 Epigastric pain (principal); R10.11 Right upper quadrant pain; K62.89 Other specified diseases of anus and rectum; J45.909 Unspecified asthma, uncomplicated; K21.9 Gastro-esophageal reflux disease without esophagitis; F32.9 Major depressive disorder, single episode, unspecified; F20.9 Schizophrenia, unspecified; F17.200 Nicotine dependence, unspecified, uncomplicated; Z90.49 Acquired absence of other specified parts of digestive tract; Z88.8 Allergy status to other drugs, medicaments and biological substances; Z79.899 Other long term (current) drug therapy
CPT/HCPCS: 36415; 83690; 84703; 85025; A4663; Q0162

== ENCOUNTER 2018-11-19 08:48 | Emergency (ER) | payer MEDICAID ==
[~2018-11-19] VITALS: Ht 177.8 cm; Wt 81.6 kg
--- NOTE | 2018-11-19 08:50 | NUR ---
Patient is AOx4, speaking in full sentences, c/o coughing with shortness of breath for 2-3 days. Monitors on patient immediately. Patient was also told to remove her bra in case chest xrays will be done. Warm blankets provided.
[2018-11-19] MEDS ORDERED: HYOS0.1273 PO (08:56)
[2018-11-19] MEDS ORDERED: predniSONE 10 MG TABLET PO ONE (09:00)
[2018-11-19] MEDS ORDERED: IPRATROPIUM BROMIDE 0.5 MG/2.5 ML NEBU NEB ONE (09:00)
[2018-11-19] MEDS ORDERED: ALBUTEROL SULFATE 2.5 MG/3 ML NEBU NEB ONE (09:00)
[2018-11-19] MEDS ORDERED: ALBUTEROL SULFATE 2.5 MG/3 ML NEBU ONE (09:04)
[2018-11-19] MEDS ORDERED: IPRATROPIUM BROMIDE 0.5 MG/2.5 ML NEBU ONE (09:05)
[2018-11-19] MEDS ORDERED: predniSONE 10 MG TABLET ONE (09:05)
[2018-11-19] MEDS ORDERED: predniSONE 20 MG TABLET ONE (09:06)
[2018-11-19] MEDS ORDERED: predniSONE 50 MG TABLET ONE (09:06)
--- NOTE | 2018-11-19 09:50 | NUR ---
Neb treatment continues. Patient is tolerating the nebulization well.
--- NOTE | 2018-11-19 10:01 | NUR ---
Patient is resting & sitting comfortably on gurney while using her personal electronic device, NAD, no coughing heard.
--- NOTE | 2018-11-19 10:06 | NUR ---
Patient is coughing again. Patient does not want to go for 2 views chest x-ray, MD notified.
--- NOTE | 2018-11-19 10:06 | NUR ---
1mg of ativan was wasted & witnessed by KASH Heredia. Water soaked the Ativan tablet accidentally hence wasted to proper bin by KASH Heredia. Another Ativan tablet was removed & given to patient with transit manager Andrei as witness. Comfort and safety measures maintained. Extra warm blankets given. Listening ear given, monitored closely.
[2018-11-19] MEDS ORDERED: LORAZEPAM 1 MG TABLET ONE ×2 (10:09→10:12)
[2018-11-19] MEDS ORDERED: LORAZEPAM 0.5 MG TABLET PO ONE (10:15)
--- NOTE | 2018-11-19 10:16 | NUR ---
No coughing spells heard immediately after po Ativan was given.
--- NOTE | 2018-11-19 10:59 | NUR ---
Patient discharged to home in stable conditon w/ brisk steady gait. Written and verbal after care instructions given to patient. Patient verbalizes understanding & compliance of instructions.
== END 2018-11-19 10:59 | disposition home or self-care (01) ==
LOC: ER 08:48
DX: J45.901 Unspecified asthma with (acute) exacerbation (principal); F41.9 Anxiety disorder, unspecified; F32.9 Major depressive disorder, single episode, unspecified; F20.9 Schizophrenia, unspecified; F17.290 Nicotine dependence, other tobacco product, uncomplicated; Z88.8 Allergy status to other drugs, medicaments and biological substances; Z79.899 Other long term (current) drug therapy
CPT/HCPCS: 71045; 94644; 99285; 99406; J7512 ×3; A4663; J3590

== ENCOUNTER 2018-11-22 13:47 | Emergency (ER) | payer MEDICAID ==
[~2018-11-22] VITALS: Ht 177.8 cm; Wt 81.6 kg
[~2018-11-22 13:47] MED LIST changes: +HYOS0.1273 PO
[2018-11-22] MEDS ORDERED: HYOS0.1273 PO (14:00)
--- NOTE | 2018-11-22 14:06 | NUR ---
Dr Snyder is at bedside evaluating the patient.
[2018-11-22 14:37] LABS: BASOPHILS # (AUTO) 0.1 K/uL (0.0-8.0); BASOPHILS % (AUTO) 1.2 % (0.0-2.0); EOSINOPHILS % (AUTO) 0.6 % (0.0-7.0); HEMATOCRIT 43.2 % (31.2-41.9); HEMOGLOBIN 14.1 g/dL (10.9-14.3); LYMPHOCYTES # (AUTO) 2.6 K/uL (20.0-40.0); LYMPHOCYTES % (AUTO) 33.3 % (20.5-51.5); MEAN CORPUSCULAR HEMOGLOBIN 29.4 uug (24.7-32.8); MEAN CORPUSCULAR HGB CONC 33 g/dL (32.3-35.6); MEAN CORPUSCULAR VOLUME 89.9 fL (75.5-95.3); MONOCYTES # (AUTO) 0.8 K/uL (2.0-10.0); MONOCYTES % (AUTO) 9.7 % (0.0-11.0); NEUTROPHILS # (AUTO) 4.3 K/uL (1.8-8.9); NEUTROPHILS % (AUTO) 55.2 % (38.5-71.5); PLATELET COUNT (AUTO) 173 K/uL (179-408); WHITE BLOOD COUNT (AUTO) 7.8 K/uL (3.8-11.8)
[2018-11-22 14:38] LABS: *BILIRUBIN,URIN NEGATIVE (NEGATIVE); *BLOOD, URINE NEGATIVE (NEGATIVE); *CLARITY,URINE CLEAR (CLEAR); *COLOR,URINE YELLOW (YELLOW); *KETONES,URINE TRACE (NEGATIVE); *UROBILINOGEN,URINE 0.2 E.U./dl (NORMAL); LEUKOCYTE ESTERASE ,URINE NEGATIVE (NEGATIVE); NITRITE, URINE NEGATIVE (NEGATIVE); UGLUCOSE NEGATIVE (NEGATIVE)
[2018-11-22 14:44] LABS: CARBON DIOXIDE 20 mmol/L (21-32); CHLORIDE 111 mmol/L (98-107); CREATININE 1.1 mg/dL (0.6-1.3); GLUCOSE 92 mg/dL (74-106); POTASSIUM 3.6 mmol/L (3.5-5.1); UREA NITROGEN, BLOOD 15 mg/dL (7-18)
[2018-11-22 14:50] LABS: ALANINE AMINOTRANSFERASE 13 U/L (14-59); ALKALINE PHOSPHATASE 46 U/L (50-136); ASPARTATE AMINOTRANSFERASE 13 U/L (15-37); BILIRUBIN,DIRECT 0.1 mg/dL (0.0-0.2); BILIRUBIN,TOTAL 0.5 mg/dL (0.2-1.0)
[2018-11-22 14:52] LABS: ETHANOL < 3 MG/DL (0-0)
[2018-11-22 14:53] LABS: ACETAMINOPHEN < 2.0 ug/mL (10-30)
[2018-11-22 14:53] LABS: *AMPHETAMINE, URINE NEGATIVE (NEGATIVE); *BARBITURATE, URINE NEGATIVE (NEGATIVE); *CANNABINOID, URINE POSITIVE (NEGATIVE); *COCCAINE, URINE NEGATIVE (NEGATIVE); *OPIATE, URINE NEGATIVE (NEGATIVE); *PHENCYCLIDINE SCREEN,URINE NEGATIVE (NEGATIVE)
[2018-11-22 15:06] LABS: BACTERIA,URINE NONE SEEN /HPF (NONE SEEN); RBC,URINE NONE SEEN /HPF (0-3); SQUAMOUS EPITHELIAL CELL,UR FEW /HPF (NONE SEEN); WBC,URINE 0-3 /HPF (0-3)
--- NOTE | 2018-11-22 16:31 | NUR ---
Patient is eating food brought in by her visitor with good appetite.
--- NOTE | 2018-11-22 17:10 | NUR ---
Liz is here & evaluating this patient.
--- NOTE | 2018-11-22 17:20 | NUR ---
Psych & medically cleared from our ER. Patient discharged to home in stable conditon & brisk steady gait. Written and verbal after care instructions given to patient. Patient verbalizes understanding of instructions.
== END 2018-11-22 17:23 | disposition home or self-care (01) ==
LOC: ER 13:47
DX: F29 Unspecified psychosis not due to a substance or known physiological condition (principal); R10.9 Unspecified abdominal pain; F20.9 Schizophrenia, unspecified; J45.909 Unspecified asthma, uncomplicated; G89.29 Other chronic pain; M54.9 Dorsalgia, unspecified; F17.200 Nicotine dependence, unspecified, uncomplicated; Z90.49 Acquired absence of other specified parts of digestive tract; Z88.8 Allergy status to other drugs, medicaments and biological substances; Z79.899 Other long term (current) drug therapy
CPT/HCPCS: 36415; 71045; 74176; 80048; 80076; 80307; 81000; 81001; 84702; 85025; 93005; 99284; G0480 ×2; G0481; A4663

== ENCOUNTER 2018-12-04 21:10 | Emergency (ER) | payer MEDICAID ==
[~2018-12-04] VITALS: Ht 177.8 cm; Wt 81.6 kg
--- NOTE | 2018-12-04 22:22 | NUR ---
Patient eloped from facility. ER physician notified.
== END 2018-12-04 22:23 | disposition left against medical advice (07) ==
LOC: ER 21:12
DX: Z53.21 Procedure and treatment not carried out due to patient leaving prior to being seen by health care provider (principal)
CPT/HCPCS: A4663

== ENCOUNTER 2019-01-22 08:48 | Emergency (ER) | payer MEDICAID ==
[~2019-01-22] VITALS: Ht 177.8 cm; Wt 80.7 kg
[~2019-01-22 08:48] MED LIST changes: -OMEP20CA11 PO; +OMEP20CA15 PO
[2019-01-22] MEDS ORDERED: ONDANSETRON 4 MG/2 ML VIAL ONE (09:12)
[2019-01-22] MEDS ORDERED: KETOROLAC TROMETHAMINE 30 MG INJ ONE (09:12)
[2019-01-22] MEDS ORDERED: KETOROLAC TROMETHAMINE 15 MG INJ IVP ONE (09:15)
[2019-01-22] MEDS ORDERED: ONDANSETRON 4 MG/2 ML VIAL IV ONE (09:15)
[2019-01-22] MEDS ORDERED: IV NORMAL SALINE 1000 ML BAG IV ONE (09:15)
--- NOTE | 2019-01-22 09:17 | NUR ---
PT IS IN ROOM #2B. DR MCFADDEN EVALUATED THE PT.
[2019-01-22 09:23] LABS: *BILIRUBIN,URIN NEGATIVE (NEGATIVE); *CLARITY,URINE CLEAR (CLEAR); *COLOR,URINE YELLOW (YELLOW); *KETONES,URINE NEGATIVE (NEGATIVE); *UROBILINOGEN,URINE 0.2 E.U./dl (NORMAL); LEUKOCYTE ESTERASE ,URINE NEGATIVE (NEGATIVE); NITRITE, URINE NEGATIVE (NEGATIVE); PH,URINE 5.5 (5.0-8.0); UGLUCOSE NEGATIVE (NEGATIVE)
[2019-01-22 09:24] LABS: *BLOOD, URINE NEGATIVE (NEGATIVE)
[2019-01-22 09:25] LABS: *URINE HCG, QUAL NEGATIVE (NEGATIVE)
[2019-01-22] MEDS ORDERED: HYDROCODONE/APAP 10-325 MG TABLET ONE (09:55)
[2019-01-22] MEDS ORDERED: HYDROCODONE/APAP 10-325 MG TABLET PO ONE (10:00)
--- NOTE | 2019-01-22 10:19 | NUR ---
Female cable armorer accompanied female patient for (U/S tech).
[2019-01-22] MEDS ORDERED: MAG HYDROX/AL HYDROX/SIMETH 30 ML LIQUID UDC ONE (10:51)
[2019-01-22] MEDS ORDERED: MAG HYDROX/AL HYDROX/SIMETH 30 ML LIQUID UDC PO ONE (11:00)
[2019-01-22 11:21] VITALS: BP 132/69
--- NOTE | 2019-01-22 11:21 | NUR ---
PT WAS D/C'd TO HOME. D/C INSTRUCTIONS GIVEN TO THE PT.
[2019-01-22] MEDS ORDERED: FAMO40TA71 PO (18:27)
[2019-01-22] MEDS ORDERED: TIOT18CA3 IH (18:27)
[2019-01-22] MEDS ORDERED: TRINTELLIX PO (18:27)
[2019-01-22] MEDS ORDERED: METH-406 PO (18:27)
[2019-01-22] MEDS ORDERED: MELO-107 PO (18:27)
[2019-01-22] MEDS ORDERED: BUPR150T5 PO (18:27)
[2019-01-22] MEDS ORDERED: FLUT1BLS IH (18:27)
== END 2019-01-22 11:22 | disposition home or self-care (01) ==
LOC: ER 08:48
DX: R10.30 Lower abdominal pain, unspecified (principal); R19.7 Diarrhea, unspecified; J45.909 Unspecified asthma, uncomplicated; F31.9 Bipolar disorder, unspecified; F20.9 Schizophrenia, unspecified; Z88.8 Allergy status to other drugs, medicaments and biological substances; F17.200 Nicotine dependence, unspecified, uncomplicated; Z79.899 Other long term (current) drug therapy
CPT/HCPCS: 76770; 76856; 81001; 84703; 96361; 96374; 96375; 99284; J1885; J2405; A4663; J7030

== ENCOUNTER 2019-01-22 17:16 | Emergency (ER) | payer MEDICAID ==
[~2019-01-22] VITALS: Ht 177.8 cm; Wt 80.7 kg
[2019-01-22] MEDS ORDERED: MORPHINE SULFATE 4 MG/1 ML DISP.SYRIN ONE (17:42)
[2019-01-22] MEDS ORDERED: ONDANSETRON 4 MG/2 ML VIAL ONE (17:42)
[2019-01-22] MEDS ORDERED: ONDANSETRON 4 MG/2 ML VIAL IV ONE (17:45)
[2019-01-22] MEDS ORDERED: MORPHINE SULFATE 2 MG/1 ML DISP.SYRIN IV ONE (17:45)
--- NOTE | 2019-01-22 17:55 | NUR ---
Female dry wall installer accompanied female patient for (Dr Barron).
--- NOTE | 2019-01-22 17:57 | NUR ---
PT IS IN ROOM #2A. DR MCFADDEN EVALUATED THE PT.
[2019-01-22] MEDS ORDERED: IV NORMAL SALINE 1000 ML BAG IV ONE (18:00)
[2019-01-22 18:01] LABS: BASOPHILS # (AUTO) 0.1 K/uL (0.0-8.0); BASOPHILS % (AUTO) 0.9 % (0.0-2.0); EOSINOPHILS # (AUTO) 0.1 K/uL (0.0-0.7); EOSINOPHILS % (AUTO) 0.9 % (0.0-7.0); HEMOGLOBIN 13.4 g/dL (10.9-14.3); LYMPHOCYTES % (AUTO) 43.4 % (20.5-51.5); MEAN CORPUSCULAR HEMOGLOBIN 30.4 uug (24.7-32.8); MEAN CORPUSCULAR HGB CONC 34 g/dL (32.3-35.6); MEAN CORPUSCULAR VOLUME 90.3 fL (75.5-95.3); MONOCYTES # (AUTO) 0.7 K/uL (2.0-10.0); MONOCYTES % (AUTO) 10.6 % (0.0-11.0); NEUTROPHILS # (AUTO) 3.1 K/uL (1.8-8.9); NEUTROPHILS % (AUTO) 44.2 % (38.5-71.5); PLATELET COUNT (AUTO) 186 K/uL (179-408); RED BLOOD CELL COUNT(AUTO) 4.43 MIL/uL (3.63-4.92)
[2019-01-22 18:08] LABS: POTASSIUM 3.8 mmol/L (3.5-5.1)
[2019-01-22 18:14] LABS: BILIRUBIN,DIRECT 0.1 mg/dL (0.0-0.2); BILIRUBIN,TOTAL 0.3 mg/dL (0.2-1.0); TOTAL PROTEIN, SERUM 6.4 g/dL (6.4-8.2)
[2019-01-22] MEDS ORDERED: TRINTELLIX PO (18:27)
[2019-01-22] MEDS ORDERED: FLUT1BLS IH (18:27)
[2019-01-22] MEDS ORDERED: MELO-107 PO (18:27)
[2019-01-22] MEDS ORDERED: FAMO40TA71 PO (18:27)
[2019-01-22] MEDS ORDERED: BUPR150T5 PO (18:27)
[2019-01-22] MEDS ORDERED: METH-406 PO (18:27)
[2019-01-22] MEDS ORDERED: TIOT18CA3 IH (18:27)
--- NOTE | 2019-01-22 18:55 | NUR ---
PT WAS D/C'd TO HOME.D/C INSTRUCTIONS GIVEN TO THEPT BY DR MCFADDEN.
[2019-01-22 18:56] VITALS: BP 129/72
== END 2019-01-22 18:57 | disposition home or self-care (01) ==
LOC: ER 17:17
DX: R10.31 Right lower quadrant pain (principal); R19.7 Diarrhea, unspecified; M54.5 Low back pain; J45.909 Unspecified asthma, uncomplicated; F31.9 Bipolar disorder, unspecified; F20.9 Schizophrenia, unspecified; F17.200 Nicotine dependence, unspecified, uncomplicated; Z90.49 Acquired absence of other specified parts of digestive tract; Z88.8 Allergy status to other drugs, medicaments and biological substances; Z79.899 Other long term (current) drug therapy
CPT/HCPCS: 36415; 74176; 80048; 80076; 83690; 85025; 96361; 96374; 96375; 99284; J2270; J2405; A4663

== ENCOUNTER 2019-03-09 19:43 | Emergency (ER) | payer MEDICAID ==
[~2019-03-09] VITALS: Ht 177.8 cm; Wt 81.6 kg
[~2019-03-09 19:43] MED LIST changes: -ALBUTEROL SUL 2.5 MG/3 ML SOLN; -ALBUTEROL SUL 90 MCG; +BUPR150T5 PO; +FAMO40TA71 PO; +FLUT1BLS IH; -HYOS0.1273 PO; +MELO-107 PO; +METH-406 PO; -METHOCARBAMOL 500 MG TABLET; -OXCA300T15 PO; -OXYCODONE-ACETAMINOPHEN 5-325; +TIOT18CA3 IH; +TRINTELLIX PO; -XANAX 2 MG
--- NOTE | 2019-03-09 19:48 | NUR ---
Dr. Catherine at bedside for MSE.
[2019-03-09] MEDS ORDERED: predniSONE 20 MG TABLET ONE (19:57)
[2019-03-09] MEDS ORDERED: IPRATROPIUM BROMIDE 0.5 MG/2.5 ML NEBU ONE (20:00)
[2019-03-09] MEDS ORDERED: IPRATROPIUM BROMIDE 0.5 MG/2.5 ML NEBU NEB ONE (20:00)
[2019-03-09] MEDS ORDERED: ALBUTEROL SULFATE 2.5 MG/3 ML NEBU NEB ONE (20:00)
[2019-03-09] MEDS ORDERED: predniSONE 20 MG TABLET PO ONE (20:00)
[2019-03-09] MEDS ORDERED: ALBUTEROL SULFATE 2.5 MG/ 0.5 ML NEBU ONE (20:01)
--- NOTE | 2019-03-09 20:01 | NUR ---
Respiratory at bedside.
--- NOTE | 2019-03-09 20:10 | NUR ---
Xray at bedside.
[2019-03-09] MEDS ORDERED: OSELTAMIVIR PHOSPHATE 75 MG CAPSULE ONE (20:25)
[2019-03-09] MEDS ORDERED: OSELTAMIVIR PHOSPHATE 75 MG CAPSULE PO ONE (20:30)
[2019-03-09] MEDS ORDERED: ONDANSETRON ODT 4 MG TAB.RAPDIS ONE (21:08)
[2019-03-09] MEDS ORDERED: MORPHINE SULFATE 4 MG/1 ML DISP.SYRIN ONE (21:08)
[2019-03-09] MEDS ORDERED: ONDANSETRON ODT 4 MG TAB.RAPDIS SL ONE (21:15)
[2019-03-09] MEDS ORDERED: MORPHINE SULFATE 4 MG/1 ML DISP.SYRIN IM ONE (21:15)
[2019-03-09 21:21] LABS: *URINE HCG, QUAL NEGATIVE (NEGATIVE)
--- NOTE | 2019-03-09 21:40 | NUR ---
Patient discharged to home in stable conditon. Written and verbal after care instructions given. Patient verbalizes understanding of instructions. PT ambulated out of ER with steady gait, no acute signs of distress, VSS, all belongings taken, to be driven home via private vehicle by .
[2019-03-09 21:43] VITALS: BP 100/76
== END 2019-03-09 21:44 | disposition home or self-care (01) ==
LOC: ER 19:43
DX: J45.901 Unspecified asthma with (acute) exacerbation (principal); F31.9 Bipolar disorder, unspecified; G89.29 Other chronic pain; M54.9 Dorsalgia, unspecified; F17.200 Nicotine dependence, unspecified, uncomplicated; Z90.49 Acquired absence of other specified parts of digestive tract; Z88.8 Allergy status to other drugs, medicaments and biological substances; Z79.899 Other long term (current) drug therapy
CPT/HCPCS: 71045; 84703; 87400; 93005; 94640; 96372; 99284; J2270; J7512; A4663; J3590; Q0162

== ENCOUNTER 2019-03-14 14:52 | Emergency (ER) | payer MEDICAID ==
[~2019-03-14] VITALS: Ht 177.8 cm; Wt 86.2 kg
--- NOTE | 2019-03-14 14:55 | NUR ---
Dr. Snyder at bedside for MSE
[2019-03-14] MEDS ORDERED: CHARCOAL/SORBITOL SOLUTION 50 GM/240 ML BOTTLE PO ONE (15:00)
[2019-03-14] MEDS ORDERED: IV NORMAL SALINE 1000 ML BAG IV ONE (15:00)
[2019-03-14] MEDS ORDERED: CHARCOAL/SORBITOL SOLUTION 50 GM/240 ML BOTTLE ONE (15:13)
[2019-03-14 15:18] LABS: BASOPHILS % (AUTO) 0.7 % (0.0-2.0); EOSINOPHILS % (AUTO) 0.4 % (0.0-7.0); HEMATOCRIT 42.9 % (31.2-41.9); HEMOGLOBIN 14.2 g/dL (10.9-14.3); LYMPHOCYTES # (AUTO) 2.4 K/uL (20.0-40.0); LYMPHOCYTES % (AUTO) 47.7 % (20.5-51.5); MEAN CORPUSCULAR HEMOGLOBIN 29.2 uug (24.7-32.8); MEAN CORPUSCULAR HGB CONC 33 g/dL (32.3-35.6); MONOCYTES # (AUTO) 0.6 K/uL (2.0-10.0); MONOCYTES % (AUTO) 11.2 % (0.0-11.0); PLATELET COUNT (AUTO) 196 K/uL (179-408); RED BLOOD CELL COUNT(AUTO) 4.87 MIL/uL (3.63-4.92); WHITE BLOOD COUNT (AUTO) 5.1 K/uL (3.8-11.8)
--- NOTE | 2019-03-14 15:26 | NUR ---
[facility] was called with incident #[id number] per Thai.
--- NOTE | 2019-03-14 15:30 | NUR ---
Jelly RN mail clerks supervisor made aware 1:1 sitter needed. none available at this time. frequent visual checks done. all belongings taken from patient
--- NOTE | 2019-03-14 15:35 | NUR ---
[employer] at bedside
[2019-03-14 15:37] LABS: ETHANOL < 3 MG/DL (0-0)
[2019-03-14 15:38] LABS: ACETAMINOPHEN 30.7 ug/mL (10-30); ALANINE AMINOTRANSFERASE < 6 U/L (14-59); ALKALINE PHOSPHATASE < 10 U/L (50-136); ASPARTATE AMINOTRANSFERASE < 5 U/L (15-37); BILIRUBIN,DIRECT < 0.1 mg/dL (0.0-0.2); BILIRUBIN,TOTAL 0.4 mg/dL (0.2-1.0); CARBON DIOXIDE 22 mmol/L (21-32); CHLORIDE 106 mmol/L (98-107); GLUCOSE 119 mg/dL (74-106); POTASSIUM 3.1 mmol/L (3.5-5.1); TOTAL PROTEIN, SERUM 6.9 g/dL (6.4-8.2); UREA NITROGEN, BLOOD 21 mg/dL (7-18)
[2019-03-14 15:45] LABS: THYROID STIMULATING HORMONE 0.897 mIU/mL (0.358-3.740)
[2019-03-14 15:49] LABS: CREATININE < 0.2 mg/dL (0.6-1.3)
[2019-03-14] MEDS ORDERED: POTASSIUM CHLORIDE 20 MEQ TAB.PRT.SR PO ONE (16:00)
[2019-03-14] MEDS ORDERED: POTASSIUM CHLORIDE 20 MEQ TAB.PRT.SR ONE (16:03)
--- NOTE | 2019-03-14 16:04 | NUR ---
Liz, Crisis has been contacted ETA >1 hour.
--- NOTE | 2019-03-14 16:05 | NUR ---
Security at bedside 1:1 with patient
--- NOTE | 2019-03-14 16:09 | NUR ---
urine sample provided by patient. taken to lab
[2019-03-14 16:19] LABS: *BILIRUBIN,URIN NEGATIVE (NEGATIVE); *BLOOD, URINE 3+ (NEGATIVE); *CLARITY,URINE SLIGHTLY CLOUDY (CLEAR); *COLOR,URINE YELLOW (YELLOW); *KETONES,URINE NEGATIVE (NEGATIVE); *UROBILINOGEN,URINE 0.2 E.U./dl (NORMAL); LEUKOCYTE ESTERASE ,URINE NEGATIVE (NEGATIVE); NITRITE, URINE NEGATIVE (NEGATIVE); UGLUCOSE NEGATIVE (NEGATIVE)
[2019-03-14 16:24] LABS: *URINE HCG, QUAL NEGATIVE (NEGATIVE); BACTERIA,URINE FEW /HPF (NONE SEEN); RBC,URINE 80-100 /HPF (0-3); SQUAMOUS EPITHELIAL CELL,UR FEW /HPF (NONE SEEN); URINE AMORPHOUS PHOSPHATES MODERATE /HPF
[2019-03-14 16:27] LABS: *AMPHETAMINE, URINE NEGATIVE (NEGATIVE); *BARBITURATE, URINE NEGATIVE (NEGATIVE); *CANNABINOID, URINE POSITIVE (NEGATIVE); *COCCAINE, URINE NEGATIVE (NEGATIVE); *OPIATE, URINE NEGATIVE (NEGATIVE); *PHENCYCLIDINE SCREEN,URINE NEGATIVE (NEGATIVE)
--- NOTE | 2019-03-14 16:43 | NUR ---
Patient in bed AAO x4. Breathing even and unlabored. Denies any pain or discomfort. NAD noted. security at bedside 1:1 supervision. [id number] mono at bedside.
--- NOTE | 2019-03-14 17:35 | NUR ---
Liz, Crisis team late running 15 min late
--- NOTE | 2019-03-14 17:51 | NUR ---
Liz HEWITT from crisis team at bedside
--- NOTE | 2019-03-14 18:20 | NUR ---
Patient has been cleared by Liz HEWITT of the Crisis team
--- NOTE | 2019-03-14 18:35 | NUR ---
Patient discharged to home in stable conditon. Written and verbal after care instructions given. Patient verbalizes understanding of instructions. Patient ambulating with steady gait. Patient going home with [id number]. Denies any pain or discomfort at this time. VSS. NAD noted
[2019-03-14 18:37] VITALS: BP 117/75
== END 2019-03-14 18:35 | disposition home or self-care (01) ==
LOC: ER 14:52
DX: F32.9 Major depressive disorder, single episode, unspecified (principal); J45.909 Unspecified asthma, uncomplicated; Z90.49 Acquired absence of other specified parts of digestive tract; Z88.8 Allergy status to other drugs, medicaments and biological substances; Z79.899 Other long term (current) drug therapy
CPT/HCPCS: 36415; 71045; 80048; 80076; 80164; 80307; 81000; 81001; 84443; 84484; 84703; 85025; 93005; 99284; G0480 ×2; G0481; 70030-TC; A4663; J7030

== ENCOUNTER 2019-04-10 10:53 | Emergency (ER) | payer MEDICAID ==
[~2019-04-10] VITALS: Ht 177.8 cm; Wt 81.6 kg
[2019-04-10] MEDS ORDERED: CLONAZEPAM 0.5 MG TABLET PO ONE (12:00)
[2019-04-10] MEDS ORDERED: ONDANSETRON ODT 4 MG TAB.RAPDIS SL ONE (12:00)
[2019-04-10] MEDS ORDERED: predniSONE 20 MG TABLET PO ONE (12:00)
[2019-04-10] MEDS ORDERED: ONDANSETRON ODT 4 MG TAB.RAPDIS ONE (12:02)
[2019-04-10] MEDS ORDERED: predniSONE 10 MG TABLET ONE (12:02)
[2019-04-10] MEDS ORDERED: CLONAZEPAM 1 MG TABLET ONE (12:02)
[2019-04-10] MEDS ORDERED: predniSONE 50 MG TABLET ONE (12:03)
--- NOTE | 2019-04-10 12:16 | NUR ---
Patient discharged to home in stable conditon. Written and verbal after care instructions given. Patient verbalizes understanding of instructions.PT AUDREY DAVIDSON.
[2019-04-10 12:17] VITALS: BP 129/85
== END 2019-04-10 12:19 | disposition home or self-care (01) ==
LOC: ER 10:53
DX: F41.0 Panic disorder [episodic paroxysmal anxiety] (principal); R10.13 Epigastric pain; J45.901 Unspecified asthma with (acute) exacerbation; G89.29 Other chronic pain; F31.9 Bipolar disorder, unspecified; F17.200 Nicotine dependence, unspecified, uncomplicated; Z79.899 Other long term (current) drug therapy; Z88.8 Allergy status to other drugs, medicaments and biological substances; Z90.49 Acquired absence of other specified parts of digestive tract
CPT/HCPCS: 99283; J7512 ×2; A4663; Q0162

== ENCOUNTER 2019-04-16 18:28 | Emergency (ER) | payer MEDICAID ==
[~2019-04-16] VITALS: Ht 177.8 cm; Wt 81.6 kg
--- NOTE | 2019-04-16 19:04 | NUR ---
Assumed care of patient. Allen Sylvester at bedside. No acute distress noted. VSS
[2019-04-16 19:40] LABS: BASOPHILS # (AUTO) 0.1 K/uL (0.0-8.0); BASOPHILS % (AUTO) 1.2 % (0.0-2.0); EOSINOPHILS # (AUTO) 0.1 K/uL (0.0-0.7); EOSINOPHILS % (AUTO) 0.7 % (0.0-7.0); HEMATOCRIT 39.9 % (31.2-41.9); HEMOGLOBIN 13.5 g/dL (10.9-14.3); LYMPHOCYTES # (AUTO) 2.6 K/uL (20.0-40.0); LYMPHOCYTES % (AUTO) 36.6 % (20.5-51.5); MEAN CORPUSCULAR HEMOGLOBIN 29.8 uug (24.7-32.8); MEAN CORPUSCULAR HGB CONC 34 g/dL (32.3-35.6); MEAN CORPUSCULAR VOLUME 88.2 fL (75.5-95.3); MONOCYTES # (AUTO) 0.5 K/uL (2.0-10.0); MONOCYTES % (AUTO) 7.5 % (0.0-11.0); NEUTROPHILS # (AUTO) 3.9 K/uL (1.8-8.9); PLATELET COUNT (AUTO) 196 K/uL (179-408); RED BLOOD CELL COUNT(AUTO) 4.52 MIL/uL (3.63-4.92); WHITE BLOOD COUNT (AUTO) 7.2 K/uL (3.8-11.8)
[2019-04-16 19:45] LABS: CARBON DIOXIDE 27 mmol/L (21-32); CHLORIDE 109 mmol/L (98-107); CREATININE 0.9 mg/dL (0.6-1.3); GLUCOSE 85 mg/dL (74-106); POTASSIUM 3.7 mmol/L (3.5-5.1); UREA NITROGEN, BLOOD 12 mg/dL (7-18)
[2019-04-16] MEDS ORDERED: ONDANSETRON 4 MG/2 ML VIAL IV ONE (19:45)
[2019-04-16] MEDS ORDERED: IV NS 1000 ML 1,000 ML IV ONE (19:45)
[2019-04-16] MEDS ORDERED: ONDANSETRON 4 MG/2 ML VIAL ONE (19:47)
--- NOTE | 2019-04-16 19:50 | NUR ---
Allen العراقيW at bedside
[2019-04-16 19:51] LABS: ACETAMINOPHEN < 2.0 ug/mL (10-30); ALANINE AMINOTRANSFERASE 18 U/L (14-59); ALKALINE PHOSPHATASE 50 U/L (50-136); ASPARTATE AMINOTRANSFERASE 12 U/L (15-37); BILIRUBIN,DIRECT < 0.1 mg/dL (0.0-0.2); BILIRUBIN,TOTAL 0.4 mg/dL (0.2-1.0); CREATINE KINASE, TOTAL 76 U/L (26-192); TOTAL PROTEIN, SERUM 6.7 g/dL (6.4-8.2)
[2019-04-16 19:52] LABS: ETHANOL < 3 MG/DL (0-0)
[2019-04-16 20:11] LABS: THYROID STIMULATING HORMONE 1.068 mIU/mL (0.358-3.740)
--- NOTE | 2019-04-16 20:37 | NUR ---
Patient in bed, no acute distress noted. VSS
--- NOTE | 2019-04-16 21:05 | NUR ---
pt laying in bed comfortably, reports feeling better.
--- NOTE | 2019-04-16 21:46 | NUR ---
attempted to ambulate pt. pt reports dizziness and nausea. ER MD AWARE.
[2019-04-16] MEDS ORDERED: ONDANSETRON ODT 4 MG TAB.RAPDIS ONE (21:53)
[2019-04-16] MEDS ORDERED: MECLIZINE HCL 25 MG TABLET ONE (21:54)
[2019-04-16] MEDS ORDERED: MECLIZINE HCL 25 MG TABLET PO ONE (22:00)
[2019-04-16] MEDS ORDERED: ONDANSETRON ODT 4 MG TAB.RAPDIS SL ONE (22:00)
--- NOTE | 2019-04-16 22:52 | NUR ---
PATIENT IN BED, NO ACUTE DISTRESS NOTED. vss
--- NOTE | 2019-04-16 23:38 | NUR ---
pt taken to ct in a [facility].
--- NOTE | 2019-04-16 23:45 | NUR ---
pt back from ct , laying in bed comfortably. No distress noted.
[2019-04-17 00:48] VITALS: BP 111/68
--- NOTE | 2019-04-17 00:48 | NUR ---
Patient discharged to home in stable conditon. Written and verbal after care instructions given. Patient verbalizes understanding of instructions. Ambulated from ER with stable gait. All belongings with patient. patient to be driven home by taxi. VSS
== END 2019-04-17 00:50 | disposition home or self-care (01) ==
LOC: ER 18:28
DX: R42 Dizziness and giddiness (principal); R11.0 Nausea; M79.10 Myalgia, unspecified site; R51 Headache; J44.9 Chronic obstructive pulmonary disease, unspecified; F41.9 Anxiety disorder, unspecified; F32.9 Major depressive disorder, single episode, unspecified; Z88.8 Allergy status to other drugs, medicaments and biological substances; G89.29 Other chronic pain; Z79.899 Other long term (current) drug therapy; F17.200 Nicotine dependence, unspecified, uncomplicated
CPT/HCPCS: 36415; 70450; 80048; 80076; 82550; 84443; 84702; 85025; 93005; 96361; 96374; 99285; G0480 ×2; G0481; J2405; A4663; J7030; J8597; Q0162

== ENCOUNTER 2019-07-24 10:55 | Inpatient (IN) | payer MEDICAID ==
[2019-07-24] VITALS (13 sets, daily range): BP systolic 122–147; BP diastolic 70–100
[~2019-07-24] VITALS: Ht 177.8 cm; Wt 72.1 kg
[~2019-07-24 10:55] MED LIST changes: -BUPR150T5 PO; +CLON2TAB11 PO; -FAMO40TA71 PO; -LURA40TA PO; -MELO-107 PO; -METH-406 PO; +QUET25TA PO; -TOPI25TA49 PO; -TRINTELLIX PO
[2019-07-24] MEDS ORDERED: ESCI10TA PO (11:07)
[2019-07-24] MEDS ORDERED: CHARCOAL/SORBITOL SOLUTION 50 GM/240 ML BOTTLE NG ONE (11:15)
[2019-07-24] MEDS ORDERED: IV NORMAL SALINE 1000 ML BAG IV ONE (11:15)
[2019-07-24] MEDS ORDERED: ONDANSETRON 4 MG/2 ML VIAL IV ONE (11:15)
[2019-07-24] MEDS ORDERED: LORAZEPAM 2 MG/1 ML VIAL ONE ×2 (11:16→13:24)
[2019-07-24] MEDS ORDERED: LORAZEPAM 2 MG/1 ML VIAL IV ONE ×2 (11:30→15:45)
--- NOTE | 2019-07-24 11:30 | NUR ---
BIB [facility] FOR 'DRUG OVERDOSE'. PATIENT IS MOVING AROUND WITH NO PURPOSE AND MAKING INCOMPREHENSIBLE NOISES. PLACED ON A MONITOR. IV ALREADY IN PLACE.
[2019-07-24 11:34] LABS: BASOPHILS % (AUTO) 0.4 % (0.0-2.0); EOSINOPHILS # (AUTO) 0.1 K/uL (0.0-0.7); EOSINOPHILS % (AUTO) 0.5 % (0.0-7.0); HEMATOCRIT 42.3 % (31.2-41.9); HEMOGLOBIN 13.8 g/dL (10.9-14.3); LYMPHOCYTES # (AUTO) 1.9 K/uL (20.0-40.0); LYMPHOCYTES % (AUTO) 17.4 % (20.5-51.5); MEAN CORPUSCULAR HEMOGLOBIN 28.7 uug (24.7-32.8); MEAN CORPUSCULAR HGB CONC 33 g/dL (32.3-35.6); MEAN CORPUSCULAR VOLUME 87.9 fL (75.5-95.3); MONOCYTES # (AUTO) 0.7 K/uL (2.0-10.0); MONOCYTES % (AUTO) 6.7 % (0.0-11.0); NEUTROPHILS # (AUTO) 8.1 K/uL (1.8-8.9); PLATELET COUNT (AUTO) 189 K/uL (179-408); RED BLOOD CELL COUNT(AUTO) 4.81 MIL/uL (3.63-4.92)
[2019-07-24 11:36] LABS: WHITE BLOOD COUNT (AUTO) 10.8 K/uL (3.8-11.8)
[2019-07-24 11:44] LABS: ALANINE AMINOTRANSFERASE 13 U/L (14-59); ALKALINE PHOSPHATASE 50 U/L (50-136); ASPARTATE AMINOTRANSFERASE 13 U/L (15-37); BILIRUBIN,DIRECT 0.1 mg/dL (0.0-0.2); BILIRUBIN,TOTAL 0.3 mg/dL (0.2-1.0); CARBON DIOXIDE 26 mmol/L (21-32); CHLORIDE 107 mmol/L (98-107); GLUCOSE 143 mg/dL (74-106); POTASSIUM 4.3 mmol/L (3.5-5.1); UREA NITROGEN, BLOOD 15 mg/dL (7-18)
[2019-07-24 11:52] LABS: ETHANOL < 3 MG/DL (0-0)
[2019-07-24 11:53] LABS: ACETAMINOPHEN < 2.0 ug/mL (10-30); CREATINE KINASE, TOTAL 83 U/L (26-192)
[2019-07-24] MEDS ORDERED: ALBUTEROL SULFATE 8 GM HFA.AER.AD IH STA (11:58)
[2019-07-24] MEDS ORDERED: ONDANSETRON 4 MG/2 ML VIAL ONE (12:05)
[2019-07-24] MEDS ORDERED: ALBUTEROL SULFATE 2.5 MG/3 ML NEBU NEB ONE (12:15)
[2019-07-24 12:21] LABS: THYROID STIMULATING HORMONE 1.885 mIU/mL (0.358-3.740)
[2019-07-24] MEDS ORDERED: ALBUTEROL SULFATE 2.5 MG/3 ML NEBU ONE (12:22)
--- NOTE | 2019-07-24 12:45 | NUR ---
HEART RATE AND BP ARE MORE WNL NOW. SHE IS STILL NOT VERBAL AND MOVES AROUND IN BED. BREATHING TREATMENT DONE. PATIENT IS COUGHING UP THICK SECRETIONS. DR MCFADDEN AWARE. COVID SWAB DONE.
[2019-07-24 13:55] LABS: FERRITIN 16 ng/mL (8-252); LACTATE DEHYDROGENASE 312 U/L (81-234)
--- NOTE | 2019-07-24 14:50 | NUR ---
RT PT WAS INTUBATED IN ER BY DR MCFADDEN WITH OUT COMPLICATION. PT WAS PLACE ON ALVAREZ VENT SETTING AC 18 VT 550 PEEP +5 FIO2 100%. PT TUBE 7.5 23CM LIP LINE. PT CUFF CHECKED WITH CONTROLLER REPAIRER AND TESTER. PT HME AND HIPA FILTER IN PLACE. PT WAS SUCTION SPUTUM WAS COLLECTED BY RT AND WAS GIVEN TO RN ANSHUL IN ER PER RN WILL SEND SPUTUM TO LAB. PT AT THIS TIME IS TOLERATING VENT WELL NO ALARMS ON AND AUDIBLE, AMBU BAG AT BED SIDE . PT POST ABG WILL BE DONE. WILL CONTINUE TO MONITOR PT.
[2019-07-24] MEDS ORDERED: ETOMIDATE 20 MG/10 ML VIAL IV ONE ×2 (15:00→15:45)
[2019-07-24] MEDS ORDERED: NOREPINEPHRINE BITARTRATE 4 MG/4 ML VIAL IV ONE (15:11)
[2019-07-24] MEDS ORDERED: NOREPINEPHRINE BITARTRATE 8 MG in IV DEXTROSE 5% 500 ML IV PRN (15:15)
[2019-07-24] MEDS ORDERED: MISCELLANEOUS MED XX ONE (15:15)
[2019-07-24] MEDS ORDERED: PROPOFOL 200 MG/20 ML BOTTLE IV ONE (15:15)
--- NOTE | 2019-07-24 15:25 | NUR ---
PATIENT RR INCREASED ANDSHE WAS HAVING LABORED BREATHING. DOCTOR BOGDAN INTUBATED HER WITH CALOS GEORGE RT AND ME AT BEDSIDE. PATIENT IS NOW ON A VENT . VITAL SIGNS STABLE.
--- NOTE | 2019-07-24 15:45 | NUR ---
PATIENT TO BE ADMITTED TO ICU. REPORT GIVEN TO JESSIKA HEWITT.
[2019-07-24 15:58] LABS: ABG BASE EXCESS -3.3 mmol/L; ABG HCO3 22.9 mmol/L; ABG PCO2 45.8 mmHg (35.0-45.0); ABG PH 7.317 (7.350-7.450); ABG SITE RIGHT RADIAL; ABG TOTAL HEMOGLOBIN 12.9 G/dL (12.0-16.0); COHb 1.7 % (0.5-1.5); MetHb 0.4 % (0.0-1.5); O2Hb 97.6 % (94.0-97.0); VENT MODE VENT - A/C; VT, ABG 550 mL
[2019-07-24] MEDS ORDERED: Z GUARD REMEDY PASTE 57 GM TUBE TOP PRN (16:15)
[2019-07-24] MEDS ORDERED: MIDAZOLAM HCL 50 MG in IV NORMAL SALINE 40 ML IV PRN ×2 (16:30→17:30)
--- NOTE | 2019-07-24 16:30 | NUR ---
RECEIVED PATIENT FROM ER, PATIENT ON VENT, PATIENT SHOWS NO S/S OF RESPIRATORY DISTRESS.
[2019-07-24] MEDS: IV NS 1000 ML 1,000 ML IV PRN (16:32)
--- NOTE | 2019-07-24 16:40 | NUR ---
RT PT WAS TRANSPORTED TO CCU AT THIS TIME WITH OUT INCIDENT ALARMS ON AND AUDIBLE PT AMBU BAG AT BED SIDE. PT FIO2 WAS TITRATED DOWN DUE TO ABG RESUTLS . RN JESSIKA AWARE. WILL CONTINUE TO MONITOR PT.
[2019-07-24] MEDS: MIDAZOLAM HCL 50 MG in IV NORMAL SALINE 40 ML IV PRN (17:28)
[2019-07-24] MEDS: LORAZEPAM 2 MG/1 ML VIAL IV PRN ×2 (18:47→23:16)
[2019-07-24] MEDS: ALBUTEROL SULFATE 2.5 MG/3 ML NEBU NEB SCH ×2 (19:45→22:35)
[2019-07-24] MEDS: IPRATROPIUM BROMIDE 0.5 MG/2.5 ML NEBU NEB SCH ×2 (19:45→22:35)
--- NOTE | 2019-07-24 20:00 | NUR ---
ROUNDS MADE PATIENT IN BED ,ORALLY INTUBATED VENT SETTINGS AC18/FIO2 60% PEEP 5 TV550,TOLERATING VENT SETTINGS . SATURATION 97 % RR 18.SUCTION VIA MOUTH SMALL AMT OF WHITISH TO LIGHT BROWN SECRETIONS . ORAL CARE DONE .COLLECTED MRSA OF THE NARES AND URINE .
--- NOTE | 2019-07-24 20:08 | NUR ---
Pt rec'd on Perry settings AC 18, VT 550, PEEP+5 and FIO2 60%. No resp. distress noted. Pt to be monitored throughout the duration of the shift. 7.5 ETT is patent and secure at approx. 23cm. Pt to be monitored throughout the shift, PRN SX and adm'd resp neb txs per MD orders. Perry alarm parameters have been checked and remain audible.
[2019-07-24] MEDS: ENOXAPARIN SODIUM 40 MG/0.4 ML DISP.SYRIN SQ SCH (20:12)
--- NOTE | 2019-07-24 21:00 | NUR ---
INCREASE VERSED DRIP PATIENT IS WAKING UP AND STARTS TO REACH TO THE TUBE AND RR IS HIGH (BACKING + FIGHTING VENT ).continue to monitor levels of sedation . PATIENT ON SOFT WRIST RESTRAINTS PROTOCOL FOLLOWED AND OBSERVED .
[2019-07-24 22:16] LABS: *BILIRUBIN,URIN NEGATIVE (NEGATIVE); *BLOOD, URINE 2+ (NEGATIVE); *COLOR,URINE YELLOW (YELLOW); *KETONES,URINE 1+ (NEGATIVE); *UROBILINOGEN,URINE 0.2 E.U./dl (NORMAL); LEUKOCYTE ESTERASE ,URINE NEGATIVE (NEGATIVE); NITRITE, URINE NEGATIVE (NEGATIVE); PH,URINE 5.5 (5.0-8.0); UGLUCOSE NEGATIVE (NEGATIVE)
[2019-07-24 22:27] LABS: *CLARITY,URINE SLIGHTLY HAZY (CLEAR)
[2019-07-24 22:29] LABS: *AMPHETAMINE, URINE NEGATIVE (NEGATIVE); *BARBITURATE, URINE NEGATIVE (NEGATIVE); *CANNABINOID, URINE POSITIVE (NEGATIVE); *COCCAINE, URINE NEGATIVE (NEGATIVE); *OPIATE, URINE NEGATIVE (NEGATIVE); *PHENCYCLIDINE SCREEN,URINE NEGATIVE (NEGATIVE); MUCUS,URINE MANY /LPF (0-FEW); SQUAMOUS EPITHELIAL CELL,UR FEW /HPF (NONE SEEN); URIC ACID CRYSTALS,URINE FEW /HPF (NONE SEEN)
--- NOTE | 2019-07-24 23:24 | NUR ---
PICCLINE RN AT BEDSIDE PATIENT KEEPS MOVING BILATERAL ARMS,UNABLE TO PLACED PICCLINE GIVEN ATIVAN PRN AND INCREASE VERSED DRIP SEE EMAR .
--- NOTE | 2019-07-24 23:30 | NUR ---
SPOKED [facility] INFORMATION DIRECTOR NAME KEITH [id number], QUESTIONS ANSWERED EKG RESULTS LABS ,V/S AND MEDICATIONS PATIENT IS GETTING . PER KEITH PATIENT NEEDS ANOTHER EKG AND TO CALL MD IF QTC IS >500.
--- NOTE | 2019-07-24 23:50 | NUR ---
EKG DONE BY RESPIRATORY THERAPIST QT/QTC 394/462,QRS DURATION 82 MS.
--- NOTE | 2019-07-24 23:55 | NUR ---
CALLED OBDULIO MARIE AND MADE AWARE SHE SAID SHE ALREADY ORDERED PRN EKG .
[2019-07-25] VITALS (25 sets, daily range): BP systolic 92–138; BP diastolic 54–95
[2019-07-25] MEDS: ALBUTEROL SULFATE 2.5 MG/3 ML NEBU NEB SCH ×2 (02:31→07:02)
[2019-07-25] MEDS: IPRATROPIUM BROMIDE 0.5 MG/2.5 ML NEBU NEB SCH ×2 (02:31→07:02)
--- NOTE | 2019-07-25 02:32 | NUR ---
CALLED [facility] AND SPOKED WITH DR: MARGARET ,NOTIFIED MD ON AND OFF PATIENT BITTING AND FIGHTING THE VENT NEEDS MEDICATION FOR PAIN PATIENT WITH HISTORY OF CHRONIC BACK PAIN WITH ORDER TO GIVE MORPHINE SEE EMAR .
[2019-07-25] MEDS: MORPHINE SULFATE 2 MG/1 ML DISP.SYRIN IV PRN ×4 (02:43→20:20)
[2019-07-25] MEDS: MIDAZOLAM HCL 50 MG in IV NORMAL SALINE 40 ML IV PRN ×2 (03:07→10:29)
[2019-07-25] MEDS: IV NS 1000 ML 1,000 ML IV PRN ×2 (04:48→20:21)
--- NOTE | 2019-07-25 05:06 | NUR ---
AM CARE DONE ,BATH PATIENT CHANGED SOILED LINENS AND GOWN . ORAL CARE AND FOLLOW CARE DONE , OFFLOADED BACK WITH PILLOW. HOB UP .
--- NOTE | 2019-07-25 05:30 | NUR ---
AM LABS COLLECTED FROM THE PICCLINE DONE ASEPTICALLY.
--- NOTE | 2019-07-25 05:30 | NUR ---
XRAY DRIVE AWAY DRIVER CAME AND DID THE PORTABLE CHEST XRAY .
[2019-07-25 05:47] LABS: BASOPHILS % (AUTO) 0.5 % (0.0-2.0); EOSINOPHILS % (AUTO) 0.5 % (0.0-7.0); HEMATOCRIT 37.2 % (31.2-41.9); HEMOGLOBIN 12.2 g/dL (10.9-14.3); LYMPHOCYTES # (AUTO) 1.6 K/uL (20.0-40.0); LYMPHOCYTES % (AUTO) 17.5 % (20.5-51.5); MEAN CORPUSCULAR HGB CONC 33 g/dL (32.3-35.6); MEAN CORPUSCULAR VOLUME 88.4 fL (75.5-95.3); MONOCYTES # (AUTO) 0.8 K/uL (2.0-10.0); MONOCYTES % (AUTO) 8.6 % (0.0-11.0); NEUTROPHILS # (AUTO) 6.8 K/uL (1.8-8.9); NEUTROPHILS % (AUTO) 72.9 % (38.5-71.5); PLATELET COUNT (AUTO) 158 K/uL (179-408); WHITE BLOOD COUNT (AUTO) 9.3 K/uL (3.8-11.8)
[2019-07-25 06:00] LABS: CREATININE 0.8 mg/dL (0.6-1.3); MAGNESIUM 1.8 mg/dL (1.8-2.4); PHOSPHOROUS 2.9 mg/dL (2.5-4.9); POTASSIUM 3.3 mmol/L (3.5-5.1)
[2019-07-25 06:08] LABS: THYROID STIMULATING HORMONE 0.94 mIU/mL (0.358-3.740)
[2019-07-25] MEDS: LORAZEPAM 2 MG/1 ML VIAL IV PRN ×2 (06:20→13:54)
--- NOTE | 2019-07-25 06:26 | NUR ---
GIVEN ATIVAN PRN PATIENT RESTLESS AND FIGHTING OVER THE VENT . KICKING BILATERAL LOWER LEG . DOESN'T FOLLOW COMMANDS .WILL CONTINUE TO MONITOR V/S.
--- NOTE | 2019-07-25 07:02 | NUR ---
Pt rec'd on Perry settings AC 18, VT 550, PEEP+5 and FIO2 60%. No resp. distress noted. Pt to be monitored throughout the duration of the shift. 7.5 ETT is patent and secure at approx. 23cm. SX PRN and adm'd resp neb txs. Vent alarm parameters have been checked and remain audible.
[2019-07-25 07:37] LABS: ABG BASE EXCESS -1.8 mmol/L; ABG HCO3 23.1 mmol/L; ABG PCO2 39.8 mmHg (35.0-45.0); ABG PH 7.381 (7.350-7.450); ABG PO2 104.5 mmHg (75.0-100.0); ABG SITE RIGHT RADIAL; COHb 0.9 % (0.5-1.5); MetHb 0.3 % (0.0-1.5); O2Hb 96.8 % (94.0-97.0); VENT MODE VENT - A/C; VT, ABG 550 mL
[2019-07-25] MEDS ORDERED: DEXTROSE 50% 50 ML DISP.SYRIN IV PRN (08:00)
[2019-07-25] MEDS ORDERED: INSULIN REGULAR, HUMAN 300 UNIT/3 ML VIAL SQ PRN (08:00)
--- NOTE | 2019-07-25 08:30 | NUR ---
SEEN AND EXAMINED BY ILIA HARRELL WITH NEW ORDERS.
[2019-07-25] MEDS: PANTOPRAZOLE SODIUM 40 MG VIAL IV SCH (08:38)
[2019-07-25] MEDS: MONTELUKAST SODIUM 10 MG TABLET PO SCH (08:38)
[2019-07-25] MEDS: POTASSIUM CHLORIDE 50 ML IV SCH ×2 (08:40→10:40)
[2019-07-25] MEDS ORDERED: FLUTICASONE/VILANTEROL 1 EACH BLST.W.DEV IH SCH (09:00)
[2019-07-25] MEDS: ALBUTEROL SULFATE 8 GM HFA.AER.AD IH SCH ×3 (11:06→20:01)
[2019-07-25] MEDS: IPRATROPIUM BROMIDE 12.9 GM INHALER INH SCH ×3 (11:06→20:01)
--- NOTE | 2019-07-25 11:30 | NUR ---
SEEN AND EXAMINED BY DR SHRESTHA WITH NEW ORDERS. VENT CHANGED TO CPAP WITH PSV8, PEEP 5, AND FIO2-40%. PT IS ACTING AGITATED AND RESTLESS BUT TOLERATING THE WEANING , SATURATION MAINTAINED 94-97%.
[2019-07-25] MEDS: BLOOD SUGAR DIAGNOSTIC 1 EACH STRIP VI SCH ×2 (12:00→18:00)
--- NOTE | 2019-07-25 13:15 | NUR ---
ABG DRAWN BY RT ORDERED.
[2019-07-25 13:17] LABS: ABG BASE EXCESS -2.1 mmol/L; ABG HCO3 23.7 mmol/L; ABG PCO2 44.6 mmHg (35.0-45.0); ABG PH 7.343 (7.350-7.450); ABG PO2 110.1 mmHg (75.0-100.0); ABG SITE RIGHT RADIAL; ABG TOTAL HEMOGLOBIN 13.2 G/dL (12.0-16.0); COHb 1.3 % (0.5-1.5); CPAP,BG 8 cmH20; MetHb 0.4 % (0.0-1.5); O2Hb 96.7 % (94.0-97.0); VENT MODE VENT - CPAP
--- NOTE | 2019-07-25 13:26 | NUR ---
Spoke with Dr. Maravilla on the telephone. ABG results reported. MD stated to extubate pt. Titrate O2 and to keep sats > 92%. RT made aware.
[2019-07-25] MEDS ORDERED: DC PROPOFOL ONCE EXTUBATED XX PRN (13:28)
--- NOTE | 2019-07-25 13:30 | NUR ---
ABG RESULT CALLED OUT TO DR SHRESTHA WITH AN ORDER TO EXTUBATE THE PT.
--- NOTE | 2019-07-25 13:35 | NUR ---
Pt extubated by respiratory therapist and placed on 4L NC. Pt saturating 98% wnl. Pt stable and nad noted after extubation.
--- NOTE | 2019-07-25 13:35 | NUR ---
VERSED DRIP STOPPED AND DISCONTINUED. PT EXTUBATED BY RT. PT TOLERATED WELL. PLACED ON O2 AT 4L NC , SATURATION IS 98%. PT IS COUGHING ON AND OFF AND ABLE TO EXPECTORATE. SPEECH IS STILL HARSH AND SLIGHTLY UNCLEAR. ALERT AND ORIENTED X3. FOLLOWS COMMANDS.
[2019-07-25] MEDS: ACETAMINOPHEN 325 MG TABLET PO PRN (13:54)
[2019-07-25] MEDS: ONDANSETRON 4 MG/2 ML VIAL IV PRN (16:31)
--- NOTE | 2019-07-25 18:00 | NUR ---
PT JUST FALLEN SO SOUND ASLEEP AFTER GIVEN THE MORPHINE, SKIPPED THE ACCU CHECK AT THIS TIME.
--- NOTE | 2019-07-25 19:20 | NUR ---
Received patient in bed, andrews A/O x3. She is moving about independently in bed. Patient was recently extubated @1335 this afternoon and has noticable horseness when she speaks. She also has a productuve cough with slightly bloody sputum. Patient's main complaints are of lower back pain. She also expresses a desire to go home. patient has a sevilla catheter that is draining slightly clowdy yellow urine. PICC line in the upper right arm. Peripheral line in the right wrist.
[2019-07-25] MEDS: ENOXAPARIN SODIUM 40 MG/0.4 ML DISP.SYRIN SQ SCH (20:22)
--- NOTE | 2019-07-25 21:00 | NUR ---
Patient is experiencing a productive cough with some slight blood in the sputum. Choose to hold the Lovenox until this resolves.
[2019-07-26] VITALS (13 sets, daily range): BP systolic 91–112; BP diastolic 43–70
[2019-07-26] MEDS: BLOOD SUGAR DIAGNOSTIC 1 EACH STRIP VI SCH ×5 (00:03→20:30)
[2019-07-26] MEDS: IPRATROPIUM BROMIDE 12.9 GM INHALER INH SCH ×5 (00:12→23:30)
[2019-07-26] MEDS: ALBUTEROL SULFATE 8 GM HFA.AER.AD IH SCH ×6 (00:12→23:30)
--- NOTE | 2019-07-26 05:00 | NUR ---
Patients cough and soreness in the throat is progressively worsening. Sputum production and violence of the cough has increased and is causing the patient great discomfort and pain. Attempted to get a hold of MD 5 times and finally spoke to Dr. Allison and he declined to order anything and referred it to RT to take care of. I will endorse this to the next shift nurse to pass on to the MD on rounds to assess and get an order.
[2019-07-26] MEDS: MORPHINE SULFATE 2 MG/1 ML DISP.SYRIN IV PRN ×2 (05:55→21:31)
[2019-07-26 06:08] LABS: BASOPHILS # (AUTO) 0.1 K/uL (0.0-8.0); BASOPHILS % (AUTO) 0.6 % (0.0-2.0); EOSINOPHILS # (AUTO) 0.1 K/uL (0.0-0.7); EOSINOPHILS % (AUTO) 0.8 % (0.0-7.0); HEMATOCRIT 33.8 % (31.2-41.9); HEMOGLOBIN 11.3 g/dL (10.9-14.3); LYMPHOCYTES # (AUTO) 1.4 K/uL (20.0-40.0); LYMPHOCYTES % (AUTO) 15.9 % (20.5-51.5); MEAN CORPUSCULAR HEMOGLOBIN 29.6 uug (24.7-32.8); MEAN CORPUSCULAR HGB CONC 34 g/dL (32.3-35.6); MEAN CORPUSCULAR VOLUME 88.2 fL (75.5-95.3); MONOCYTES # (AUTO) 0.8 K/uL (2.0-10.0); MONOCYTES % (AUTO) 9.6 % (0.0-11.0); NEUTROPHILS # (AUTO) 6.4 K/uL (1.8-8.9); NEUTROPHILS % (AUTO) 73.1 % (38.5-71.5); PLATELET COUNT (AUTO) 137 K/uL (179-408); RED BLOOD CELL COUNT(AUTO) 3.83 MIL/uL (3.63-4.92); WHITE BLOOD COUNT (AUTO) 8.8 K/uL (3.8-11.8)
[2019-07-26 06:26] LABS: CREATININE 0.7 mg/dL (0.6-1.3); MAGNESIUM 1.5 mg/dL (1.8-2.4); PHOSPHOROUS 2.8 mg/dL (2.5-4.9); POTASSIUM 3.3 mmol/L (3.5-5.1)
--- NOTE | 2019-07-26 08:10 | NUR ---
RECIEVED PT LYING IN BED, AWAKE, ALERT AND ORIENTEDX3. APPEARS IN GOOD SPIRIT. HR IS SR NO ECTOPY. LUNG IS CLEAR . DIMINISHED AT THE BASES. SATURATING WELL ON RA. PT IS COUGHING ON AND OFF, SMALL AMOUNT OF WHITISH PHLEGM. NO APPARENT DISTRESS NOTED.
[2019-07-26 08:14] LABS: ABG BASE EXCESS -3.3 mmol/L; ABG HCO3 20.7 mmol/L; ABG PH 7.403 (7.350-7.450); ABG PO2 63.8 mmHg (75.0-100.0); ABG SITE LEFT BRACHIAL; ABG TOTAL HEMOGLOBIN 12.4 G/dL (12.0-16.0); COHb 1.5 % (0.5-1.5); MetHb 0.4 % (0.0-1.5); O2Hb 90.8 % (94.0-97.0); VENT MODE room air
[2019-07-26] MEDS: PANTOPRAZOLE SODIUM 40 MG VIAL IV SCH (09:02)
[2019-07-26] MEDS: MONTELUKAST SODIUM 10 MG TABLET PO SCH (09:02)
--- NOTE | 2019-07-26 09:30 | NUR ---
CALLED UP THE CRISIS TEAM TO EVALUATE THE PT AND ALSO LEFT A MESSAGE FOR DR CLAY FOR A PSYCHE CONSULT.
--- NOTE | 2019-07-26 10:00 | NUR ---
SEEN AND EXAMINED BY DR SHRESTHA , SOCIAL MEDIA SPECIALIST ORDERS.
[2019-07-26] MEDS ORDERED: MAGNESIUM OXIDE 400 MG TABLET PO ONE (11:00)
[2019-07-26] MEDS: POTASSIUM CHLORIDE 50 ML IV SCH ×4 (11:00→12:40)
[2019-07-26] MEDS: IV NS 1000 ML 1,000 ML IV PRN (11:24)
--- NOTE | 2019-07-26 11:30 | NUR ---
PT IS DOWNGRADED DOWN TO TELEMETRY. KCL 20 MEQ IVPB ORDERED AND FIRST BAG STARTED.
--- NOTE | 2019-07-26 11:50 | NUR ---
REPORT GIVEN TO HOMER RN PT IS BEING TRANSFERRED TO RM [id number].
--- NOTE | 2019-07-26 12:15 | NUR ---
SEEN AND EXAMINED BY CONNIE DIRECTOR TRANSLATIONAL WITH NEW ORDERS. PT DID NOT EAT WELL , HAS DIFFICULTY SWALLOWING POST INTUBATION. FOLEYCATHETER REMOVED PER PT REQUEST AND VOIDED.
--- NOTE | 2019-07-26 12:40 | NUR ---
PT TRANSFERRED TO [facility] VIA W/C ACCOMPANIED BY A 1:1 SITTER.
--- NOTE | 2019-07-26 13:00 | NUR ---
Received Pt from [facility] Pt with sitter at bedside for safety. Sitter there for pt secondary to SI. Awaiting Crisis team evaluation from YENNI [facility]WITT notified. VSS. Called to merchandise pickup/receiving associate pt's phone and cord for safety prevention- spoke with Wai. Phone and cord are considered contraband for pt and could be used by pt to aid with her SI. MR Manasa Valadez, , willing to merchandise pickup/receiving associate phone.
--- NOTE | 2019-07-26 16:31 | NUR ---
Gave advisement to pt. PT put on hold per Juju of crisis team.
--- NOTE | 2019-07-26 16:46 | NUR ---
Manasa Replaced By [facility] [phone] picked up pt's phone and cord signed belongings sent home.
--- NOTE | 2019-07-26 16:55 | NUR ---
Spoke with David director of casework from poison control re pt's case # [id number] will be closed secondary to pt is stable.
--- NOTE | 2019-07-26 17:11 | NUR ---
PT unable to tolerate Potassium IV. Got order for Powder form [facility] CON 20meq for K 3.3 level. Addendum: 07/26/19 at 1714 by HOMER ETTA HEWITT Spoke with Felipa HEWITT ICU to undo Potassium IV secondary to pt unable to tolerate IV on the 1st bag.
--- NOTE | 2019-07-26 17:53 | NUR ---
NO Potassium IV given by TORIN yeung pt unable to tolerate IV potassium. Will give po kclor con as ordered and hospitalist aware.
[2019-07-26] MEDS: POTASSIUM CHLORIDE 20 MEQ POWDER PACKET PO SCH (18:06)
--- NOTE | 2019-07-26 18:28 | NUR ---
Pt is in no acute distress. PT took potassium po. Sitter at bedside for safety.
[2019-07-26] MEDS: ENOXAPARIN SODIUM 40 MG/0.4 ML DISP.SYRIN SQ SCH (20:08)
[2019-07-26] MEDS ORDERED: INSULIN REGULAR, HUMAN 300 UNIT/3 ML VIAL SQ PRN (21:00)
--- NOTE | 2019-07-26 21:00 | NUR ---
Patient noted w/ oral thrush, n.o from Desiree PRINTING GRAY CLOTH TENDER for Nystatin swish and swallow QID.
[2019-07-26] MEDS: NYSTATIN SUSPENSION 5 ML LIQUID UDC PO SCH (22:00)
--- NOTE | 2019-07-26 23:00 | NUR ---
Nystatin not given, med not available as per RN screw supervisor
[2019-07-27] MEDS: LORAZEPAM 2 MG/1 ML VIAL IV PRN ×4 (00:20→21:01)
[2019-07-27 00:36] VITALS: BP 110/69
--- NOTE | 2019-07-27 00:40 | NUR ---
Patient still complaining of back pain and headache and said that the Morphine dose that she got didn't even helped. Informed oncall Dr. Alliosn w/ n.o may give extra dose of Morphine 2mg IV x 1 now.
[2019-07-27] MEDS ORDERED: MORPHINE SULFATE 2 MG/1 ML DISP.SYRIN IV ONE (00:45)
[2019-07-27] MEDS: ALBUTEROL SULFATE 8 GM HFA.AER.AD IH SCH ×5 (03:30→23:30)
[2019-07-27] MEDS: IPRATROPIUM BROMIDE 12.9 GM INHALER INH SCH ×5 (03:30→23:30)
[2019-07-27] MEDS: IV NS 1000 ML 1,000 ML IV PRN ×2 (05:54→18:19)
[2019-07-27] MEDS: BLOOD SUGAR DIAGNOSTIC 1 EACH STRIP VI SCH ×4 (06:36→21:23)
--- NOTE | 2019-07-27 06:41 | NUR ---
Patient slept intermittently. No SOB noted. Noted w/ episodes of agitation and anxiety, medicated w/ PRN Ativan 2mg IV. PICC line on MARIELA intact and patent w/ IVF infusing. All needs attended. Will endorse accordingly
[2019-07-27 06:47] LABS: BASOPHILS # (AUTO) 0.1 K/uL (0.0-8.0); EOSINOPHILS # (AUTO) 0.1 K/uL (0.0-0.7); EOSINOPHILS % (AUTO) 2.5 % (0.0-7.0); HEMATOCRIT 34.7 % (31.2-41.9); HEMOGLOBIN 11.5 g/dL (10.9-14.3); LYMPHOCYTES # (AUTO) 2.2 K/uL (20.0-40.0); LYMPHOCYTES % (AUTO) 39.1 % (20.5-51.5); MEAN CORPUSCULAR HEMOGLOBIN 29.2 uug (24.7-32.8); MEAN CORPUSCULAR HGB CONC 33 g/dL (32.3-35.6); MEAN CORPUSCULAR VOLUME 87.9 fL (75.5-95.3); MONOCYTES # (AUTO) 0.7 K/uL (2.0-10.0); MONOCYTES % (AUTO) 11.6 % (0.0-11.0); NEUTROPHILS # (AUTO) 2.6 K/uL (1.8-8.9); NEUTROPHILS % (AUTO) 45.8 % (38.5-71.5); PLATELET COUNT (AUTO) 156 K/uL (179-408); RED BLOOD CELL COUNT(AUTO) 3.95 MIL/uL (3.63-4.92); WHITE BLOOD COUNT (AUTO) 5.7 K/uL (3.8-11.8)
[2019-07-27 07:03] LABS: CREATININE 0.8 mg/dL (0.6-1.3); MAGNESIUM 1.8 mg/dL (1.8-2.4); PHOSPHOROUS 3.2 mg/dL (2.5-4.9)
[2019-07-27 07:30] VITALS: BP 107/68
--- NOTE | 2019-07-27 08:00 | NUR ---
PATIENT IS AWAKE ALERT AND ORIENTED HYPERVOCAL POOR INSIGHT ANXIOUS WANTS TO KNOW WHEN THE PSYCHIATRIST WILL BE HERE TO SEE HER AND REINSTATE HER USUAL MEDICATIONS NOTIFIED HER THAT THE PSYCH DOCTOR IS AWARE AND WILL BE MAKING ROUNDS SOON SHE IS VERY UPSET AND STATED WILL CALL THE POLICE. WILL CONTINUE TO PROVIDE SAFE AND THERAPEUTIC ENVIRONMENT AT ALL TIMES.
[2019-07-27] MEDS: POTASSIUM CHLORIDE 20 MEQ POWDER PACKET PO SCH (08:04)
[2019-07-27] MEDS: NYSTATIN SUSPENSION 5 ML LIQUID UDC PO SCH ×4 (08:06→21:03)
[2019-07-27] MEDS: PANTOPRAZOLE SODIUM 40 MG VIAL IV SCH (08:08)
[2019-07-27] MEDS: ONDANSETRON 4 MG/2 ML VIAL IV PRN (09:26)
--- NOTE | 2019-07-27 09:26 | NUR ---
PATIENT STATED HAS NAUSEA AT THIS TIME MEDICATED WITH ZOFRAN ORDERED SHE REMAINS ON ONE ON ONE SITTER ORDERED WILL CONTINUE TO OBSERVE.
[2019-07-27] MEDS: MORPHINE SULFATE 2 MG/1 ML DISP.SYRIN IV PRN ×2 (09:44→18:20)
--- NOTE | 2019-07-27 09:46 | NUR ---
STATED HAS GENERALISED PAIN ALL OVER HER BODY ESPECIALLY HER BACK AND NECK MEDICATED WITH MORPHINE ORDERED PATIENT MADE COMFORTABLE REASSURED.
[2019-07-27] MEDS ORDERED: TETRACA/BENZOCA/BUTAMBEN SPRAY 1 SPR CAN TP PRN (11:15)
[2019-07-27] MEDS ORDERED: BENZOCAINE 20% TOPICAL SPRAY 59.2 ML MM PRN (11:15)
--- NOTE | 2019-07-27 11:15 | NUR ---
HEBERT MARIE TRANSITION SOCIAL WORKER HERE TO SEE PATIENT AND AWARE THAT SHE IS ASKING FOR MORE PAIN AND RELAXATION MEDICATIONS SHE IS ALSO AWARE THAT PATIENT IS S/P INTUBATION AND C/O SORE THROAT STATED WILL ORDER SOME MEDICATIONS FOR HER.
[2019-07-27] MEDS ORDERED: PHENOL/SODIUM PHENOLATE SPRAY 177 ML BOTTLE MM PRN (12:00)
[2019-07-27] MEDS: ESCITALOPRAM OXALATE 10 MG TABLET PO SCH (13:53)
[2019-07-27 14:34] VITALS: BP 104/71
--- NOTE | 2019-07-27 15:58 | NUR ---
PATIENT IS VERY AGITATED VERBALLY ABUSIVE YELLING ATTEMPTED TO GIVE HER ATIVAN ORDERED BUT SHE STATED THAT SHE WILL NOT TAKE WANTS HER PSYCH MEDICATIONS.
--- NOTE | 2019-07-27 16:34 | NUR ---
PATIENT APPARENTLY CALLED 911 AND THE POLICE RETURNED CALL VERBALLY ABUSIVE OUT OF HER ROOM YELLING IN THE HALLWAY UNABLE TO CONTROL HER CODE MCMILLAN CALLED.CALLED DR CAGE LEFT HIM MESSAGE RE AGITATION AND RESTLESSNESS AWAITING RETURN CALL
--- NOTE | 2019-07-27 16:44 | NUR ---
ZYPREXA AND BENADRYL GIVEN IM ORDERED PATIENT DID NOT RESIST GETTING THE SHOT.
[2019-07-27] MEDS ORDERED: diphenhydrAMINE 50 MG/1 ML VIAL IM ONE (16:45)
[2019-07-27] MEDS ORDERED: OLANZAPINE 10 MG VIAL IM ONE (16:45)
--- NOTE | 2019-07-27 17:49 | NUR ---
MORE CALM AND QUIET STATED THAT SHE WAS SORRY FOR HER ACTIONS RESTING QUIETLY.WILL CONTINUE TO OBSERVE.
[2019-07-27] MEDS ORDERED: MONTELUKAST SODIUM 10 MG TABLET PO SCH (18:00)
--- NOTE | 2019-07-27 19:00 | NUR ---
PATIENT ALERT ORIENTED, NO SOB NO CHEST PAIN TELE MONITOR SINUS RHYTHYM AT THIS TIME. PATIENT CONTINUE ON PAIN MANAGEMENT, PATIENT ALSO MULTIPLE REQUEST OF OF PAIN MEDICATION, WILL NOTIFY MD REGARDING THE REQUEST, CONT ON 1;1 SITTER DUE SI, CONT TO MONITOR.
[2019-07-27] MEDS: ACETAMINOPHEN 325 MG TABLET PO PRN (19:40)
[2019-07-27 20:09] VITALS: BP 108/72
[2019-07-27] MEDS ORDERED: ARIPIPRAZOLE 5 MG TABLET PO SCH (21:00)
[2019-07-27] MEDS: ENOXAPARIN SODIUM 40 MG/0.4 ML DISP.SYRIN SQ SCH (21:19)
--- NOTE | 2019-07-27 22:15 | NUR ---
PATIENT STILL COMPLAIN OF GEN BODY PAIN, PATIENT HAS MULTIPLE BODY BRUISES COMPLAINING OF SOME DISCOMFORT. PATIENT UNABLE TO TOLERATE MORPHINE IT GIVES PATIENT HEADACHES, PATIENT REQUEST TORADOL FOR PAIN. DOMINIQUE KELLY CRYSTAL GRINDER HAS NEW ORDER. PATIENT HAS EPISODE OF RESTLESSNESS, WITH MULTIPLE DEMANDS. PATIENT ATTEND ALL NEEDS MUCH POSSIBLE, CONT 1;1 SITTER.
[2019-07-27] MEDS: KETOROLAC TROMETHAMINE 15 MG INJ IVP PRN (22:33)
[2019-07-28 00:30] VITALS: BP 98/62
[2019-07-28] MEDS: IPRATROPIUM BROMIDE 12.9 GM INHALER INH SCH ×3 (03:30→11:31)
[2019-07-28] MEDS: ALBUTEROL SULFATE 8 GM HFA.AER.AD IH SCH ×3 (03:30→11:30)
[2019-07-28 03:38] VITALS: BP 94/51
[2019-07-28] MEDS: BLOOD SUGAR DIAGNOSTIC 1 EACH STRIP VI SCH ×2 (06:29→11:30)
--- NOTE | 2019-07-28 06:47 | NUR ---
PATIENT SLEPT 7 HRS, NO SOB NO CHEST PAIN, TELE MONITOR SINUS RHYTHM, CONT 1;1 SITTER FOR SAFETY, CONT TO MONITOR.
[2019-07-28] MEDS ORDERED: PANTOPRAZOLE SODIUM 40 MG TABLET.DR PO SCH (07:00)
[2019-07-28 08:27] VITALS: BP 109/61
[2019-07-28] MEDS: KETOROLAC TROMETHAMINE 15 MG INJ IVP PRN (08:40)
[2019-07-28] MEDS: LORAZEPAM 2 MG/1 ML VIAL IV PRN (08:41)
[2019-07-28] MEDS: POTASSIUM CHLORIDE 20 MEQ POWDER PACKET PO SCH (08:44)
[2019-07-28] MEDS: ESCITALOPRAM OXALATE 10 MG TABLET PO SCH (08:44)
[2019-07-28] MEDS: NYSTATIN SUSPENSION 5 ML LIQUID UDC PO SCH (08:44)
[2019-07-28 08:59] LABS: CREATININE 0.9 mg/dL (0.6-1.3); POTASSIUM 4.3 mmol/L (3.5-5.1)
[2019-07-28] MEDS ORDERED: CLONAZEPAM 1 MG TABLET PO PRN (09:30)
[2019-07-28] MEDS ORDERED: CLON1TAB12 PO (10:41)
[2019-07-28] MEDS ORDERED: OLAN5TAB3 PO (10:41)
--- NOTE | 2019-07-28 10:42 | NUR ---
Received patient awake in bed in stable condition. During rounds, patient becomes agitated and complaint about AUTOMATIC RIVETING MACHINE OPERATOR, verbalize that AUTOMATIC RIVETING MACHINE OPERATOR do not like her as patient wants another staff. Upon interview, patient convince for the same sitter AUTOMATIC RIVETING MACHINE OPERATOR. Patient receive ativan 1ML for agitation and toradol 1ML for pain. Patient will be discharge today. MD Quintin winkler and HEALTH CLINICIAN Malcolm. Patient will be worm picker by via private car. will continue monitor
[2019-07-28] MEDS ORDERED: HYDROCODONE/APAP 5-325MG TABLET PO ONE (11:15)
--- NOTE | 2019-07-28 12:27 | NUR ---
Patient discharge to home at 1220pm in stable condition via private car, edge burnisher uppers by . Discharge instruction given to patient. verbalize understanding. Patient PICC line removed. MD Ribeiro and HTML WEB DEVELOPER Malcolm aware. Discharge prescription given. Patient requested additional lexapro and clonopin. MD Ribeiro notified but refuse to give prescription. Patient notify and agree. not in distress.
[2019-07-28] MEDS ORDERED: OLANZAPINE 5 MG TABLET PO SCH (21:00)
== END 2019-07-28 12:20 | disposition home or self-care (01) | DRG 817 ==
LOC: ER 10:55 → CCU 15:44 → TELE3 07-26 12:44
PROVIDERS: ADMIT Registered Nurse; ATTEND Registered Nurse
PROC: 0BH17EZ Insertion of Endotracheal Airway into Trachea, Via Natural or Artificial Opening (ICD-10-PCS; principal; 2019-07-24)
PROC: 5A1935Z Respiratory Ventilation, Less than 24 Consecutive Hours (ICD-10-PCS; principal; 2019-07-24)
PROC: 02HV33Z Insertion of Infusion Device into Superior Vena Cava, Percutaneous Approach (ICD-10-PCS; 2019-07-25)
PROC: B548ZZA Ultrasonography of Superior Vena Cava, Guidance (ICD-10-PCS; 2019-07-25)
DX: T43.592A Poisoning by other antipsychotics and neuroleptics, intentional self-harm, initial encounter (principal); J96.01 Acute respiratory failure with hypoxia; J96.02 Acute respiratory failure with hypercapnia; G92 Toxic encephalopathy; T42.4X2A Poisoning by benzodiazepines, intentional self-harm, initial encounter; T43.222A Poisoning by selective serotonin reuptake inhibitors, intentional self-harm, initial encounter; E11.9 Type 2 diabetes mellitus without complications; F17.210 Nicotine dependence, cigarettes, uncomplicated; G89.29 Other chronic pain; J44.9 Chronic obstructive pulmonary disease, unspecified; F25.9 Schizoaffective disorder, unspecified; K58.9 Irritable bowel syndrome, unspecified; J45.909 Unspecified asthma, uncomplicated; F12.10 Cannabis abuse, uncomplicated; Y92.009 Unspecified place in unspecified non-institutional (private) residence as the place of occurrence of the external cause; F31.30 Bipolar disorder, current episode depressed, mild or moderate severity, unspecified; R94.31 Abnormal electrocardiogram [ECG] [EKG]
CPT/HCPCS: 36415; 36600; 70030-TC; 70450; 71045; 74018; 80307; 80329; 82785; 83615; 83735; 84100; 84443; 85025; 85730; 86140; 87070; 93005; 94002; 94640; 94664; A4217; A4663; C9113; G0378; G0480; G0480-TC; J1200; J1650; J1815; J1885; J2060; J2250; J2270; J2358; J2405; J3480; J3490; J3535; J3590; J7030; J7060; U0003-CS

== ENCOUNTER 2019-08-08 01:18 | Emergency (ER) | payer MEDICAID ==
[~2019-08-08] VITALS: Ht 177.8 cm; Wt 76.2 kg
[~2019-08-08 01:18] MED LIST changes: +CLON1TAB12 PO; -CLON2TAB11 PO; +ESCI10TA PO; +OLAN5TAB3 PO; -QUET25TA PO
--- NOTE | 2019-08-08 01:30 | NUR ---
PATIENT ARRIVED AT THE ER WITH C/O THROAT PAIN SINCE 07/25/19,C/O LLE/LEFT FLANK/LLQ PAIN X 2 DAYS.
[2019-08-08] MEDS ORDERED: OLAN15TA3 PO (01:31)
--- NOTE | 2019-08-08 01:57 | NUR ---
Dr. Catherine at bedside for MSE.
[2019-08-08 02:21] LABS: *BILIRUBIN,URIN NEGATIVE (NEGATIVE); *BLOOD, URINE NEGATIVE (NEGATIVE); *CLARITY,URINE CLEAR (CLEAR); *COLOR,URINE YELLOW (YELLOW); *KETONES,URINE NEGATIVE (NEGATIVE); *UROBILINOGEN,URINE 0.2 E.U./dl (NORMAL); LEUKOCYTE ESTERASE ,URINE TRACE (NEGATIVE); NITRITE, URINE NEGATIVE (NEGATIVE); PH,URINE 5.5 (5.0-8.0); UGLUCOSE NEGATIVE (NEGATIVE)
[2019-08-08 02:27] LABS: RBC,URINE 0-3 /HPF (0-3)
[2019-08-08 02:28] LABS: *URINE HCG, QUAL NEGATIVE (NEGATIVE); BACTERIA,URINE FEW /HPF (NONE SEEN); SQUAMOUS EPITHELIAL CELL,UR MODERATE /HPF (NONE SEEN)
--- NOTE | 2019-08-08 02:47 | NUR ---
Dr. Catherine at bedside.
--- NOTE | 2019-08-08 02:50 | NUR ---
Patient discharged to home in stable condition. Written and verbal after care instructions given. Patient verbalizes understanding of instructions. Stressed follow up or return to ER for worsening s/s. Pt ambulated out of the ER with steady gait. All belongings with pt.
[2019-08-08] MEDS ORDERED: NITROFURANTOIN/NITROFURAN MAC 100 MG CAPSULE ONE (02:51)
[2019-08-08 02:54] VITALS: BP 110/80
[2019-08-08] MEDS ORDERED: NITROFURANTOIN/NITROFURAN MAC 100 MG CAPSULE PO ONE (03:00)
== END 2019-08-08 02:50 | disposition home or self-care (01) ==
LOC: ER 01:21
DX: N39.0 Urinary tract infection, site not specified (principal); J02.9 Acute pharyngitis, unspecified; F25.0 Schizoaffective disorder, bipolar type; Z79.899 Other long term (current) drug therapy; J44.9 Chronic obstructive pulmonary disease, unspecified
CPT/HCPCS: 84703; 87086; A4663

== ENCOUNTER 2019-08-24 10:54 | Emergency (ER) | payer MEDICAID ==
[~2019-08-24] VITALS: Ht 177.8 cm; Wt 76.2 kg
[~2019-08-24 10:54] MED LIST changes: -CLON1TAB12 PO; -ESCI10TA PO; +OLAN15TA3 PO; -OLAN5TAB3 PO
[2019-08-24] MEDS ORDERED: IBUPROFEN 600 MG TABLET PO ONE (11:15)
[2019-08-24] MEDS ORDERED: IBUPROFEN 600 MG TABLET ONE (11:37)
--- NOTE | 2019-08-24 11:59 | NUR ---
PATIENT WAS SEEN BY MD. XRAYS DONE. DC, RX AND FOLLOW UP INSTRUCTIONS GIVEN AND EXPLAINED TO PATIENT WHO STATES SHE UNDERSTANDS ALL INSTRUCITONS. JOSIANE WRAP APPLIED.
== END 2019-08-24 12:03 | disposition home or self-care (01) ==
LOC: ER 10:54
DX: S90.31XA Contusion of right foot, initial encounter (principal); W20.8XXA Other cause of strike by thrown, projected or falling object, initial encounter; Y93.89 Activity, other specified; Y92.89 Other specified places as the place of occurrence of the external cause; J44.9 Chronic obstructive pulmonary disease, unspecified; F25.0 Schizoaffective disorder, bipolar type; Z79.899 Other long term (current) drug therapy
CPT/HCPCS: 73630; A4663

== ENCOUNTER 2019-08-29 00:59 | Emergency (ER) | payer MEDICAID ==
[~2019-08-29] VITALS: Ht 177.8 cm; Wt 72.6 kg
[2019-08-29] MEDS ORDERED: CITA40TA22 PO (01:05)
--- NOTE | 2019-08-29 01:15 | NUR ---
Dr. Snyder at bedside for MSE.
[2019-08-29] MEDS ORDERED: HYDROMORPHONE 2 MG/1 ML DISP.SYRIN ONE (01:30)
[2019-08-29] MEDS ORDERED: ONDANSETRON 4 MG/2 ML VIAL ONE (01:31)
[2019-08-29] MEDS: ONDANSETRON 4 MG/2 ML VIAL IM ONE (01:35)
[2019-08-29] MEDS: HYDROMORPHONE 1 MG/1 ML DISP.SYRIN IM ONE (01:35)
[2019-08-29 01:57] LABS: *BILIRUBIN,URIN NEGATIVE (NEGATIVE); *BLOOD, URINE NEGATIVE (NEGATIVE); *CLARITY,URINE CLEAR (CLEAR); *COLOR,URINE YELLOW (YELLOW); *KETONES,URINE NEGATIVE (NEGATIVE); *UROBILINOGEN,URINE 0.2 E.U./dl (NORMAL); LEUKOCYTE ESTERASE ,URINE NEGATIVE (NEGATIVE); NITRITE, URINE NEGATIVE (NEGATIVE); PH,URINE 5.5 (5.0-8.0); UGLUCOSE NEGATIVE (NEGATIVE)
[2019-08-29 01:59] LABS: *URINE HCG, QUAL NEGATIVE (NEGATIVE)
[2019-08-29] MEDS ORDERED: MAG HYDROX/AL HYDROX/SIMETH 30 ML LIQUID UDC ONE ×2 (02:14)
[2019-08-29] MEDS ORDERED: DICYCLOMINE HCL LIQ 10 MG/5 ML UDC ONE (02:14)
[2019-08-29] MEDS: MAG HYDROX/AL HYDROX/SIMETH 30 ML LIQUID UDC PO ONE (02:30)
[2019-08-29] MEDS: DICYCLOMINE HCL LIQ 10 MG/5 ML UDC PO ONE (02:30)
--- NOTE | 2019-08-29 02:40 | NUR ---
Patient discharged to home in stable condition. Written and verbal after care instructions given. Patient verbalizes understanding of instructions. Stressed follow up or return to ER for worsening s/s.Ambulated out of ER with steady gait.
[2019-08-29 02:45] VITALS: BP 125/80
== END 2019-08-29 02:40 | disposition home or self-care (01) ==
LOC: ER 01:00
DX: K29.70 Gastritis, unspecified, without bleeding (principal); J02.9 Acute pharyngitis, unspecified; F31.9 Bipolar disorder, unspecified; J44.9 Chronic obstructive pulmonary disease, unspecified; K58.9 Irritable bowel syndrome, unspecified
CPT/HCPCS: 74021; 81001; 84703; 96372; 99284; J1170; J2405; A4663

== ENCOUNTER 2019-09-14 23:19 | Emergency (ER) | payer MEDICAID ==
[~2019-09-14] VITALS: Ht 177.8 cm; Wt 74.8 kg
[~2019-09-14 23:19] MED LIST changes: +CITA40TA22 PO
[2019-09-14] MEDS ORDERED: CEPH-570 PO (23:26)
[2019-09-14] MEDS ORDERED: KETOROLAC TROMETHAMINE 15 MG INJ IVP ONE (23:45)
[2019-09-14] MEDS ORDERED: ONDANSETRON 4 MG/2 ML VIAL IV ONE (23:45)
[2019-09-14] MEDS ORDERED: IV NORMAL SALINE 1000 ML BAG IV ONE (23:45)
[2019-09-14] MEDS ORDERED: KETOROLAC TROMETHAMINE 30 MG INJ ONE (23:49)
[2019-09-14] MEDS ORDERED: ONDANSETRON 4 MG/2 ML VIAL ONE (23:49)
[2019-09-14 23:53] LABS: *BILIRUBIN,URIN NEGATIVE (NEGATIVE); *BLOOD, URINE NEGATIVE (NEGATIVE); *CLARITY,URINE CLEAR (CLEAR); *COLOR,URINE YELLOW (YELLOW); *KETONES,URINE NEGATIVE (NEGATIVE); *UROBILINOGEN,URINE 0.2 E.U./dl (NORMAL); BASOPHILS # (AUTO) 0.1 K/uL (0.0-8.0); BASOPHILS % (AUTO) 1.2 % (0.0-2.0); EOSINOPHILS # (AUTO) 0.1 K/uL (0.0-0.7); EOSINOPHILS % (AUTO) 1.6 % (0.0-7.0); HEMOGLOBIN 12.7 g/dL (10.9-14.3); LEUKOCYTE ESTERASE ,URINE NEGATIVE (NEGATIVE); LYMPHOCYTES # (AUTO) 3.2 K/uL (20.0-40.0); LYMPHOCYTES % (AUTO) 34.6 % (20.5-51.5); MEAN CORPUSCULAR HEMOGLOBIN 29.6 uug (24.7-32.8); MEAN CORPUSCULAR HGB CONC 33 g/dL (32.3-35.6); MEAN CORPUSCULAR VOLUME 88.9 fL (75.5-95.3); MONOCYTES # (AUTO) 1.1 K/uL (2.0-10.0); MONOCYTES % (AUTO) 11.4 % (0.0-11.0); NEUTROPHILS # (AUTO) 4.8 K/uL (1.8-8.9); NEUTROPHILS % (AUTO) 51.2 % (38.5-71.5); NITRITE, URINE NEGATIVE (NEGATIVE); PH,URINE 5.5 (5.0-8.0); PLATELET COUNT (AUTO) 251 K/uL (179-408); RED BLOOD CELL COUNT(AUTO) 4.27 MIL/uL (3.63-4.92); UGLUCOSE NEGATIVE (NEGATIVE); WHITE BLOOD COUNT (AUTO) 9.4 K/uL (3.8-11.8)
[2019-09-14 23:54] LABS: CREATININE 1.1 mg/dL (0.6-1.3); POTASSIUM 3.8 mmol/L (3.5-5.1)
[2019-09-14 23:55] LABS: *URINE HCG, QUAL NEGATIVE (NEGATIVE)
[2019-09-15] MEDS ORDERED: MORPHINE SULFATE 4 MG/1 ML DISP.SYRIN IV ONE (00:15)
[2019-09-15] MEDS ORDERED: MORPHINE SULFATE 4 MG/1 ML DISP.SYRIN ONE (00:18)
--- NOTE | 2019-09-15 01:20 | NUR ---
US tech into do ultrasound.
[2019-09-15] MEDS ORDERED: PHENAZOPYRIDINE HCL 100 MG TABLET PO ONE (01:45)
[2019-09-15] MEDS ORDERED: PHENAZOPYRIDINE HCL 100 MG TABLET ONE (01:45)
--- NOTE | 2019-09-15 01:48 | NUR ---
IV removed. Catheter intact and site benign. Pressure and 4x4 gauze applied to site. No bleeding noted.
[2019-09-15 01:54] VITALS: BP 110/77
--- NOTE | 2019-09-15 01:54 | NUR ---
Patient discharged to home in stable condition with family taking patient home. Written and verbal after care instructions given. Patient verbalizes understanding of instructions. Stressed follow up or return to ER for worsening s/s.
== END 2019-09-15 01:55 | disposition home or self-care (01) ==
LOC: ER 23:27
DX: N20.0 Calculus of kidney (principal); R30.0 Dysuria; Z87.440 Personal history of urinary (tract) infections; J44.9 Chronic obstructive pulmonary disease, unspecified; R11.0 Nausea; G89.29 Other chronic pain; M54.9 Dorsalgia, unspecified; F31.9 Bipolar disorder, unspecified; J45.909 Unspecified asthma, uncomplicated; Z79.899 Other long term (current) drug therapy
CPT/HCPCS: 36415; 76770; 80048; 81001; 84703; 85025; 87086; 96361; 96374; 96375; 99284; J1885; J2270; J2405; A4663; J7030

== ENCOUNTER 2019-09-24 02:03 | Emergency (ER) | payer MEDICAID ==
[~2019-09-24] VITALS: Ht 177.8 cm; Wt 74.8 kg
[~2019-09-24 02:03] MED LIST changes: +CEPH-570 PO
[2019-09-24 02:22] LABS: *BILIRUBIN,URIN NEGATIVE (NEGATIVE); *BLOOD, URINE NEGATIVE (NEGATIVE); *CLARITY,URINE CLEAR (CLEAR); *COLOR,URINE Orange (YELLOW); *KETONES,URINE NEGATIVE (NEGATIVE); LEUKOCYTE ESTERASE ,URINE NEGATIVE (NEGATIVE); NITRITE, URINE POSITIVE (NEGATIVE); UGLUCOSE TRACE (NEGATIVE)
[2019-09-24] MEDS ORDERED: SULF1TAB48 PO (02:32)
[2019-09-24] MEDS ORDERED: PHEN-704 PO (02:32)
[2019-09-24] MEDS ORDERED: ACET-2154 PO (02:32)
[2019-09-24] MEDS ORDERED: NITROFURANTOIN/NITROFURAN MAC 100 MG CAPSULE ONE (02:40)
[2019-09-24] MEDS ORDERED: HYDROCODONE/APAP 10-325 MG TABLET ONE (02:40)
[2019-09-24 02:45] LABS: BACTERIA,URINE NONE SEEN /HPF (NONE SEEN); RBC,URINE 0-3 /HPF (0-3); SQUAMOUS EPITHELIAL CELL,UR FEW /HPF (NONE SEEN); WBC,URINE 0-3 /HPF (0-3)
[2019-09-24] MEDS ORDERED: NITROFURANTOIN/NITROFURAN MAC 100 MG CAPSULE PO ONE (02:45)
[2019-09-24] MEDS ORDERED: HYDROCODONE/APAP 10-325 MG TABLET PO ONE (02:45)
[2019-09-24 02:49] LABS: *URINE HCG, QUAL NEGATIVE (NEGATIVE)
[2019-09-24 02:52] VITALS: BP 122/50
--- NOTE | 2019-09-24 02:52 | NUR ---
Patient discharged to home in stable condition. Written and verbal after care instructions given. Patient verbalizes understanding of instructions. Stressed follow up or return to ER for worsening s/s.
== END 2019-09-24 02:53 | disposition home or self-care (01) ==
LOC: ER 02:06
DX: N39.0 Urinary tract infection, site not specified (principal); R11.0 Nausea; Z87.440 Personal history of urinary (tract) infections; Z88.8 Allergy status to other drugs, medicaments and biological substances; F31.9 Bipolar disorder, unspecified; K58.9 Irritable bowel syndrome, unspecified; J44.9 Chronic obstructive pulmonary disease, unspecified; G89.29 Other chronic pain; M54.9 Dorsalgia, unspecified
CPT/HCPCS: 84703; 87086; A4663

== ENCOUNTER 2019-09-27 10:28 | Emergency (ER) | payer MEDICAID ==
[~2019-09-27] VITALS: Ht 177.8 cm; Wt 74.8 kg
[~2019-09-27 10:28] MED LIST changes: +ACET-2154 PO; -CEPH-570 PO; +PHEN-704 PO; +SULF1TAB48 PO
--- NOTE | 2019-09-27 10:41 | NUR ---
Dr. Snyder at bedside for MSE
--- NOTE | 2019-09-27 10:56 | NUR ---
chapperoned md with pelvic exam.
[2019-09-27] MEDS ORDERED: HYDROMORPHONE 2 MG/1 ML DISP.SYRIN ONE (10:58)
[2019-09-27] MEDS ORDERED: ONDANSETRON 4 MG/2 ML VIAL ONE (10:58)
[2019-09-27] MEDS ORDERED: HYDROMORPHONE 1 MG/1 ML DISP.SYRIN IM ONE (11:00)
[2019-09-27] MEDS ORDERED: ONDANSETRON 4 MG/2 ML VIAL IM ONE (11:00)
[2019-09-27 11:09] VITALS: BP 124/71
--- NOTE | 2019-09-27 11:10 | NUR ---
Patient discharged to home in stable condition. Written and verbal after care instructions given. Patient verbalizes understanding of instructions. Stressed follow up or return to ER for worsening s/s. Patient ambulated with steady gait out of ED. Patient's outside of ED to take patient home
== END 2019-09-27 11:10 | disposition home or self-care (01) ==
LOC: ER 10:28
DX: N72 Inflammatory disease of cervix uteri (principal); F25.0 Schizoaffective disorder, bipolar type; Z79.899 Other long term (current) drug therapy; J45.909 Unspecified asthma, uncomplicated; J44.9 Chronic obstructive pulmonary disease, unspecified; K58.9 Irritable bowel syndrome, unspecified; G89.29 Other chronic pain; M54.9 Dorsalgia, unspecified; Z22.4 Carrier of infections with a predominantly sexual mode of transmission
CPT/HCPCS: 96372 ×2; 99284; J1170; J2405; A4663; J7030

== ENCOUNTER 2019-09-29 15:26 | Emergency (ER) | payer MEDICAID ==
[~2019-09-29] VITALS: Ht 167.6 cm; Wt 74.8 kg
[2019-09-29] MEDS ORDERED: IV NORMAL SALINE 1000 ML BAG IV ONE (15:45)
[2019-09-29 16:03] LABS: BASOPHILS # (AUTO) 0.1 K/uL (0.0-8.0); BASOPHILS % (AUTO) 1.2 % (0.0-2.0); EOSINOPHILS # (AUTO) 0.1 K/uL (0.0-0.7); EOSINOPHILS % (AUTO) 0.7 % (0.0-7.0); HEMATOCRIT 34.2 % (31.2-41.9); HEMOGLOBIN 11.1 g/dL (10.9-14.3); LYMPHOCYTES # (AUTO) 2.1 K/uL (20.0-40.0); LYMPHOCYTES % (AUTO) 29.7 % (20.5-51.5); MEAN CORPUSCULAR HGB CONC 33 g/dL (32.3-35.6); MEAN CORPUSCULAR VOLUME 89.2 fL (75.5-95.3); MONOCYTES # (AUTO) 0.7 K/uL (2.0-10.0); MONOCYTES % (AUTO) 9.8 % (0.0-11.0); NEUTROPHILS # (AUTO) 4.1 K/uL (1.8-8.9); NEUTROPHILS % (AUTO) 58.6 % (38.5-71.5); PLATELET COUNT (AUTO) 182 K/uL (179-408); RED BLOOD CELL COUNT(AUTO) 3.84 MIL/uL (3.63-4.92); WHITE BLOOD COUNT (AUTO) 6.9 K/uL (3.8-11.8)
[2019-09-29 16:07] LABS: *BILIRUBIN,URIN NEGATIVE (NEGATIVE); *BLOOD, URINE NEGATIVE (NEGATIVE); *CLARITY,URINE CLEAR (CLEAR); *COLOR,URINE YELLOW (YELLOW); *KETONES,URINE NEGATIVE (NEGATIVE); *UROBILINOGEN,URINE 0.2 E.U./dl (NORMAL); LEUKOCYTE ESTERASE ,URINE NEGATIVE (NEGATIVE); NITRITE, URINE NEGATIVE (NEGATIVE); PH,URINE 6.5 (5.0-8.0); UGLUCOSE NEGATIVE (NEGATIVE)
[2019-09-29 16:07] LABS: CREATININE 0.9 mg/dL (0.6-1.3); POTASSIUM 3.6 mmol/L (3.5-5.1)
[2019-09-29 16:13] LABS: BILIRUBIN,DIRECT 0.1 mg/dL (0.0-0.2); BILIRUBIN,TOTAL 0.3 mg/dL (0.2-1.0); TOTAL PROTEIN, SERUM 6.6 g/dL (6.4-8.2)
--- NOTE | 2019-09-29 17:15 | NUR ---
chaperoned md with pelvic exam. pt tolerated well.
[2019-09-29] MEDS ORDERED: ONDANSETRON 4 MG/2 ML VIAL ONE (17:22)
[2019-09-29] MEDS ORDERED: KETOROLAC TROMETHAMINE 30 MG INJ ONE (17:24)
[2019-09-29] MEDS ORDERED: ONDANSETRON 4 MG/2 ML VIAL IV ONE (17:30)
[2019-09-29] MEDS ORDERED: KETOROLAC TROMETHAMINE 30 MG INJ IVP ONE (17:30)
--- NOTE | 2019-09-29 17:30 | NUR ---
Patient discharged to home in stable condition. Written and verbal after care instructions given. Patient verbalizes understanding of instructions. Stressed follow up or return to ER for worsening s/s.pt walks in steady. pt refused toradol and zofran earlier whne offered by . but at the d/c requested it. md avilesed.
[2019-09-29 17:43] VITALS: BP 119/69
== END 2019-09-29 17:44 | disposition home or self-care (01) ==
LOC: ER 15:26
DX: N20.0 Calculus of kidney (principal); R10.2 Pelvic and perineal pain; J44.9 Chronic obstructive pulmonary disease, unspecified; K58.9 Irritable bowel syndrome, unspecified; I34.1 Nonrheumatic mitral (valve) prolapse; F25.0 Schizoaffective disorder, bipolar type; Z79.899 Other long term (current) drug therapy; Z88.8 Allergy status to other drugs, medicaments and biological substances
CPT/HCPCS: 36415; 74176; 80048; 80076; 81001; 84702; 85025; 87086; 96374; 96375; 99284; J1885; J2405; A4663

== ENCOUNTER 2019-10-15 21:29 | Emergency (ER) | payer MEDICAID ==
[~2019-10-15] VITALS: Ht 177.8 cm; Wt 81.2 kg
--- NOTE | 2019-10-15 21:45 | NUR ---
Dr Lassiter into eval patient.
[2019-10-15] MEDS ORDERED: LORATADINE 10 MG TABLET PO SCH (22:00)
[2019-10-15] MEDS ORDERED: HYDROCODONE/APAP 10-325 MG TABLET PO ONE (22:00)
[2019-10-15] MEDS ORDERED: predniSONE 20 MG TABLET PO ONE (22:00)
[2019-10-15] MEDS ORDERED: ONDANSETRON ODT 4 MG TAB.RAPDIS SL ONE (22:00)
[2019-10-15] MEDS ORDERED: SULFAMETH/TRIMETH 800/160 MG TABLET PO ONE (22:00)
[2019-10-15] MEDS ORDERED: HYDROCODONE/APAP 10-325 MG TABLET ONE (22:01)
[2019-10-15] MEDS ORDERED: ONDANSETRON ODT 4 MG TAB.RAPDIS ONE (22:01)
[2019-10-15] MEDS ORDERED: LORATADINE 10 MG TABLET ONE (22:01)
[2019-10-15] MEDS ORDERED: predniSONE 50 MG TABLET ONE (22:02)
[2019-10-15] MEDS ORDERED: predniSONE 10 MG TABLET ONE (22:02)
[2019-10-15] MEDS ORDERED: SULFAMETH/TRIMETH 800/160 MG TABLET ONE (22:02)
[2019-10-15 22:31] VITALS: BP 120/70
== END 2019-10-15 22:32 | disposition home or self-care (01) ==
LOC: ER 21:30
DX: J40 Bronchitis, not specified as acute or chronic (principal); R51 Headache; J02.9 Acute pharyngitis, unspecified; Z20.828 Contact with and (suspected) exposure to other viral communicable diseases; Z88.8 Allergy status to other drugs, medicaments and biological substances; J44.9 Chronic obstructive pulmonary disease, unspecified; F17.200 Nicotine dependence, unspecified, uncomplicated; F25.0 Schizoaffective disorder, bipolar type
CPT/HCPCS: 99284; J7512 ×2; U0003; A4663; Q0162

== ENCOUNTER 2019-10-21 22:15 | Emergency (ER) | payer SELFPAY ==
[~2019-10-21 22:15] MED LIST changes: -OMEP20CA15 PO; -PHEN-704 PO; -SULF1TAB48 PO
--- NOTE | 2019-10-21 22:58 | NUR ---
Patient left without being seen or traiged.
== END 2019-10-21 23:23 | disposition left against medical advice (07) ==
LOC: ER 22:17
DX: Z75.3 Unavailability and inaccessibility of health-care facilities (principal)

== ENCOUNTER 2019-10-23 20:45 | Emergency (ER) | payer MEDICAID ==
[~2019-10-23] VITALS: Ht 177.8 cm; Wt 82.1 kg
[2019-10-23 21:27] LABS: BASOPHILS # (AUTO) 0.1 K/uL (0.0-8.0); BASOPHILS % (AUTO) 1.2 % (0.0-2.0); EOSINOPHILS # (AUTO) 0.2 K/uL (0.0-0.7); EOSINOPHILS % (AUTO) 1.9 % (0.0-7.0); HEMATOCRIT 39.5 % (31.2-41.9); HEMOGLOBIN 13.2 g/dL (10.9-14.3); LYMPHOCYTES # (AUTO) 3.6 K/uL (20.0-40.0); LYMPHOCYTES % (AUTO) 35.4 % (20.5-51.5); MEAN CORPUSCULAR HEMOGLOBIN 29.9 uug (24.7-32.8); MEAN CORPUSCULAR HGB CONC 33 g/dL (32.3-35.6); MEAN CORPUSCULAR VOLUME 89.3 fL (75.5-95.3); MONOCYTES % (AUTO) 10.4 % (0.0-11.0); NEUTROPHILS # (AUTO) 5.1 K/uL (1.8-8.9); NEUTROPHILS % (AUTO) 51.1 % (38.5-71.5); PLATELET COUNT (AUTO) 227 K/uL (179-408); RED BLOOD CELL COUNT(AUTO) 4.42 MIL/uL (3.63-4.92); WHITE BLOOD COUNT (AUTO) 10.1 K/uL (3.8-11.8)
[2019-10-23 21:31] LABS: CARBON DIOXIDE 29 mmol/L (21-32); CHLORIDE 103 mmol/L (98-107); GLUCOSE 95 mg/dL (74-106); POTASSIUM 4.3 mmol/L (3.5-5.1); UREA NITROGEN, BLOOD 20 mg/dL (7-18)
[2019-10-23 21:37] LABS: ALANINE AMINOTRANSFERASE 17 U/L (14-59); ALKALINE PHOSPHATASE 57 U/L (50-136); ASPARTATE AMINOTRANSFERASE 14 U/L (15-37); BILIRUBIN,DIRECT 0.1 mg/dL (0.0-0.2); BILIRUBIN,TOTAL 0.2 mg/dL (0.2-1.0); LIPASE 141 U/L (73-393); TOTAL PROTEIN, SERUM 6.5 g/dL (6.4-8.2)
--- NOTE | 2019-10-23 21:51 | NUR ---
ERMD at bedside with KASH Greco for rectal exam.
[2019-10-23 22:03] LABS: *OCCULT BLOOD STOOL NEGATIVE (NEGATIVE)
[2019-10-23] MEDS ORDERED: LIDOCAINE VISCUS 2% 15 ML UDC ONE (22:05)
[2019-10-23] MEDS ORDERED: FAMOTIDINE 20 MG TABLET ONE (22:05)
[2019-10-23] MEDS ORDERED: MAG HYDROX/AL HYDROX/SIMETH 30 ML LIQUID UDC ONE (22:05)
[2019-10-23] MEDS ORDERED: DICYCLOMINE HCL LIQ 10 MG/5 ML UDC ONE (22:14)
[2019-10-23] MEDS ORDERED: FAMOTIDINE 20 MG TABLET PO ONE (22:15)
[2019-10-23] MEDS ORDERED: MAG HYDROX/AL HYDROX/SIMETH 30 ML LIQUID UDC PO ONE (22:15)
[2019-10-23] MEDS ORDERED: DICYCLOMINE HCL LIQ 10 MG/5 ML UDC PO ONE (22:15)
[2019-10-23] MEDS ORDERED: LIDOCAINE VISCUS 2% 15 ML UDC MM ONE (22:15)
[2019-10-23] MEDS ORDERED: ONDANSETRON ODT 4 MG TAB.RAPDIS SL ONE (23:45)
[2019-10-23] MEDS ORDERED: ONDANSETRON ODT 4 MG TAB.RAPDIS ONE (23:45)
[2019-10-23 23:48] VITALS: BP 121/75
--- NOTE | 2019-10-23 23:48 | NUR ---
Patient discharged to home in stable condition. Written and verbal after care instructions given. Patient verbalizes understanding of instructions. Stressed follow up or return to ER for worsening s/s. Patient ambulated with stable gait.
== END 2019-10-23 23:50 | disposition home or self-care (01) ==
LOC: ER 20:45
DX: R10.10 Upper abdominal pain, unspecified (principal); R11.0 Nausea; N20.0 Calculus of kidney; Z88.8 Allergy status to other drugs, medicaments and biological substances; F25.0 Schizoaffective disorder, bipolar type; J45.909 Unspecified asthma, uncomplicated; Z79.899 Other long term (current) drug therapy
CPT/HCPCS: 36415; 83690; 85025; A4663; Q0162

== ENCOUNTER 2019-10-30 02:35 | Emergency (ER) | payer MEDICAID ==
[~2019-10-30] VITALS: Ht 177.8 cm; Wt 82.1 kg
--- NOTE | 2019-10-30 02:48 | NUR ---
DR Lassiter into eval patient.
[2019-10-30 02:57] VITALS: BP 118/79
[2019-10-30] MEDS ORDERED: DOXYCYCLINE HYCLATE 100 MG TABLET ONE (02:57)
[2019-10-30] MEDS ORDERED: DOXYCYCLINE HYCLATE 100 MG TABLET PO ONE (03:00)
== END 2019-10-30 02:58 | disposition home or self-care (01) ==
LOC: ER 02:38
DX: L73.9 Follicular disorder, unspecified (principal); F17.200 Nicotine dependence, unspecified, uncomplicated; I34.1 Nonrheumatic mitral (valve) prolapse; J44.9 Chronic obstructive pulmonary disease, unspecified; K58.9 Irritable bowel syndrome, unspecified; F25.0 Schizoaffective disorder, bipolar type; G89.29 Other chronic pain; Z79.899 Other long term (current) drug therapy; Z88.8 Allergy status to other drugs, medicaments and biological substances
CPT/HCPCS: A4663

== ENCOUNTER 2019-11-11 19:11 | Emergency (ER) | payer MEDICAID ==
[~2019-11-11] VITALS: Ht 177.8 cm; Wt 81.6 kg
--- NOTE | 2019-11-11 19:50 | NUR ---
DR. SHANNON AT BEDSIDE FOR MSE.
[2019-11-11] MEDS: LORAZEPAM 0.5 MG TABLET PO ONE (19:55)
[2019-11-11 19:56] VITALS: BP 123/88
--- NOTE | 2019-11-11 19:56 | NUR ---
Patient discharged to home in stable condition. Written and verbal after care instructions given. Patient verbalizes understanding of instructions. Stressed follow up or return to ER for worsening s/s. PATIENT ACCOMPANIED BY WHO IS HER DIE MOUNTER.
[2019-11-11] MEDS ORDERED: LORAZEPAM 1 MG TABLET ONE (19:57)
== END 2019-11-11 19:57 | disposition home or self-care (01) ==
LOC: ER 19:12
DX: F41.9 Anxiety disorder, unspecified (principal); F31.9 Bipolar disorder, unspecified; Z79.899 Other long term (current) drug therapy; J44.9 Chronic obstructive pulmonary disease, unspecified; Z91.5 Personal history of self-harm; K58.9 Irritable bowel syndrome, unspecified; I34.1 Nonrheumatic mitral (valve) prolapse; Z88.8 Allergy status to other drugs, medicaments and biological substances
CPT/HCPCS: A4663

== ENCOUNTER 2019-12-04 16:35 | Emergency (ER) | payer MEDICAID ==
[~2019-12-04] VITALS: Ht 177.8 cm; Wt 81.6 kg
--- NOTE | 2019-12-04 16:52 | NUR ---
pt is in room #2a. dr Snyder evaluated the pt.
[2019-12-04] MEDS ORDERED: ONDANSETRON 4 MG/2 ML VIAL IM ONE (17:00)
[2019-12-04] MEDS ORDERED: HYDROMORPHONE 1 MG/1 ML DISP.SYRIN IM ONE (17:00)
[2019-12-04] MEDS ORDERED: ONDANSETRON 4 MG/2 ML VIAL ONE (17:01)
[2019-12-04] MEDS ORDERED: HYDROMORPHONE 2 MG/1 ML DISP.SYRIN ONE (17:01)
--- NOTE | 2019-12-04 17:01 | NUR ---
PT WAS D/C'd TO HOME. D/C INSTRUCTIONS GIVEN TO THE PT.
[2019-12-04 17:02] VITALS: BP 136/78
== END 2019-12-04 17:04 | disposition home or self-care (01) ==
LOC: ER 16:35
DX: G89.29 Other chronic pain (principal); M51.17 Intervertebral disc disorders with radiculopathy, lumbosacral region; J44.9 Chronic obstructive pulmonary disease, unspecified; F25.0 Schizoaffective disorder, bipolar type; Z91.5 Personal history of self-harm; K58.9 Irritable bowel syndrome, unspecified; I34.1 Nonrheumatic mitral (valve) prolapse; Z79.899 Other long term (current) drug therapy
CPT/HCPCS: 96372 ×2; 99284; J1170; J2405; A4663

== ENCOUNTER 2019-12-05 15:55 | Emergency (ER) | payer MEDICAID ==
[~2019-12-05] VITALS: Ht 177.8 cm; Wt 81.6 kg
--- NOTE | 2019-12-05 15:55 | NUR ---
Dr. Schaefer at bedside for MSE
[2019-12-05] MEDS ORDERED: IV NORMAL SALINE 1000 ML BAG IV ONE (16:00)
[2019-12-05 16:18] LABS: BASOPHILS # (AUTO) 0.1 K/uL (0.0-8.0); EOSINOPHILS # (AUTO) 0.1 K/uL (0.0-0.7); EOSINOPHILS % (AUTO) 0.9 % (0.0-7.0); HEMATOCRIT 37.5 % (31.2-41.9); HEMOGLOBIN 12.4 g/dL (10.9-14.3); LYMPHOCYTES # (AUTO) 1.7 K/uL (20.0-40.0); MEAN CORPUSCULAR HEMOGLOBIN 29.5 uug (24.7-32.8); MEAN CORPUSCULAR HGB CONC 33 g/dL (32.3-35.6); MEAN CORPUSCULAR VOLUME 89.3 fL (75.5-95.3); MONOCYTES % (AUTO) 7.8 % (0.0-11.0); NEUTROPHILS # (AUTO) 10.3 K/uL (1.8-8.9); NEUTROPHILS % (AUTO) 77.3 % (38.5-71.5); PLATELET COUNT (AUTO) 218 K/uL (179-408); WHITE BLOOD COUNT (AUTO) 13.3 K/uL (3.8-11.8)
[2019-12-05 16:26] LABS: CARBON DIOXIDE 29 mmol/L (21-32); CHLORIDE 103 mmol/L (98-107); CREATININE 1.1 mg/dL (0.6-1.3); GLUCOSE 112 mg/dL (74-106); POTASSIUM 4.5 mmol/L (3.5-5.1); UREA NITROGEN, BLOOD 18 mg/dL (7-18)
--- NOTE | 2019-12-05 16:29 | NUR ---
Patient taken to CT scan via rjyothi
[2019-12-05 16:31] LABS: ACETAMINOPHEN 9.1 ug/mL (10-30); ALANINE AMINOTRANSFERASE 50 U/L (14-59); ALKALINE PHOSPHATASE 48 U/L (50-136); ASPARTATE AMINOTRANSFERASE 66 U/L (15-37); BILIRUBIN,DIRECT 0.1 mg/dL (0.0-0.2); BILIRUBIN,TOTAL 0.5 mg/dL (0.2-1.0)
[2019-12-05 16:33] LABS: ETHANOL < 3 MG/DL (0-0)
[2019-12-05 16:35] LABS: *BILIRUBIN,URIN NEGATIVE (NEGATIVE); *BLOOD, URINE 1+ (NEGATIVE); *CLARITY,URINE CLEAR (CLEAR); *COLOR,URINE YELLOW (YELLOW); *KETONES,URINE NEGATIVE (NEGATIVE); *UROBILINOGEN,URINE 0.2 E.U./dl (NORMAL); LEUKOCYTE ESTERASE ,URINE NEGATIVE (NEGATIVE); NITRITE, URINE NEGATIVE (NEGATIVE); UGLUCOSE NEGATIVE (NEGATIVE)
[2019-12-05 16:36] LABS: *URINE HCG, QUAL NEG (NEGATIVE)
[2019-12-05 16:45] LABS: *AMPHETAMINE, URINE NEGATIVE (NEGATIVE); *CANNABINOID, URINE POSITIVE (NEGATIVE); *COCCAINE, URINE NEGATIVE (NEGATIVE); *OPIATE, URINE POSITIVE (NEGATIVE); *PHENCYCLIDINE SCREEN,URINE NEGATIVE (NEGATIVE)
--- NOTE | 2019-12-05 16:51 | NUR ---
Patient back from CT scan
--- NOTE | 2019-12-05 18:32 | NUR ---
IV removed. Catheter intact and site benign. Pressure and 4x4 gauze applied to site. No bleeding noted. Patient discharged to home in stable condition. Written and verbal after care instructions given. Patient verbalizes understanding of instructions. Stressed follow up or return to ER for worsening s/s. Patient ambulated with steady gait. NAD noted. Patient's out of ED to take patient home
[2019-12-05 18:35] VITALS: BP 133/103
[2019-12-05 18:40] LABS: BACTERIA,URINE FEW /HPF (NONE SEEN); SQUAMOUS EPITHELIAL CELL,UR FEW /HPF (NONE SEEN); WBC,URINE 0-3 /HPF (0-3)
== END 2019-12-05 18:32 | disposition home or self-care (01) ==
LOC: ER 15:55
DX: R55 Syncope and collapse (principal); F17.210 Nicotine dependence, cigarettes, uncomplicated; F19.90 Other psychoactive substance use, unspecified, uncomplicated; R03.0 Elevated blood-pressure reading, without diagnosis of hypertension; G89.29 Other chronic pain; M51.17 Intervertebral disc disorders with radiculopathy, lumbosacral region; J44.9 Chronic obstructive pulmonary disease, unspecified; K58.9 Irritable bowel syndrome, unspecified; F25.0 Schizoaffective disorder, bipolar type; Z91.5 Personal history of self-harm; Z79.899 Other long term (current) drug therapy; D72.829 Elevated white blood cell count, unspecified; R74.01 Elevation of levels of liver transaminase levels; T40.605A Adverse effect of unspecified narcotics, initial encounter; T42.4X5A Adverse effect of benzodiazepines, initial encounter; Y92.019 Unspecified place in single-family (private) house as the place of occurrence of the external cause
CPT/HCPCS: 36415; 70030-TC; 70450; 71045; 84703; 85025; 93005; A4663; G0480; J7030

== ENCOUNTER 2019-12-08 10:35 | Emergency (ER) | payer MEDICAID ==
[~2019-12-08] VITALS: Ht 177.8 cm; Wt 81.6 kg
[2019-12-08] MEDS ORDERED: KETOROLAC TROMETHAMINE 15 MG INJ IVP ONE (10:45)
[2019-12-08] MEDS ORDERED: IV NORMAL SALINE 1000 ML BAG IV ONE (10:45)
[2019-12-08] MEDS ORDERED: ONDANSETRON 4 MG/2 ML VIAL IV ONE (10:45)
[2019-12-08 11:14] LABS: BASOPHILS # (AUTO) 0.1 K/uL (0.0-8.0); BASOPHILS % (AUTO) 0.9 % (0.0-2.0); EOSINOPHILS # (AUTO) 0.3 K/uL (0.0-0.7); EOSINOPHILS % (AUTO) 2.9 % (0.0-7.0); HEMATOCRIT 39.6 % (31.2-41.9); HEMOGLOBIN 13.2 g/dL (10.9-14.3); LYMPHOCYTES # (AUTO) 1.4 K/uL (20.0-40.0); LYMPHOCYTES % (AUTO) 15.3 % (20.5-51.5); MEAN CORPUSCULAR HEMOGLOBIN 29.9 uug (24.7-32.8); MEAN CORPUSCULAR HGB CONC 33 g/dL (32.3-35.6); MEAN CORPUSCULAR VOLUME 89.3 fL (75.5-95.3); MONOCYTES # (AUTO) 0.7 K/uL (2.0-10.0); MONOCYTES % (AUTO) 7.1 % (0.0-11.0); NEUTROPHILS % (AUTO) 73.8 % (38.5-71.5); PLATELET COUNT (AUTO) 242 K/uL (179-408); RED BLOOD CELL COUNT(AUTO) 4.43 MIL/uL (3.63-4.92); WHITE BLOOD COUNT (AUTO) 9.4 K/uL (3.8-11.8)
[2019-12-08 11:15] LABS: CREATININE 0.9 mg/dL (0.6-1.3); POTASSIUM 3.9 mmol/L (3.5-5.1)
[2019-12-08 11:16] LABS: *URINE HCG, QUAL NEG (NEGATIVE)
[2019-12-08 11:17] LABS: *BILIRUBIN,URIN NEGATIVE (NEGATIVE); *BLOOD, URINE NEGATIVE (NEGATIVE); *CLARITY,URINE SLIGHTLY CLOUDY (CLEAR); *COLOR,URINE YELLOW (YELLOW); *KETONES,URINE TRACE (NEGATIVE); *UROBILINOGEN,URINE 0.2 E.U./dl (NORMAL); LEUKOCYTE ESTERASE ,URINE NEGATIVE (NEGATIVE); NITRITE, URINE NEGATIVE (NEGATIVE); UGLUCOSE NEGATIVE (NEGATIVE)
[2019-12-08] MEDS ORDERED: KETOROLAC TROMETHAMINE 30 MG INJ ONE (11:17)
[2019-12-08] MEDS ORDERED: ONDANSETRON 4 MG/2 ML VIAL ONE (11:17)
[2019-12-08 11:26] LABS: BILIRUBIN,DIRECT 0.1 mg/dL (0.0-0.2); BILIRUBIN,TOTAL 0.4 mg/dL (0.2-1.0); TOTAL PROTEIN, SERUM 6.4 g/dL (6.4-8.2)
--- NOTE | 2019-12-08 11:59 | NUR ---
PT WAS EVALUATED BY DR VENCES. PT WAS D/C'd TO HOME. D/C INSTRUCTIONS GIVEN TO THE PT BY DR VENCES.
[2019-12-08 12:00] VITALS: BP 134/75
[2019-12-08 15:48] LABS: RBC,URINE 0-3 /HPF (0-3)
[2019-12-08 15:49] LABS: BACTERIA,URINE FEW /HPF (NONE SEEN)
[2019-12-08 15:50] LABS: SQUAMOUS EPITHELIAL CELL,UR FEW /HPF (NONE SEEN)
== END 2019-12-08 12:01 | disposition home or self-care (01) ==
LOC: ER 10:35
DX: R10.9 Unspecified abdominal pain (principal); G89.29 Other chronic pain; M54.5 Low back pain; J44.9 Chronic obstructive pulmonary disease, unspecified; K58.9 Irritable bowel syndrome, unspecified; F25.0 Schizoaffective disorder, bipolar type; Z91.5 Personal history of self-harm; I34.1 Nonrheumatic mitral (valve) prolapse; Z88.8 Allergy status to other drugs, medicaments and biological substances; Z79.899 Other long term (current) drug therapy; R79.89 Other specified abnormal findings of blood chemistry
CPT/HCPCS: 36415; 80048; 80076; 81001; 83690; 84703; 85025; 87086; 96374; 96375; 99284; J1885; J2405; A4663; J7030

== ENCOUNTER 2020-02-04 19:24 | Emergency (ER) | payer MEDICAID ==
[~2020-02-04] VITALS: Ht 177.8 cm; Wt 79.4 kg
[2020-02-04] MEDS ORDERED: KETOROLAC TROMETHAMINE 30 MG INJ ONE (19:44)
[2020-02-04] MEDS ORDERED: DEXAMETHASONE SOD PHOSPHATE 10 MG INJ ONE (19:44)
[2020-02-04] MEDS ORDERED: KETOROLAC TROMETHAMINE 30 MG INJ IM ONE (19:45)
[2020-02-04] MEDS ORDERED: DEXAMETHASONE SOD PHOSPHATE 4 MG INJ IM ONE (19:45)
[2020-02-05] MEDS ORDERED: OLAN20TA3 PO (17:17)
== END 2020-02-04 19:50 | disposition home or self-care (01) ==
LOC: ER 19:25
DX: M54.41 Lumbago with sciatica, right side (principal); F41.0 Panic disorder [episodic paroxysmal anxiety]; Z88.8 Allergy status to other drugs, medicaments and biological substances; K58.9 Irritable bowel syndrome, unspecified; J44.9 Chronic obstructive pulmonary disease, unspecified; Z91.5 Personal history of self-harm; F25.0 Schizoaffective disorder, bipolar type; Z79.899 Other long term (current) drug therapy
CPT/HCPCS: 96372 ×2; 99284; J1100; J1885; A4663

== ENCOUNTER 2020-02-05 16:14 | Emergency (ER) | payer MEDICAID ==
[~2020-02-05] VITALS: Ht 177.8 cm; Wt 81.6 kg
[2020-02-05] MEDS ORDERED: OLAN20TA3 PO (17:17)
[2020-02-05] MEDS ORDERED: ONDANSETRON 4 MG/2 ML VIAL IM ONE (17:30)
[2020-02-05] MEDS ORDERED: ONDANSETRON 4 MG/2 ML VIAL ONE (17:38)
--- NOTE | 2020-02-05 17:38 | NUR ---
PT IS IN HALLWAY IN WHEEL CHAIR. DR MCFADDEN EVALUATED THE PT.
[2020-02-05] MEDS ORDERED: diphenhydrAMINE 50 MG/1 ML VIAL IM ONE (18:00)
[2020-02-05] MEDS ORDERED: METOCLOPRAMIDE HCL 10 MG/2 ML VIAL IM ONE (18:00)
[2020-02-05 18:01] LABS: BASOPHILS % (AUTO) 0.3 % (0.0-2.0); EOSINOPHILS % (AUTO) 0.2 % (0.0-7.0); HEMATOCRIT 42.2 % (31.2-41.9); HEMOGLOBIN 13.8 g/dL (10.9-14.3); LYMPHOCYTES # (AUTO) 2.8 K/uL (20.0-40.0); LYMPHOCYTES % (AUTO) 20.8 % (20.5-51.5); MEAN CORPUSCULAR HEMOGLOBIN 29.8 uug (24.7-32.8); MEAN CORPUSCULAR HGB CONC 33 g/dL (32.3-35.6); MEAN CORPUSCULAR VOLUME 91.2 fL (75.5-95.3); MONOCYTES # (AUTO) 1.3 K/uL (2.0-10.0); MONOCYTES % (AUTO) 9.8 % (0.0-11.0); NEUTROPHILS # (AUTO) 9.1 K/uL (1.8-8.9); NEUTROPHILS % (AUTO) 68.9 % (38.5-71.5); PLATELET COUNT (AUTO) 288 K/uL (179-408); RED BLOOD CELL COUNT(AUTO) 4.62 MIL/uL (3.63-4.92); WHITE BLOOD COUNT (AUTO) 13.3 K/uL (3.8-11.8)
[2020-02-05] MEDS ORDERED: METOCLOPRAMIDE HCL 10 MG/2 ML VIAL ONE (18:06)
[2020-02-05] MEDS ORDERED: diphenhydrAMINE 50 MG/1 ML VIAL ONE (18:06)
[2020-02-05 18:13] LABS: CARBON DIOXIDE 25 mmol/L (21-32); CHLORIDE 104 mmol/L (98-107); GLUCOSE 121 mg/dL (74-106); POTASSIUM 3.6 mmol/L (3.5-5.1); UREA NITROGEN, BLOOD 12 mg/dL (7-18)
[2020-02-05] MEDS ORDERED: KETOROLAC TROMETHAMINE 30 MG INJ IM ONE (18:15)
[2020-02-05 18:19] LABS: ALANINE AMINOTRANSFERASE 22 U/L (14-59); ALKALINE PHOSPHATASE 59 U/L (50-136); ASPARTATE AMINOTRANSFERASE 14 U/L (15-37); BILIRUBIN,DIRECT < 0.1 mg/dL (0.0-0.2); BILIRUBIN,TOTAL 0.1 mg/dL (0.2-1.0); TOTAL PROTEIN, SERUM 7.6 g/dL (6.4-8.2)
--- NOTE | 2020-02-05 18:48 | NUR ---
PT WAS D/C'd TO HOME. D/C INSTRUCTIONS GIVEN TO THE PT BY DR MCFADDEN.
[2020-02-05 18:52] VITALS: BP 142/88
== END 2020-02-05 18:53 | disposition home or self-care (01) ==
LOC: ER 16:14
DX: R51.9 Headache, unspecified (principal); F25.0 Schizoaffective disorder, bipolar type; J44.9 Chronic obstructive pulmonary disease, unspecified; Z91.5 Personal history of self-harm; K58.9 Irritable bowel syndrome, unspecified; Z88.8 Allergy status to other drugs, medicaments and biological substances; Z79.899 Other long term (current) drug therapy; D72.829 Elevated white blood cell count, unspecified
CPT/HCPCS: 36415; 70450; 80048; 80076; 85025; 96372 ×2; 99284; J1200; J2405; J2765; A4663

== ENCOUNTER 2020-02-23 07:44 | Emergency (ER) | payer MEDICAID ==
[~2020-02-23] VITALS: Ht 177.8 cm; Wt 81.6 kg
[~2020-02-23 07:44] MED LIST changes: -OLAN15TA3 PO; +OLAN20TA3 PO
--- NOTE | 2020-02-23 07:55 | NUR ---
PT IS IN ROOM #1A. DR MANZANO EVALUATED THE PT.
[2020-02-23] MEDS ORDERED: DEXAMETHASONE SOD PHOSPHATE 10 MG INJ ONE (08:15)
[2020-02-23] MEDS ORDERED: DEXAMETHASONE SOD PHOSPHATE 4 MG INJ IM ONE (08:15)
--- NOTE | 2020-02-23 08:30 | NUR ---
PT WAS D/C'd TO HOME. D/C INSTRUCTIONS GIVEN TO THE PT.
[2020-02-23 08:31] VITALS: BP 136/81
== END 2020-02-23 08:32 | disposition home or self-care (01) ==
LOC: ER 07:44
DX: J02.8 Acute pharyngitis due to other specified organisms (principal); Z20.822 Contact with and (suspected) exposure to COVID-19; Z88.8 Allergy status to other drugs, medicaments and biological substances; F25.0 Schizoaffective disorder, bipolar type; J44.9 Chronic obstructive pulmonary disease, unspecified; K58.9 Irritable bowel syndrome, unspecified; I34.1 Nonrheumatic mitral (valve) prolapse; Z79.899 Other long term (current) drug therapy
CPT/HCPCS: 96372; 99283; J1100; U0003; A4663

== ENCOUNTER 2020-02-29 19:18 | Emergency (ER) | payer MEDICAID ==
[~2020-02-29] VITALS: Ht 177.8 cm; Wt 49.9 kg
[2020-02-29] MEDS ORDERED: ESCI10TA PO (20:05)
[2020-02-29] MEDS ORDERED: METH500T PO (20:06)
--- NOTE | 2020-02-29 20:15 | NUR ---
Dr. Barron at bedside for MSE.
[2020-02-29] MEDS ORDERED: ALBUTEROL SULFATE 8 GM HFA.AER.AD IH PRN (20:30)
--- NOTE | 2020-02-29 20:42 | NUR ---
Xray at bedside.
[2020-02-29] MEDS ORDERED: BENZONATATE 100 MG CAPSULE PO ONE (20:45)
[2020-02-29] MEDS ORDERED: BENZONATATE 100 MG CAPSULE ONE (20:55)
[2020-02-29] MEDS ORDERED: CEFTRIAXONE 1 G VIAL IM ONE (21:15)
[2020-02-29] MEDS ORDERED: levoFLOXacin 750 MG TABLET PO ONE (21:15)
[2020-02-29] MEDS ORDERED: HYDROCODONE/APAP 10-325 MG TABLET PO ONE (21:15)
[2020-02-29] MEDS ORDERED: CEFTRIAXONE 1 G VIAL ONE (21:24)
[2020-02-29] MEDS ORDERED: levoFLOXacin 750 MG TABLET ONE (21:25)
[2020-02-29] MEDS ORDERED: LIDOCAINE HCL 1% 20 ML VIAL ONE (21:25)
[2020-02-29] MEDS ORDERED: HYDROCODONE/APAP 10-325 MG TABLET ONE (21:31)
--- NOTE | 2020-02-29 21:38 | NUR ---
Patient discharged to home in stable condition. Written and verbal after care instructions given. Patient verbalizes understanding of instructions. Stressed follow up or return to ER for worsening s/s. Patient out of ER with steady gait, no acute signs of distress, VSS, all belongings taken, provided with copies of lab and xray results, and CD, instructed not to drive, to be driven home by via private vehicle.
[2020-02-29 21:40] VITALS: BP 131/91
== END 2020-02-29 21:41 | disposition home or self-care (01) ==
LOC: ER 19:21
DX: J18.9 Pneumonia, unspecified organism (principal); J44.0 Chronic obstructive pulmonary disease with (acute) lower respiratory infection; Z20.822 Contact with and (suspected) exposure to COVID-19; J02.9 Acute pharyngitis, unspecified; H92.02 Otalgia, left ear; R03.0 Elevated blood-pressure reading, without diagnosis of hypertension; K58.9 Irritable bowel syndrome, unspecified; I34.1 Nonrheumatic mitral (valve) prolapse; F25.0 Schizoaffective disorder, bipolar type; Z91.5 Personal history of self-harm; Z79.899 Other long term (current) drug therapy; F17.200 Nicotine dependence, unspecified, uncomplicated
CPT/HCPCS: 71045; 86403; A4663; J0696; J3490; J3535; U0003

== ENCOUNTER 2020-03-04 06:27 | Emergency (ER) | payer MEDICAID ==
[~2020-03-04] VITALS: Ht 177.8 cm; Wt 77.1 kg
[~2020-03-04 06:27] MED LIST changes: -CITA40TA22 PO; +ESCI10TA PO; +METH500T PO
--- NOTE | 2020-03-04 06:43 | NUR ---
at bedside for assessment
--- NOTE | 2020-03-04 07:06 | NUR ---
Patient discharged to home in stable condition. Able to ambulate with steady gait. took all belongings. Rx given. Written and verbal after care instructions given. Patient verbalizes understanding of instructions. Stressed follow up or return to ER for worsening s/s.
[2020-03-04 07:07] VITALS: BP 119/87
== END 2020-03-04 07:08 | disposition home or self-care (01) ==
LOC: ER 06:31
DX: J20.9 Acute bronchitis, unspecified (principal); J44.0 Chronic obstructive pulmonary disease with (acute) lower respiratory infection; Z88.8 Allergy status to other drugs, medicaments and biological substances; K58.9 Irritable bowel syndrome, unspecified; F25.0 Schizoaffective disorder, bipolar type; Z91.5 Personal history of self-harm; I34.1 Nonrheumatic mitral (valve) prolapse; Z79.899 Other long term (current) drug therapy; R03.0 Elevated blood-pressure reading, without diagnosis of hypertension; F17.200 Nicotine dependence, unspecified, uncomplicated
CPT/HCPCS: A4663

== ENCOUNTER 2020-04-14 13:35 | Emergency (ER) | payer MEDICAID ==
[~2020-04-14] VITALS: Ht 177.8 cm; Wt 77.1 kg
[2020-04-14] MEDS: ACETAMINOPHEN/CODEINE 300-30 MG TABLET PO ONE ×2 (14:15→14:34)
[2020-04-14] MEDS ORDERED: KETOROLAC TROMETHAMINE 30 MG INJ IM ONE (14:15)
[2020-04-14] MEDS: ACETAMINOPHEN 325 MG TABLET PO ONE ×2 (14:15→14:34)
[2020-04-14] MEDS ORDERED: DEXAMETHASONE SOD PHOSPHATE 4 MG INJ IM ONE (14:15)
[2020-04-14] MEDS ORDERED: LIDOCAINE 5% PATCH TD ONE ×2 (14:15→14:32)
[2020-04-14 14:21] LABS: *URINE HCG, QUAL NEGATIVE (NEGATIVE)
[2020-04-14] MEDS ORDERED: ACETAMINOPHEN/CODEINE 300-30 MG TABLET ONE ×2 (14:27→15:19)
[2020-04-14] MEDS ORDERED: ACETAMINOPHEN 325 MG TABLET ONE (14:27)
[2020-04-14 14:31] LABS: *AMPHETAMINE, URINE NEGATIVE (NEGATIVE); *CANNABINOID, URINE POSITIVE (NEGATIVE); *COCCAINE, URINE NEGATIVE (NEGATIVE); *OPIATE, URINE NEGATIVE (NEGATIVE); *PHENCYCLIDINE SCREEN,URINE NEGATIVE (NEGATIVE)
[2020-04-14] MEDS ORDERED: DEXAMETHASONE SOD PHOSPHATE 10 MG INJ ONE (14:32)
[2020-04-14] MEDS ORDERED: KETOROLAC TROMETHAMINE 30 MG INJ ONE (14:32)
[2020-04-14] MEDS ORDERED: LIDO30AD10 TD ×2 (15:07→15:19)
[2020-04-14] MEDS ORDERED: IBUP-1955 PO ×2 (15:07→15:19)
--- NOTE | 2020-04-14 15:10 | NUR ---
Patient discharged to home in stable condition. Written and verbal after care instructions given. Patient verbalizes understanding of instructions. Stressed follow up or return to ER for worsening s/s.PT WALKS IN STEADY GAIT.
[2020-04-14] MEDS ORDERED: CYCL10TA9 PO (15:19)
[2020-04-14] MEDS ORDERED: ACET1TAB23 PO (15:19)
== END 2020-04-14 15:10 | disposition home or self-care (01) ==
LOC: ER 13:35
DX: M54.41 Lumbago with sciatica, right side (principal); F17.210 Nicotine dependence, cigarettes, uncomplicated; J44.9 Chronic obstructive pulmonary disease, unspecified; K58.9 Irritable bowel syndrome, unspecified; F25.0 Schizoaffective disorder, bipolar type; Z79.899 Other long term (current) drug therapy
CPT/HCPCS: 80307; 84703; 96372 ×2; 99284; J1100; J1885; A4663

== ENCOUNTER 2024-03-12 15:58 | Emergency (ER) | payer MEDICAID ==
[~2024-03-12] VITALS: Ht 177.8 cm; Wt 65.8 kg
[~2024-03-12 15:58] MED LIST changes: +ACET1TAB23 PO; +CYCL10TA9 PO; +IBUP-1955 PO; +LIDO30AD10 TD
[2024-03-12] MEDS ORDERED: OXYCODONE/APAP 5-325 MG TABLET ONE ×2 (17:43→19:26)
[2024-03-12] MEDS ORDERED: ONDANSETRON ODT 4 MG TAB.RAPDIS ONE (17:44)
[2024-03-12] MEDS: OXYCODONE/APAP 5-325 MG TABLET PO ONE ×2 (17:49→19:30)
[2024-03-12] MEDS: ONDANSETRON ODT 4 MG TAB.RAPDIS SL ONE (17:50)
[2024-03-12 18:11] LABS: BASOPHILS # (AUTO) 0.1 K/UL (0.0-0.2); BASOPHILS % (AUTO) 0.7 % (0.0-2.0); DIFFERENTIAL COMMENT 1; EOSINOPHILS % (AUTO) 0.5 % (0.0-7.0); HEMATOCRIT 38.1 % (31.2-41.9); HEMOGLOBIN 12.7 g/dL (10.9-14.3); LYMPHOCYTES # (AUTO) 2.6 K/uL (0.8-4.8); LYMPHOCYTES % (AUTO) 30.9 % (20.5-51.5); MEAN CORPUSCULAR HGB CONC 33 g/dL (32.3-35.6); MEAN CORPUSCULAR VOLUME 84.3 fL (75.5-95.3); MONOCYTES # (AUTO) 0.5 K/uL (0.1-1.30); NEUTROPHILS # (AUTO) 5.2 K/uL (1.8-8.9); NEUTROPHILS % (AUTO) 61.9 % (38.5-71.5); PLATELET COUNT (AUTO) 242 K/uL (179-408); RED BLOOD CELL COUNT(AUTO) 4.52 MIL/uL (3.63-4.92); WHITE BLOOD COUNT (AUTO) 8.4 K/uL (3.8-11.8)
[2024-03-12 18:18] LABS: *BILIRUBIN,URIN NEGATIVE (NEGATIVE); *BLOOD, URINE NEGATIVE (NEGATIVE); *CLARITY,URINE CLEAR (CLEAR); *COLOR,URINE YELLOW (YELLOW); *KETONES,URINE NEGATIVE (NEGATIVE); *PROTEIN,URINE NEGATIVE (NEGATIVE); *UROBILINOGEN,URINE 0.2 E.U./dl (NORMAL); LEUKOCYTE ESTERASE ,URINE NEGATIVE (NEGATIVE); NITRITE, URINE NEGATIVE (NEGATIVE); PH,URINE 7.5 (5.0-8.0); UGLUCOSE NEGATIVE (NEGATIVE)
[2024-03-12 18:22] LABS: ALANINE AMINOTRANSFERASE 15 U/L (14-59); ALBUMIN 3.1 g/dL (3.4-5.0); ALKALINE PHOSPHATASE 75 U/L (50-136); ASPARTATE AMINOTRANSFERASE 12 U/L (15-37); BILIRUBIN,DIRECT < 0.1 mg/dL (0.0-0.2); BILIRUBIN,TOTAL 0.3 mg/dL (0.2-1.0); CALCIUM 8.1 mg/dL (8.5-10.1); CHLORIDE 104 mmol/L (98-107); CREATININE 0.9 mg/dL (0.6-1.3); GLUCOSE 142 mg/dL (74-106); LIPASE 36 U/L (16-77); SODIUM SERUM 142 mmol/L (136-145); TOTAL PROTEIN, SERUM 6.3 g/dL (6.4-8.2); UREA NITROGEN, BLOOD 13 mg/dL (7-18)
[2024-03-12 18:32] LABS: CARBON DIOXIDE 32 mmol/L (21-32)
[2024-03-12 18:33] LABS: *URINE HCG, QUAL NEGATIVE (NEGATIVE)
[2024-03-12] MEDS ORDERED: OXYC-133 PO (18:47)
[2024-03-12 19:35] VITALS: BP 120/89; O2SAT 98
== END 2024-03-12 19:36 | disposition home or self-care (01) ==
LOC: ER 15:58
DX: Z13.89 Encounter for screening for other disorder (principal); R07.9 Chest pain, unspecified; R63.4 Abnormal weight loss; F17.200 Nicotine dependence, unspecified, uncomplicated; F31.9 Bipolar disorder, unspecified; F41.9 Anxiety disorder, unspecified; K58.9 Irritable bowel syndrome, unspecified; Z79.899 Other long term (current) drug therapy; Z90.49 Acquired absence of other specified parts of digestive tract; Z98.51 Tubal ligation status; Z79.51 Long term (current) use of inhaled steroids; Z59.00 Homelessness unspecified; Z88.7 Allergy status to serum and vaccine
CPT/HCPCS: 36415; 71045; 83690; 84703; 85025; A4606; A4663; Q0162